=== PATIENT | female | born 1955 | race Caucasian/White ===

== ENCOUNTER → 2022-10-20 12:43 | Outpatient (CLI) | payer MEDICARE, SELFPAY ==
--- NOTE | ~2022-10-20 | CT_ITS ---
EXAMINATION: CT abdomen pelvis wo con DATE: 10/20/2022 13:01 INDICATION: Periumbilical abdominal tenderness TECHNIQUE: Computed tomography (CT) of the abdomen and pelvis was performed without intravenous contr ast. Automated exposure control and iterative reconstruction technique were employed. Exam dose: 494 .74 mGy-cm total exam DLP. COMPARISON: 07/29/2017 CT abdomen FINDINGS: There is a prominent discoid bands of atelectasis or scarring in the posterior right lung b ase, right lower lobe. Lung bases are clear of consolidation. Heart size is within normal range. No p ericardial or pleural effusion. Small sliding hiatal hernia. Status post cholecystectomy. No bile duct or pancreatic duct dilatation. There is an approximately 7.9 mm hypoattenuating lesion in the superior aspect of the spleen, not lik viktor of clinical significance. No hepatic or pancreatic space-occupying mass lesion. Normal morphology of the adrenal glands. Nearly completely calcified approximately 10 x 14 mm medial right upper pole lesion smaller more calc ified compared to 07/29/2017. No suspicious renal mass lesion is evident on this limited noncontrast examination. Subtle punctate nonobstructing upper pole left renal calculus. The urinary tract calculus or hydroureteronephrosis. The urinary bladder is unremarkable. Uterus is a bsent. There is atherosclerotic calcification of the abdominal aorta but no abdominal aortic aneurysm. No in traperitoneal or retroperitoneal or pelvic mass lesion or adenopathy or ascites. Diverticulosis of the colon no CT evidence of diverticulitis. No bowel obstruction, bowel wall thicke destiny, pneumatosis or intraperitoneal free air. Moderately severe degenerative disc disease at L5-S1. Included skeletal structures are otherwise unre markable. No suspicious osteolytic or osteoblastic lesions. IMPRESSION: Diminished size and nearly completely calcified lesion at the medial upper pole of right kidney, benign Status post cholecystectomy Status post hysterectomy Diverticulosis of the colon Nonspecific 7.9 mm hypoattenuating lesion of the spleen Reviewed, dictated and finalized at Location [facility]. Reviewed, dictated and finalized at location B. CASTING SUPERVISOR IMPRESSION: Diminished size and nearly completely calcified lesion at the medi al upper pole of right kidney, benign Status post cholecystectomy Status post hysterectomy Diverticulosis of the colon Nonspecific 7.9 mm hypoattenuating lesion of the spleen
== END ==
PROVIDERS: PCP Family Medicine; Visit Provider Family Medicine
DX: R10.815 Periumbilic abdominal tenderness (principal); Z90.49 Acquired absence of other specified parts of digestive tract; K57.30 Diverticulosis of large intestine without perforation or abscess without bleeding
CPT/HCPCS: 74176

== ENCOUNTER 2023-01-08 09:50 | Emergency (ER) | payer MEDICARE, SELFPAY ==
[2023-01-08 09:57] VITALS: BP 159/107; PULSE 105; RESP 19; TEMP 36.7; O2SAT 97
--- NOTE | 2023-01-08 10:03 | ED.EPISTAXIS ---
HPI - Epistaxis General Chief complaint: Epistaxis Stated complaint: nosbleed Source: patient Mode of arrival: EMS Limitations: no limitations History of Present Illness HPI Narrative: Patient is a 67 y/o female who presents to the ED via EMS with report of epistaxis from R nare. Patient reports the bleeding began around 8 AM this morning. She has had seasonal allergies and nosebleeds before, but nothing recently. She is not on any blood thinners. She does note she was recently started on Protonix for acid reflux. Patient was unable to control bleeding at home. She felt like the bleeding began overflowing to her L nare and down her throat. Denies difficulty breathing, recent nasal trauma or picking, congestion, rhinorrhea, fevers. Related Data Allergies Allergy/AdvReac Type Severity Reaction Status Date / Time No Known Allergies Allergy Verified 01/08/23 10:02 Review of Systems Review of Systems: CONSTITUTIONAL: Denies fever, chills, or sweats. ENT: See HPI. CARDIOVASCULAR: Denies chest pain. RESPIRATORY: Denies cough or dyspnea. GASTROINTESTINAL: Denies abdominal pain, nausea, vomiting. All systems reviewed & are unremarkable except as noted in HPI and below PMFSH Past Medical History Medical History Seasonal allergies Surgical History Surgical History No pertinent past surgical history Family History Family History Other Family history of malignant neoplasm of breast Family history of malignant neoplasm of uterus Hypertension Social History Social History Smoking status: Smoker, status unknown Alcohol intake: current Exam Narrative: GENERAL: Well appearing, well-nourished, non-toxic, in no acute distress. HEAD: Normocephalic, atraumatic. EYES: PERRLA/EOMI, conjunctiva clear. ENT: No nasal trauma. No obvious areas of bleeding visualized. Kiesselbach plexus appears unremarkable. Some blood pooling in bilateral nostril abel. Some blood draining down posterior pharynx. NECK: Supple. No adenopathy, no masses. RESPIRATORY: Airway patent, respirations nonlabored. Clear to auscultation bilaterally, no rales, rhonchi, wheezing. CARDIOVASCULAR: Regular rate and rhythm without murmurs, rubs, or gallops. Radial pulses 2+ and equal bilaterally. MUSCULOSKELETAL: Moves all extremities. Strength/ROM intact without gross deformities. SKIN: Warm, dry, normal color. No rashes. NEURO: A&O X3. Speech clear. Cranial nerves II-XII grossly intact. Steady gait. No ataxic movements. PSYCHIATRIC: Appropriate mood and affect. Normal interaction. Course Vital Signs Vital signs: Vital Signs Temperature 98.1 F 01/08/23 09:57 Pulse Rate 105 H 01/08/23 09:57 Respiratory Rate 19 01/08/23 09:57 Blood Pressure 159/107 H 01/08/23 09:57 Pulse Oximetry 97 01/08/23 09:57 Oxygen Delivery Room Air 01/08/23 09:57 Temperature 98.1 F 01/08/23 09:57 Pulse Rate 102 H 01/08/23 10:36 Respiratory Rate 18 01/08/23 10:36 Blood Pressure 142/92 H 01/08/23 10:36 Pulse Oximetry 97 01/08/23 10:36 Oxygen Delivery Room Air 01/08/23 09:57 MDM - Epistaxis MDM Narrative Medical decision making narrative: Unable to visualize area of bleeding. Epistaxis resolved with nasal clamping in the ED, likely anterior. Patient was monitored in the ED and had no recurrence of bleeding. She did not feel lightheaded or dizzy. Son at bedside to take her home and stay with her. She is able to ambulate with a steady gait. Will discharge with epistaxis precautions, nasal clamp, and ENT information for follow-up. Bacitracin ointment and Afrin sent to pharmacy. Patient given strict return precautions. She agrees with plan. Discharged in stable condition. Vitals stable at time of di
[2023-01-08 10:36] VITALS: BP 142/92; PULSE 102; RESP 18; O2SAT 97
== END 2023-01-08 12:22 | disposition home or self-care (01) ==
PROVIDERS: Emergency Provider Physician Assistant; PCP Family Medicine
DX: R04.0 Epistaxis (principal)
CPT/HCPCS: 99283

== ENCOUNTER → 2023-01-13 12:18 | Outpatient (CLI) | payer MEDICARE, SELFPAY ==
--- NOTE | ~2023-01-13 | MR_ITS ---
EXAMINATION: MR abdomen wo/w con DATE: 01/13/2023 13:35 INDICATION: Kidney mass. Splenic mass. TECHNIQUE: Magnetic resonance imaging (MRI) of the abdomen was performed without and with 13 mL Multi Yodit intravenous contrast. COMPARISON: CT abdomen and pelvis 10/20/2022, CT abdomen 07/29/17 FINDINGS: There is an 8 mm cyst in the liver. The gallbladder is absent. There is a 5 mm cyst in the spleen. Th e pancreas and adrenal glands are normal. There are cysts in the kidneys measuring up to 10 mm on the left. There is a 13 mm densely calcified mass of right kidney without enhancing component (Bosniak t ype IIF), decreased in size from 07/29/17, likely benign. There are no pathologically enlarged lymph no britni. There is no free intraperitoneal fluid. There are no dilated loops of bowel. IMPRESSION: 1. No evidence of malignancy. Reviewed, dictated and finalized at location A. PHORIC ACID OPERATOR
== END ==
PROVIDERS: PCP Family Medicine; Visit Provider Family Medicine
DX: N28.89 Other specified disorders of kidney and ureter (principal); R16.1 Splenomegaly, not elsewhere classified
CPT/HCPCS: 74183; A9577

== ENCOUNTER 2025-01-28 14:49 | Observation (INO) | payer MEDICARE, SELFPAY ==
[2025-01-28] VITALS (8 sets, daily range): BP systolic 129–174; BP diastolic 69–93; PULSE 70–84; RESP 16–20; TEMP 36.3–36.4; O2SAT 97–98; BMI 27.9; BMI 28.3
--- NOTE | ~2025-01-28 | CT_ITS ---
CTA brain carotid Ordering provider: Bob Marinelli MD History: . left arm weak and slurring speech . Comparison: None. Technique: CT angiogram head and neck was performed following timed intravenous injection of contrast . Thin slice axial images and reformatted coronal images were obtained. Three dimensional reformatted images of the brain were also obtained using a [employer] workstation. Radiation reduction technique ut ilized.The dose-length product was 1063.51 mGy-cm. 100 mL Omnipaque 350 was given IV. FINDINGS: HEAD: --ANTERIOR AND MIDDLE CEREBRAL ARTERIES AND BRANCHES: Normal caliber and contour. --INTERNAL CAROTID ARTERIES: Mild atheromatous disease but no significant stenosis. No occlusion. --BASILAR ARTERY AND BRANCHES: Normal caliber and contour. No atheromatous disease. --POSTERIOR CEREBRAL ARTERIES: Normal caliber and contour --POSTERIOR COMMUNICATING ARTERIES: Not visualized which is probably related to congenital absence or small size. --ANEURYSM: None visualized. --BRAIN: Please refer to report of CT head performed the same day. --BONES AND SUPERFICIAL SOFT TISSUES: Please refer to report of CT head performed the same day. --PARANASAL SINUSES AND MASTOIDS: Please refer to report of CT head done the same day. NECK: --RIGHT CERVICAL CAROTID SYSTEM: Mild atheromatous disease of the carotid bulb and proximal internal carotid artery without significant stenosis. Percent stenosis per NASCET criteria is 0%. No carotid dissection. Otherwise, no significant atheromatous disease or stenosis of the cervical carotid system . --LEFT CERVICAL CAROTID SYSTEM: Mild atheromatous disease of the carotid bulb and proximal internal c arotid artery without significant stenosis. Percent stenosis per NASCET criteria is 0%. No carotid d issection. Otherwise, no significant atheromatous disease or stenosis of the cervical carotid system. --VERTEBRAL ARTERIES: Dominant left vertebral artery. Normal caliber and contour. --VISUALIZED AORTIC ARCH AND BRANCHING VESSELS: Mild atheromatous disease but no significant stenosis . Dependent atelectatic changes. --SOFT TISSUES: Normal. Small submental lymph nodes. Slightly enlarged submandibular lymph nodes. --CERVICAL SPINE: Age appropriate degenerative changes. IMPRESSION: 1. Normal CTA head and neck. Percent stenosis per NASCET criteria is Reviewed, dictated and finalized at location A.
--- NOTE | ~2025-01-28 | CT_ITS ---
CT brain wo con Ordering provider: Bob Marinelli MD History: 69 years Female with . left arm weak and slurring speech . Comparison: None. Technique: CT of the head without contrast. Radiation reduction technique utilized.The dose-length product was 605.33 mGy-cm. FINDINGS: BRAIN PARENCHYMA AND CSF SPACES: Mild leukoaraiosis and diffuse cortical atrophy. Mild atheromatous d isease. No midline shift, mass effect or hemorrhage. The brain parenchyma and CSF spaces are otherwi se normal. Empty sella turcica. VISUALIZED PARANASAL SINUSES: Right maxillary sinus disease. MASTOIDS: Well aerated. BONES: The bones appear intact. SOFT TISSUES: Visualized nasopharynx is normal. Superficial soft tissues are normal. IMPRESSION: No acute intracranial findings. Reviewed, dictated and finalized at location A.
--- NOTE | ~2025-01-28 | MR_ITS ---
EXAMINATION: MR brain/brain stem wo/w con DATE: 01/29/2025 09:18 INDICATION: Left hemiparesis. Slurred speech. TECHNIQUE: Magnetic resonance imaging (MRI) of the brain and brainstem was performed without and with 15 mL ProHance intravenous contrast. COMPARISON: Head CT 01/28/2025 FINDINGS: There are scattered areas of nonspecific increased T2-weighted signal intensity in the cere bral white matter and isaac and left basal ganglia. There is no intracranial hemorrhage, acute infarct ion, or abnormal intracranial mass lesion. The ventricles are normal in size. The orbits are normal. There is mild mucosal thickening in the paranasal sinuses. The mastoid air cells are normal. IMPRESSION: 1. Extensive nonspecific cerebral white matter disease and pontine disease and left basal ganglia dis ease, which likely represents chronic small vessel ischemic disease. Reviewed, dictated and finalized at location B. IMPRESSION: 1. Extensive nonspecific cerebral white matter disease and pontine disease and left basal ganglia disease, which likely represents chronic small vessel ischem ic disease.
--- NOTE | ~2025-01-28 | XR_ITS ---
XR chest 1V portable Ordering provider: Bob Marinelli MD History: 69 years Female with . 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 Comparison: None. FINDINGS: MEDIASTINUM: The cardiac silhouette is not enlarged. LUNGS: No infiltrates, effusions or pneumothorax. Underlying fibrotic changes. OTHER: No free air under the diaphragm. IMPRESSION: No acute cardiopulmonary pathology. Reviewed, dictated and finalized at location A.
--- NOTE | 2025-01-28 14:58 | ECG_ITS ---
Test Date: 2025-01-28 15:51:51 Measurements Intervals [place] Rate: 75 P: 56 MI: 192 QRS: 23 QRSD: 85 T: -2 QT: 366 QTc: 409 Interpretive Statements SINUS RHYTHM SEPTAL MYOCARDIAL INFARCTION , OF INDETERMINATE AGE [40+ ms Q WAVE IN V1/V2] NONSPECIFIC T WAVE ABNORMALITY Compared to ECG 01/28/2025 15:38:44 NO SIGNIFICANT CHANGES Electronically Signed On 01-29-2025 14:31:21 CDT by Robin Ruiz M.D.
--- NOTE | 2025-01-28 15:00 | ED_ITS ---
HPI - Neuro Symptoms/Deficit General Chief Complaint: Suspected CVA Stated Complaint: Left hand numb, visual changes, speech slurry Time Seen by Provider: 01/28/25 14:58 History of Present Illness HPI Narrative: 69-year-old female with a past medical history including migraine headaches, hyperlipidemia, 45 pack year smoking history. Patient presents to the emergency department today with sudden onset left upper extremity deficits and slowing of her speech that happened at about 1:15 p.m. and witnessed by the son who is providing collateral formation. 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 Her son noted that she had garbled speech. Upon arrival to the emergency department most of her symptoms have since resolved and she currently has an NIH stroke scale 0 in the stroke stop triage. Patient endorses a mild headache at this time but no deficits. No fever, chills, chest pain, shortness with, back pain, neck pain, trauma or injury. No history of stroke or TIA in the past. Takes rosuvastatin but no other prescription medications. Related Data Home Medications ?Medication ?Instructions ?Recorded ?Confirmed ?Last Taken ?Type loratadine 10 mg tablet 10 mg PO DAILY 01/12/23 01/13/23 Unknown History Allergies Allergy/AdvReac Type Severity Reaction Status Date / Time No Known Allergies Allergy Verified 01/28/25 14:51 Review of Systems 2 Review of Systems: As reviewed above in HPI [facility] Past Medical History Medical History Seasonal allergies Surgical History Surgical History No pertinent past surgical history Family History Family History Mother Cancer Depression Heart disease Cerebrovascular accident Grandparent Cancer Diabetes mellitus Hypertension Cerebrovascular accident Other Family history of malignant neoplasm of breast Family history of malignant neoplasm of uterus Social History Social History Smoking status: Smoker, status unknown Alcohol intake: current Exam 2 Narrative: GENERAL: [Well-appearing, well-nourished, and in no acute distress.] HEAD: [Normocephalic, atraumatic.] EYES: [PERRLA and EOMI.] ENT: Nares clear, no rhinorrhea or epistaxis. Mucous membranes moist. NECK: Supple. CHEST: [Clear to auscultation. No respiratory distress.] HEART: [Regular rate and rhythm]. No murmur heard. [Normal peripheral pulses.] ABDOMEN: [Soft, nondistended], [nontender], [No rigidity or guarding] EXTREMITIES: Normal range of motion. [No edema.] SKIN: Warm, dry, no rash. NEURO: [No focal deficits]. Alert and oriented [x3.] PSYCH: [Normal mood and affect.] Course Vital Signs Vital signs: Vital Signs Temperature 36.4 C 01/28/25 15:36 Pulse Rate 79 01/28/25 15:36 Respiratory Rate 18 01/28/25 15:36 Blood Pressure 174/88 H 01/28/25 15:36 Pulse Oximetry 97 01/28/25 15:36 Oxygen Delivery Room Air 01/28/25 15:36 Temperature 36.4 C 01/28/25 15:36 Pulse Rate 84 01/28/25 15:48 Respiratory Rate 20 01/28/25 15:48 Blood Pressure 174/88 H 01/28/25 15:36 Pulse Oximetry 98 01/28/25 15:52 Oxygen Delivery Room Air 01/28/25 15:52 MDM - Neuro Symptoms/Deficit MDM Narrative Medical decision making narrative: 69-year-old female presenting for suspected CVA versus TIA versus hemiplegic migraine. Patient presents to the emergency department with a complaint of headache, left upper extremity deficits and speech deficits with slurring of her words. Sudden-onset 1:15 p.m. witnessed by family at bedside. Symptoms have since resolved upon arrival to the ED with a toe NIH stroke scale 0. No history of anything like this happened during the past. She is slightly hypertensive the blood pressure 174/88, no tachycardia, fever, hypoxia or tachypnea. She was sent to CT scan with CT angiography and non con orders at this time. Cardiac workup ordered including troponin, EKG, chest x-ray and basic laboratory studies. Patient was frequent re-evaluated. During my 2nd re-evaluation patient had complete resolution of her headache without any intervention. Maintain with hemodynamic stability without any vital concerns at this time. CT scan and CT angiography scan shows no acute intracranial hemorrhage or acute occlusive event, dissection, aneurysm. Cardiac workup was unremarkable, negative troponin, normal EKG and negative chest x-ray. I spoke to the neurologist of call and relayed the concerns for potential TIA. Recommendations to order MRI with and without contrast and this start the patient on dual antiplatelet therapy in addition to her statin. Patient was given 325 mg aspirin 375 mg of Plavix and scheduled aspirin Plavix tomorrow. Awaiting hospitalist call for admission to a telemetry monitored bed at this time. Patient comfortable with the plan of care for admission and MRI imaging. Spoke to the hospitalist currently being covered by the midlevel provider Roula Larson. Patient was accepted to a telemetry monitored bed at this time. Admit orders placed. Medical Records Attestation: I reviewed the patient's medical records. Lab Data Attestation: I reviewed the patient's lab results. 01/28/25 15:05 01/28/25 15:07 Labs: Lab Results 01/28/25 01/28/25 01/28/25 Range/Units 14:55 15:05 15:07 WBC 9.0 (4.5-10.0) K/mm3 RBC 4.49 (4.2-5.4) M/mm3 Hgb 13.3 (12.0-15.0) g/dL Hct 39.1 (37.0-47.0) % MCV 87.1 (80-100) fl MCH 29.6 (26-34) pg MCHC 34.0 (32-36) g/dl RDW 12.2 (11.5-14.5) % Plt Count 321 (150-375) k/mm3 MPV 9.8 (7.4-10.4) fl Immature Gran % (Auto) 0.2 (0-0.5) % Neut % (Auto) 64.1 (45.5-73.1) % Lymph % (Auto) 28.8 (18.3-44.2) % Collier % (Auto) 4.3 (2.6-8.5) % Eos % (Auto) 2.2 (0-4.4) % Baso % (Auto) 0.4 (0.2-1.2) % Lymph # (Auto) 2.58 (0.9-3.2) K/mm3 Collier # (Auto) 0.4 (0.1-0.6) K/mm3 Eos # (Auto) 0.2 (0-0.3) K/mm3 Baso # (Auto) 0.0 (0.0-0.1) K/mm3 Abs Immat Gran (auto) 0.02 (0.00-0.031) K/mm3 Absolute Neuts (auto) 5.7 (1.3-6.7) K/mm3 Absolute Nucleated RBC 0.000 (0.0-0.012) K/mm3 Nucleated RBC % 0.0 (0.0-0.2) % PT 13.5 (11.1-14.7) Seconds INR 1.0 APTT 24.6 (22.3-36.8) Seconds Sodium 139 (137-145) mmol/L Potassium 3.8 (3.4-5.0) mmol/L Chloride 104 (98-107) mmol/L Carbon Dioxide 23 (22-30) mmol/L Anion Gap 12 (4-12) mmol/L BUN 13 (7-17) mg/dL Creatinine 0.93 1.00 (0.7-1.0) mg/dL Estim Creat Clear Calc Not Reportable Not Reportable Estimated GFR 60 55 L (59 - ) Glucose 118 H (65-110) mg/dL POC Capillary Glucose 113 H (65-105) mg/dl Calcium 9.8 (8.4-10.2) mg/dL Total Bilirubin 0.8 (0.2-1.3) mg/dL AST 25 (14-36) U/L ALT 20 (6-35) U/L Alkaline Phosphatase 87 (38-126) U/L Troponin I < 0.012 (0.000-0.034) ng/mL Total Protein 8.0 (6.3-8.2) g/dL Albumin 4.7 (3.5-5.1) g/dL Imaging Data Attestation: I personally reviewed and interpreted this imaging study as follows: My impression: Impressions Head CT 01/28/25 15:04 IMPRESSION: No acute intracranial findings. Head/Neck CTA 01/28/25 15:14 IMPRESSION: 1. Normal CTA head and neck. Percent stenosis per NASCET criteria is Chest X-Ray 01/28/25 15:41 IMPRESSION: No acute cardiopulmonary pathology. ECG Data EKG #1: Attestation: I personally reviewed and interpreted this ECG as follows: ECG completion date: 01/28/25 ECG completion time: 15:38 Prior ECG tracings: not available for review Interpretation: Normal sinus rhythm, regular rate, regular rhythm and axis. No ST segment elevations, depressions or inversions. No previous EKG for comparison. QTC 424, QRS 89, ID interval 191. Overall final determination normal sinus rhythm. Critical Care Time Critical Care Time Critical Care Time: Yes Total Critical Care Time: 35 Discharge Plan Discharge Clinical Impression: Transient ischemic attack (TIA), Migraine Patient Disposition: Still a Patient Condition: Stable Patient Language: Namibian Prescriptions: No Action loratadine 10 mg tablet 10 mg PO DAILY Follow-up/Referrals: Oscar,Fly Marcano MD [Primary Care Provider] - Time of Disposition: 16:13 Quality Stroke Scale Stroke Scale 1: Stroke scale date:: 01/28/25 Stroke scale time:: 15:00 1a Level of consciousness: alert-0 1b Level of consciousness questions: answers both correctly-0 1c Level of consciousness commands: obeys both correctly-0 2 Best gaze: normal-0 3 Visual: no visual loss-0 4 Facial palsy: normal-0 5a Motor: left arm: no drift-0 5b Motor: right arm: no drift-0 6a Motor: left leg: no drift-0 6b Motor: right leg: no drift-0 7 Limb ataxia: absent-0 8 Sensory: normal-0 9 Best language: no aphasia-0 10 Dysarthria: normal-0 11 Extinction and inattention: no abnormality-0 Level:: 0
[2025-01-28 15:08] LABS: Estimated Glomerular Filt Rate 55
[2025-01-28 15:13] LABS: Basophils Percent Auto 0.4 % (0.2-1.2); Eosinophils Absolute Auto 0.2 K/mm3 (0-0.3); Eosinophils Percent Auto 2.2 % (0-4.4); Hematocrit 39.1 % (37.0-47.0); Hemoglobin 13.3 g/dL (12.0-15.0); Immature Granulocyte Absolute 0.02 K/mm3 (0.00-0.031); Immature Granulocyte Percent A 0.2 % (0-0.5); Lymphocytes Absolute Auto 2.58 K/mm3 (0.9-3.2); Lymphocytes Percent Auto 28.8 % (18.3-44.2); Mean Corpuscular Hemoglobin 29.6 pg (26-34); Mean Corpuscular Volume 87.1 fl (80-100); Mean Platelet Volume 9.8 fl (7.4-10.4); Monocytes Absolute Auto 0.4 K/mm3 (0.1-0.6); Monocytes Percent Auto 4.3 % (2.6-8.5); Neutrophils Absolute Auto 5.7 K/mm3 (1.3-6.7); Neutrophils Percent Auto 64.1 % (45.5-73.1); Platelet Count Result 321 k/mm3 (150-375); Red Blood Count 4.49 M/mm3 (4.2-5.4); Red Cell Distribution Width 12.2 % (11.5-14.5)
[2025-01-28 15:24] LABS: Alanine Aminotransferase 20 U/L (6-35); Albumin Level 4.7 g/dL (3.5-5.1); Alkaline Phosphatase 87 U/L (38-126); Anion Gap 12 mmol/L (4-12); Aspartate Amino Transferase 25 U/L (14-36); Bilirubin,Total 0.8 mg/dL (0.2-1.3); Blood Urea Nitrogen 13 mg/dL (7-17); Calcium 9.8 mg/dL (8.4-10.2); Carbon Dioxide 23 mmol/L (22-30); Chloride 104 mmol/L (98-107); Estimated Glomerular Filt Rate 60; Glucose 118 mg/dL (65-110); Potassium 3.8 mmol/L (3.4-5.0); Sodium 139 mmol/L (137-145)
[2025-01-28 15:34] LABS: Prothrombin Time 13.5 Seconds (11.1-14.7)
[2025-01-28 15:35] LABS: Partial Thromboplastin Time 24.6 Seconds (22.3-36.8); Troponin I < 0.012 ng/mL (0.000-0.034)
--- NOTE | 2025-01-28 15:47 | ECG_ITS ---
Test Date: 2025-01-28 15:38:44 Measurements Intervals [place] Rate: 79 P: 59 IA: 191 QRS: 18 QRSD: 89 T: -4 QT: 370 QTc: 424 Interpretive Statements SINUS RHYTHM WITH SINUS ARRHYTHMIA SEPTAL MYOCARDIAL INFARCTION , OF INDETERMINATE AGE [40+ ms Q WAVE IN V1/V2] BASELINE ARTIFACT LIMITS INTERPRETATION No previous ECG available for comparison Electronically Signed On 01-29-2025 14:30:40 CDT by Robin Ruiz M.D.
[2025-01-28 16:07] LABS: Glucose Point of Care 113 mg/dl (65-105)
[2025-01-28] MEDS: CLOPIDOGREL BISULFATE 75 MG TABLET 375 MG PO (16:22)
[2025-01-28] MEDS: ASPIRIN 325 MG TABLET PO (16:23)
--- OUTSIDE RECORDS SUMMARY | 2025-01-28 17:24 | XMS_ITS | Clinical Summary ---
Author Organization [facility] Address [address], [facility] [address] [place] [address] Phone Care Team Providers Care Boiler Inspector Name Role Phone Fly Moore MD Primary Care Provider Allergies No known active allergies Medications aspirin EC 81 MG Tablet Delayed Response Take 81 mg by mouth daily. Active Loratadine (CLARITIN PO) Take by mouth daily as needed. Active hyoscyamine (LEVSIN SL) 0.125 MG SL Tablet 125 mcg by Sublingual route every 4 hours as needed for Cramping. Active Family History Medical History Relation Name Comments Cerebral Anuerysm Father Cancer Mother cervical, uteri ne, skin Congestive Heart Failure Mother Hypertension Mother Relation Name Status Comments Father Mother Alive Social History Tobacco Use Types Packs/Day Years Used Date Smoking Tobacco: Every Day Cigarettes 0.5 54.2 Started: 11/01/1970 Smokeless Tobacco: Never Alcohol Use Standard Drinks/Week Comments Yes 0 (1 standard drink = 0.6 oz pur e alcohol) rarely-2 drinks per month Comments Unknown Sex and Gender Information Value Date Recorded Sex Assigned at Not on file Legal Sex Female 1:02 PM CDT Gender Identity Not on file Sexual Orientation Not on file Last Filed Vital Signs Vital Sign Reading Time Taken Comments Blood Pressure 118/72 01/10/2018 8:15 AM SPINNING MULE OPERATOR Pulse 74 01/10/2018 8:15 AM SPINNING MULE OPERATOR Temperature 36 C (96.8 F) 01/10/2018 8:15 AM SPINNING MULE OPERATOR Respiratory Rate 20 01/10/2018 8:15 AM SPINNING MULE OPERATOR Oxygen Saturation 96% 01/10/2018 8:15 AM SPINNING MULE OPERATOR Inhaled Oxygen Concentration - - Weight 58.1 kg (128 lb) 01/04/2018 1:00 PM SPINNING MULE OPERATOR Height 162.6 cm (5' 4 ) 01/04/2018 1:00 PM SPINNING MULE OPERATOR Body Mass Index 21.97 01/04/2018 1:00 PM SPINNING MULE OPERATOR Plan of Treatment Health Maintenance Due Date Last Done Comments DEXA Bone Density 1955 Hepatitis C Virus (HCV) Screening 1955 TdaP Immunization 1955 Cologuard 2007 Immunochemical Fecal Occult Blood 2007 Mammogram 2007 Zoster Immunization (1 of 2) 2007 Colonoscopy 01/10/2019 01/10/2018, 12/23, 11/07/2017 Colorectal Cancer Screening 01/10/2019 Pneumococcal Immunization (50+ years) (2 of 2 - PPSV23) 06/24/2023 06/24/2022 Influenza Immunization (#1) 07/22/202409/21, 08/20/2020, 08/20/2019, Additional history exists SARS-COV-2 Immunization ( season) 2024 11/15/2021, 01/23/2021 Respiratory Syncytial Virus (RSV) Immunization (Adult) (1 - 1-dose 75+ series) 2032 01/10/2018, 12/23, 11/07/2017 Pneumococcal Immunization Combined Discontinued 06/24/2022 Hepatitis B Immunization Aged Out No longer eligible based on patient's age to complete this topic Meningococcal Immunization (ACWY) Aged Out No longer eligible based on patient's age to complete this topic Rotavirus Immunization Aged Out No lo nger eligible based on patient's age to complete this topic Insurance MEDICAID [employer] MEDICARE C [employer] Care Teams Boiler Inspector Relationship Specialty Start Date End Date Fly Moore MD [address] [place] [address] PCP - General Family Medicine 11/04/22
--- OUTSIDE RECORDS SUMMARY | 2025-01-28 17:24 | XMS_ITS | Continuity of Care Document ---
Author Organization [facility] Address [address] [place] [address] Phone Care Team Providers Care Digester Cook Name Role Phone Ciaran Guzman MD Unavailable Unavailable Allergies, Adverse Reactions, Alerts Substance Reaction Status Criticality metronidazole Other Active No Information METRONIDAZOLE HCL Other Active No Informa tion Medications Medication Instructions Dosage Effective Dates (start - stop) Status Comments Levsin/SL 0.125 mg sublingual tablet Take 1 tablet by mouth 4 times a day as needed. - Active Prilosec OTC 20 mg tablet,delayed release take 1 by Oral route once prn 1 - Active Advance Directives Directive Yes / No Effective Date File Name No Information Encounters Encounter Description Practice Location Reason(s) For Visit Diagnoses Date Provider Providers Copied on Encounter [facility] [address], [place], [place], [address] , tel: [phone] [place] No Information 7 Megan Wagoner. [address] [address], [place], [place], [address] , [place]. tel: [phone] [facility] [address], [place], [place], [address] , [place] tel: [phone] [place] Abnormal CT scan, kidney 6 Megan Wagoner. [address], [facility] [address], [place], [place], [address] , . tel: [phone] [employer] [address], [place], [place], [address] , tel: [phone] [place] Epigastric abdominal painLower abdominal painTobacco useAbnormal CT scan, kidneyFamily disruption due to divorce or legal separation 6 Woodrowcody Edwards. [address], [address], [place], [place], [address] . tel: [phone] Referring Provider: Ciaran Guzman, [address] [place] [address] [address], [place], [address] . tel:[phone] [facility], [address], [place], [place], [address] , [place] tel: [phone] [facility] Tobacco AbuseExternal hemorrhoidMigraineDi verticulitis of sigmoid colonCyst of right kidneySPECIAL SCREENING FOR MALIGNANT NEOPLASMS, OTHER SITES 4 Pricila Grace. [address], [address], [place], [place], [address] . tel: [phone] Referring Provider: Ciaran Guzman, [address] [place] [address] [address], [place], [address] . tel:[phone] [facility] [address], [place], [place], [address] , [place] tel: [phone] [place] No Information Jan- 3 Pricila Edwards. [facility] [address], [place], [place], [address] . tel: [phone] [employer] [address], [place], [place], [address] , [place] tel: [phone] [facility] Allergic rhinitis, cause unspecifiedOther and unspecified hyperlipidemiaOsteop orosis, unspecifiedDisorder of bone and cartilage, unspecifiedMigraine, unspecified without mention of intractable migraineEnlargement of lymph nodesTobacco useVitamin d deficiencyFamily history of breast cancerOther and unspecified hyperlipidemiaRoutin e gynecological examinationSPECIAL SCREENING FOR MALIGNANT NEOPLASMS, OTHER SITES Jan- 3 Pricila Edwards. [address], [place], [place], [address] . tel: [phone] Referring Provider: Ciaran Guzman [address] [place] [address] [address], [place], [address] . tel:[phone] [facility], [address], [place], [place], [address] , [place] tel: [phone] [facility] POSTMENOPAUSAL BLEEDING 1 Megan Wagoner. [address], [address], [place], [place], [address] , [place]. tel: [phone] [facility], [address], [place], [place], [address] , [place] tel: [phone] [facility] VITAMIN D DEFICIENCY NOS 1 Pricila Domingon. [address] [place] [address], [address], [place], [place], [address] . 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 [address] [place] [address], [address], [place], [address], [place]. tel: [phone] [facility], [address], [place], [address] , [place] tel: [phone] [facility] MENOPAUSAL DISORDER NECSCREEN MAL NEOP-CERVIXFAMILY HX-BREAST MALIGPURE HYPERCHOLESTEROLEM 1 Pricila Grace. [address] [place] [address], [facility] [address], [place], [place], [address] . tel: [phone] [facility], [address], [place], [place], [address] , [place] tel: [phone] [facility] VRNT MGRN W NTRC MGR NEC 0 Pricila Grace. [address] [place] [address], [address], [place], [place], [address] . tel: [phone] [facility], [address], [place], [place], [address] , [place] tel: [phone] [facility] NONRUPT CEREBRAL ANEURYMHYPERLIPIDEMI A NEC/NOSVISUAL DISCOMFORT 0 Megan Jacobsen. [address], [address], [place], [place], [facility], [place]. tel: [phone] [employer] [address], [place], [place], [address] , [place] tel: [phone] [facility] DERMATITIS NOSSCREEN-DIABETES MELLITUSSCREEN MALIG [id number] WILMA HEART DIS 8 Megan Jacobsen. [address], [address], [place], [place], [facility], [place]. tel: [phone] [employer] [address], [place], [place], [address] , [place] tel: [phone] [facility] ACUTE SINUSITIS NOSAC SUPP OTITIS MEDIA NOS 7 Megan Jacobsen. [address] [place] [address], [facility] [address], [place], [facility], [place]. tel: [phone] [employer] [employer] [address], [place], [place], [address] , [place] tel: [phone] [facility] JOINT PAIN-L/LEGENTHESOPAT HY OF HIPCALCIF TENDINITIS SHLDERABN PAP CERVIX HPV NEC 7 Megan Jacobsen. [address] [place] [address], [address], [place], [facility], [place]. tel: [phone] [facility], [address], [place], [place], [address] , [place] tel: [phone] [facility] FAMILY HX-STROKE 7 Mscody Domingon. [address] [place] [address], [facility] [address], [place], [place], [address] . tel: [phone] [employer] [address], [place], [place], [address] , [place] tel: [phone] [place] CARBUNCLE NOS 7 Woodrowcody Grace. [address] [place] [address], [facility] [address], [place], [place], [address] . tel: [phone] [facility], [address], [place], [place], [address] , [place] tel: [phone] [facility] FAM HX-DIABETES MELLITUS 7 Woodrowcody Edwards. [address], [address], [place], [place], [address] . tel: [phone] [facility], [address], [place], [place], [address] , [place] tel: [phone] [facility] ROUTINE MEDICAL EXAMOSTEOPOROSIS NOS 5 Megan Delmar. [address], [address], [place], [address], [place]. tel: [phone] [facility], [address], [place], [place], [address] , [place] tel: [phone] [place] SPRAIN LUMBAR REGION 4 Woodrowcody Edwards. [address] [place] [address], [address], [place], [place], [address] . tel: [phone] [facility], [address], [place], [place], [address] , [place] tel: [phone] [place] ABN GLANDULAR PAP SMEAR 4 Meganyonathan Jacobsen. [address], [address], [place], [address], [place]. tel: [phone] [facility], [address], [place], [place], [address] , [place] tel: [phone] [facility] SYMPT FEM CLIMACT STATEGYNECOLOGIC EXAMINATION 0 4 Pricila Edwards. [facility] [address], [place], [place], [address] . tel: [phone] [facility], [address], [place], [address] , [place] tel: [phone] [place] ACUTE CONJUNCTIVITIS NOS 2 4 Pricila Edwards. [address], [place], [place], [address] . tel: [phone] [facility], [address], [place], [place], [address] , [place] tel: [phone] [facility] HEADACHE Feb- 4 Pricila Edwards. [address], [facility] [address], [place], [place], [address] . tel: [phone] [facility], [address], [place], [place], [address] , tel: [phone] [facility] ALLERGIC RHINITIS NOS Feb- 8200 4 Pricila Edwards. [address] [place] [address], [address] [address], [place], [place], [address] . tel: [phone] [facility], [address], [place], [place], [address] , tel: [phone] [facility] LUMBAGO Sep-0 2200 3 Pricila Edwards. [address] [place] [address], [address] [address], [place], [place], [address] . tel: [phone] [facility], [address], [place], [place], [address] , tel: [phone] [facility] VAGINITIS NOSCANDIDAL VULVOVAGINITISSEBACE OUS CYSTFM HX-ENDO/METAB DIS NECAC SEROUS OTITIS MEDIA 9200 3 Pricila Edwards. [address] [place] [address], [address] [address], [place], [place], [address] . tel: [phone] [facility], [address], [place], [place], [address] , tel: [phone] [facility] FAMILY HX-GI MALIGNANCY 2 Pricila Edwards. [address] [place] [address], [place], [place], [address] . tel: [phone] Family History Family Member Type Diagnosis Age At Onset Problem (finding) Family history of cance r of colon Mom, MGM Problem (finding) malignant neoplasm of m doug breast Dad, p uncle, cousin Problem (finding) Cererbral aneur ysm Mother Problem (finding) diabetes melli tus in first degree relative Mother Problem (finding) coronary arterioscleros is MGM Problem (finding) stroke Immunizations Vaccine Date Status Comments 72657 - Tetanus_Diptheria_Pertussis_Tdap administered Source: Source Unspecified Payers Payer name Insurance type Covered constitution party ID Authoriza tion(s) [facility] CI [id number] Social History Type Description Quantity Date Captured Comments Alcohol Use Details Unknown Caffeine Use Details Unknown Tobacco Use Status No Information Smoking Status No Information Sex Female Chief Complaint And Reason For Visit No Information Reason For Referral Reason For Referral No Information History Of Present Illness Encounter Date Complaint History Of Prese nt Illness No Information Functional Status Date Functional Assessmen t No Information Instructions Date Instruction Additional Infor mation No Information Assessments Type Assessment Date No Information Patient Care Teams Name Effective Dates (start - stop) Status Members No Information
--- OUTSIDE RECORDS SUMMARY | 2025-01-28 17:24 | XMS_ITS | Clinical Summary ---
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 Name Role Phone Fly Moore MD Primary Care Provider [phone] Allergies Active Allergy Reactions Criticality Noted Date Comments Pantoprazole Other (See comments) Low 12/28/2023 Nose bleeds Medications loratadine 10 mg capsule Take by mouth daily as needed Active cholecalciferol (VITAMIN D-3) 5,000 unit tablet Active rosuvastatin (CRESTOR) 10 mg tablet TAKE 1 TABLET BY MOUTH EVERY DAY 30 tablet 2 5 Active olopatadine (PATANOL) 0.1 % ophthalmic solutionIndicat ions:Allergic Conjunctivitis, Ocular Symptom Associated with Allergic Rhinitis Administer 1 drop into both eyes 2 (two) times a day as needed for allergies 15 mL 2 5 12/28/19 26 Active celecoxib (CeleBREX) 50 mg capsuleIndicati ons:Trigger middle finger of right hand,Trigger ring finger of right hand Take 1 capsule (50 mg total) by mouth 2 (two) times a day 60 capsule 5 01/06/20 25 Active Problems Problem Noted Date Diagnosed Date Trigger ring finger of right hand 12/07/2024 Right hand pain 12/07/2024 Trigger middle finger of right hand 12/07/2024 Trigger finger, right middle finger 06/27/2024 Primary hypertension 06/27/2023 Assessment & Plan (12/28/2023 10:08 AM IRON MINER): Blood Pressure Follow-up: Lifestyle modifications education provided on sodium reduction, increase physical activity, reduce alcohol consumption, and weight reduction. Awaiting labs Mixed hyperlipidemia 06/27/2023 Assessment & Plan (12/28/2023 10:08 AM IRON MINER): Awaiting lipid panel Vitamin D insufficiency 06/27/2023 Family history of colon cancer in mother 022 Overview (11/01/2022): Added automatically from request for surgery [id number] Personal history of colonic polyps 11/01/2022 Overview (11/01/2022): Added automatically from request for surgery [id number] Encounter for Medicare annual wellness exam 03/2022 Assessment & Plan (12/28/2024 8:39 AM IRON MINER): A(n) yearly Medicare Annual Wellness Visit has been performed today. Mary Rojas is not up to date on screening tests. She is in need of DEXA and Hepatitis B. She is up to date on needed preventative vaccinations. We discussed healthy lifestyle habits, educational material has been given. Medications reviewed, changes documented as per the medical record and discussed with patient along with risks vs benefits. Return in 6 months Assessment & Plan (06/27/2023 9:50 AM CDT): A(n) yearly Medicare Annual Wellness Visit has been performed today. Mary Rojas is not up to date on screening tests. She is in need of Lung cancer screening and Cholesterol screening- Lung cancer screen ordered. She is not up to date on needed preventative vaccinations; She is in need of Pneumonia (Prevnar-13 or Pneumovax- 23) and Covid-19 (booster). We discussed healthy lifestyle habits, educational material has been given. Medications reviewed, changes documented as per the medical record and discussed with patient along with risks vs benefits. Return in 6 months Assessment & Plan (06/25/2022 5:27 PM CDT): A(n) initial Medicare Annual Wellness Visit has been performed today. Mary Rojas is not up to date on screening tests. She is in need of DEXA, Breast cancer screening, Lung cancer screening and Colon cancer screening. She is not up to date on needed preventative vaccinations; She is in need of Covid-19 (booster). Encounters Date Type Department Care Team Description 12/31/2024 Patient Message [facility] Primary Care at [address] [phone] Fly Moore MD Dermatology referral 12/28/2024 8:00 AM IRON MINER Office Visit [facility] Primary Care at [address] [phone] Fly Moore MD Encounter for Medicare annual wellness exam (Primary Dx); Vitamin D insufficiency; Primary hypertension; Mixed hyperlipidemia; Screening for osteoporosis; Seasonal allergies; Asymptomatic menopausal state; Screening exam for skin cancer 12/26/2024 3:17 PM IRON MINER - 12/26/2024 11:59 PM IRON MINER Hospital Encounter [address] [address] Personal history of tobacco use Discharge Disposition: Discharge to home or self care 12/26/2024 8:15 AM IRON MINER Office Visit [facility] Hand Surgery [address] [facility] [address] [place] [phone] Delmy Harrison, PAT Trigger middle finger of right hand (Primary Dx); Trigger finger, right middle finger 12/24/2024 9:30 AM IRON MINER Lab [facility] Outpatient Lab at [address] [phone] Mixed hyperlipidemia (Primary Dx) 12/24/2024 9:27 AM IRON MINER - 12/24/2024 11:59 PM IRON MINER Hospital Encounter [address] [address] Primary hypertension; Mixed hyperlipidemia Discharge Disposition: Discharge to home or self care 12/21/[address] [address] Ines Nunn RN 12/13/2024 9:30 AM IRON MINER - 12/13/2024 10:00 AM IRON MINER Surgery [facility] OR [address] [place] [phone] Casa New MD RIGHT LONG AND RING A1 WALT RELEASE 12/13/2024 7:08 AM IRON MINER - 12/13/2024 9:50 AM IRON MINER Hospital Encounter [facility] Main OR [address] [place] [address] Casa New MD Trigger middle finger of right hand [M65.331] (Primary Dx); Trigger ring finger of right hand [M65.341] Discharge Disposition: Discharge to home or self care 12/07/2024 7:45 AM IRON MINER Office Visit [facility] Hand Surgery [address] [facility] [address] [place] [phone] Casa New MD Right hand pain (Primary Dx); Trigger finger, right middle finger; Trigger middle finger of right hand; Trigger ring finger of right hand 12/07/2024 7:38 AM IRON MINER - 12/07/2024 11:59 PM IRON MINER Hospital Encounter [facility] MOB 1 DIAG IMG [address] [place] [address] Right hand pain Discharge Disposition: Discharge to home or self care from Last 3 Months Immunizations Immunization Administration Dates Next Due Influenza, Quadrivalent, Diana l Culture-based MDCK, Preservative Free, Antibiotic Free, Intramuscular 08/20/2020 Influenza, Quadrivalent, Hig h Dose, Preservative Free, Intrr 10/05/2022 Influenza, Quadrivalent, Spl it, Preservative Free, Intramuscular 08/20/2019,08/09/2018,09/19/2017 Influenza, Trivalent, High D ose, Split, Preservative Free, Intramuscular 08/23/2024 Influenza, Unspecified 12/28/2023(Deferr ed: Patient Refused),11/21/2022(Deferred: Patient Refused),10/05/2022(Deferred: Other) Pneumococcal Conjugate PCV 13 06/24/2022 Pneumococcal Conjugate Pcv20 06/27/2023 Surgical History Surgery Date Site/Laterality Comments CHOLECYSTECTOMY Cholecystectomy TOTAL ABDOMINAL HYSTERECTOMY Hysterectomy, total RHINOPLASTY Rhinoplasty TONSILLECTOMY Tonsillectomy BUNIONECTOMY Medical History Medical History Date Comments Irritable bowel syndrome Allergic Osteopenia Diverticulitis Hyperlipemia Family History Medical History Relation Name Comments Cerebral aneurysm Father Breast cancer Maternal Grandmother Arthritis Mother Breast cancer Mother Cancer, breast ; Dementia Mother Uterine cancer Mother Cancer, uteri ne; Relation Name Status Comments Brother Alive Father Maternal Grandmother Mother Alive Sister 1 Alive Sister 2 Alive Social History Tobacco Use Types Packs/Day Years Used Date Smoking Tobacco: Former Cigarettes 1 49 1 970 - 2019 Smokeless Tobacco: Never Tobacco Cessation:Counseling Given: Not Answered Comments:Smoking History Packs/day: 1 Packs Alcohol Use Standard Drinks/Week Comments Yes 0 (1 standard drink = 0.6 oz pur e alcohol) AUDIT-C Answer Date Recorded Q1: How often do you have a drink containing alc ohol? Monthly or less 12/13/2024 Q2: How many drinks containi ng alcohol do you have on a typical day when you are drinking? 1 or 2 12/13/2024 Q3: How often do you have si x or more drinks on one occasion? Never 12/13/2024 PHQ-2 Answer Date Recorded PHQ-2 Total Score (If total score is 3 or more points, staff should administer the PHQ-9) 0 12/28/2024 Personal Safety Answer Date Recorded Have you ever been in or are you currently in a harmful physical or emotional relationship or is someone making you feel afraid or unsafe? 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 Not on file Not on file Not on file Obstetrics History Para Term AB IAB SAB Ectopic Multiple Livin g Live Births 4 4 4 Date Outcome GA Total Labor Labor/2nd/3rd Weight Sex Type Anes PTL Denice A1 A5 Name Clin Term Term Term Term Last Filed Vital Signs Vital Sign Reading Time Taken Comments Blood Pressure 136/84 12/28/2024 8:16 AM IRON MINER Pulse 60 12/28/2024 8:16 AM IRON MINER Temperature 36.1 C (96.9 F) 12/28/2024 8:16 AM IRON MINER Respiratory Rate 16 12/28/2024 8:16 AM IRON MINER Oxygen Saturation 98% 12/28/2024 8:16 AM IRON MINER Inhaled Oxygen Concentration - - Weight 73.5 kg (162 lb) 12/28/2024 8:16 AM IRON MINER Height 162.6 cm (5' 4 ) 12/28/2024 8:16 AM IRON MINER Body Mass Index 27.81 12/28/2024 8:16 AM IRON MINER Plan of Treatment Health Maintenance Due Date Last Done Comments Hepatitis B Screening 1975 Covid-19 Vaccine ( season) 2024 11/15/2021, 01/23/2021 Osteoporosis Screening-Bone Density Scan 08/03/2024 08/03/2022 Breast Cancer Screening-Mammogram 08/09/2025 08/09/2024, 08/03/2022, 05/03/2016, Additional history exists DTaP/Tdap/Td Vaccine (1 - Tdap) 11/20/2025 Postponed from 1968 (Insurance / Financial) Lung Cancer Screening 12/27/2025 12/26/2024, 023 Depression Screening 12/28/2025 12/28/2024, 06/27/2024, 12/28/2023, Additional history exists Fall Risk Assessment 12/28/2025 12/28/2024, 06/27/2023, 12/27/2022, Additional history exists Well Visit 65+ 12/28/2025 12/28/2024, 08/0 05/2023, 06/24/2022 Zoster Vaccine (1 of 2) 12/28/2025 Post poned from 2007 (Insurance / Financial) Colon Cancer Screening-Colonoscopy 01/10/2028 01/10/2018 Hepatitis C Screening Completed 06/24/2022 Pneumococcal vaccine 65+ Completed 06/27/2023, 08/0 02/2022 Influenza Vaccine Completed 08/23/2024, , 08/20/2020, Additional history exists Procedures Procedure Name Priority Date/Time Associated Diagnosis Comments CT LUNG CANCER SCREENING Schedule Routine, Read Routine (OP Routine) 12/26/2024 3:38 PM IRON MINER Personal history of tobacco use EGFR Routine 12/24/2024 9:27 AM IRON MINER Primary hypertension Mixed hyperlipidemia DIFFERENTIAL AUTO Routine 12/24/2024 9:2 7 AM IRON MINER Primary hypertension Mixed hyperlipidemia THYROID FUNCTION CASCADE Routine 12/24/2024 9:27 AM IRON MINER Primary hypertension LIPID PANEL Routine 12/24/2024 9:27 AM IRON MINER Mixed hyperlipidemia COMPREHENSIVE METABOLIC PANEL Routine 12/24/2024 9:27 AM IRON MINER Primary hypertension Mixed hyperlipidemia CBC WITH AUTO DIFFERENTIAL Routine 12/24/2024 9:27 AM IRON MINER Primary hypertension Mixed hyperlipidemia RELEASE TRIGGER FINGER 12/13/2024 8:29 AM IRON MINER Trigger middle finger of right hand Trigger ring finger of right hand Case Notes RT LONG AND RING A1 WALT RELEASE *LOCAL* XR HAND RIGHT 3 OR MORE VIEWS Schedule Routine, Read Routine (OP Routine) 12/07/2024 7:42 AM IRON MINER Right hand pain SCREENING MAMMOGRAM BILATERAL W SAMANTHA Schedule Routine, Read Routine (OP Routine) 08/09/2024 3:36 PM CDT Screening mammogram for breast cancer DEXA AXIAL SKELETON BONE DENSITY 1 OR MORE SITES Schedule Routine, Read Routine (OP Routine) 08/03/2022 1:11 PM CDT Screening for osteoporosis HEPATITIS C ANTIBODY Routine 06/24/2022 9:19 AM CDT Need for hepatitis C screening test COLONOSCOPY Routine 01/10/2018 from Last 3 Months or Most Recently Relevant to Health Maintenance Results * CT Lung Cancer Screening (12/26/2024 3:38 PM IRON MINER) Anatomical Region Laterality Modality Chest N/A Computed Tomogra phy 12/27/2024 8:58 AM IRON MINER Narrative 12/27/2024 9:23 AM IRON MINER EXAM DESCRIPTION: CT LUNG CANCER SCREENING REASON FOR STUDY: Screening CT of the chest in a former smoker with a 49 pack year smoking history. Additional history: None. TECHNIQUE: Low dose CT scan of the chest was performed without intravenous contrast using helical scanning technique. The exam extends from the lung apices through the lung bases. Automatic exposure control was used as a dose optimization technique. NOTE: This study was performed for the specific purposes of lung cancer screening and is not an alternative to diagnostic chest CT. RADIATION DOSE: CT dose index volume (CTDIvol) = 1.57 mGy COMPARISON: CT lung cancer screening 07/19/2023 FINDINGS: SMOKING RELATED LUNG DISEASE: Mild centrilobular pulmonary emphysema. Stable scarring at the lung bases. LUNG NODULES: Few scattered small nodules appear stable, for example 3 mm right apical nodule (axial image 52) and 3 mm left upper lobe nodule (axial image 121). No new pulmonary nodules. CORONARY ARTERY CALCIFICATION: Present. OTHER: Normal heart size. No mediastinal or hilar lymph node enlargement by size criteria. No acute findings in the visualized upper abdomen given low-dose technique. No acute skeletal abnormality. IMPRESSION: Stable small pulmonary nodules. Mild pulmonary emphysema. Lung-RADS category 2: Benign appearance or behavior. Recommendation: Low dose Screening CT of chest in 12 months. THIS IS AN ELECTRONICALLY VERIFIED FINAL REPORT 12/27/2024 9:23 AM - Electronically signed by Lalito Gomez M.D. JR: Report ID: [id number] Reading Location: [place] [address] Procedure Note Lalito Gomez MD - 12/27/2024 EXAM DESCRIPTION: CT LUNG CANCER SCREENING REASON FOR STUDY: Screening CT of the chest in a former smoker with a49 pack year smoking history. Additional history: None. TECHNIQUE: Low dose CT scan of the chest was performed without intravenous contrast using helical scanning technique. The exam extends from the lung apices through the lung bases. Automatic exposure control was used as adose optimization technique. NOTE: This study was performed for the specific purposes of lung cancer screening and is not an alternative to diagnostic chest CT. RADIATION DOSE: CT dose index volume (CTDIvol) = 1.57 mGy COMPARISON: CT lung cancer screening 07/19/2023 FINDINGS: SMOKING RELATED LUNG DISEASE: Mild centrilobular pulmonary emphysema. Stable scarring at the lung bases. LUNG NODULES: Few scattered small nodules appear stable, for example 3mm right apical nodule (axial image 52) and 3 mm left upper lobe nodule(axial image 121). No new pulmonary nodules. CORONARY ARTERY CALCIFICATION: Present. OTHER: Normal heart size. No mediastinal or hilar lymph nodeenlargement by size criteria. No acute findings in the visualized upper abdomen given low-dose technique. No acute skeletal abnormality. IMPRESSION: Stable small pulmonary nodules. Mild pulmonary emphysema. Lung-RADS category 2: Benign appearance or behavior. Recommendation: Low dose Screening CT of chest in 12 months. THIS IS AN ELECTRONICALLY VERIFIED FINAL REPORT 12/27/2024 9:23 AM - Electronically signed by Lalito Gomez M.D. JR: Report ID: [id number] Reading Location: [place] [address] Fly Moore MD IMG CT PROCEDURES Final Res ult * eGFR (12/24/2024 9:27 AM IRON MINER) eGFR 76 >=60 mL/min/1. 73 m2 Comment: Interpretive Data Reference Interval Normal >/= 90 mL/min/1.73m2 Mildly decreased* 60 - 89 mL/min/1.73m2 Mildly to moderately decreased 45 - 59 mL/min/1.73m2 Moderately to severely decreased 30 - 44 mL/min/1.73m2 Severely decreased 15 - 29 mL/min/1.73m2 Kidney Failure < 15 mL/min/1.73m2 *Relative to young adult level Estimated glomerular filtration rate is determined by the 2020 CKD-EPI equation recommended by the National Kidney Foundation (A Unifying Approach to GFR Estimation: Recommendations of the NKF-ASK Task Force on Reassessing the Inclusion of Race in Diagnosing Kidney Disease, JASN 2020). The CKD-EPI equation should not be used for patients with unstable renal function and has not been validated in children and those over 70. Current interpretive data was last reviewed 2021. Blood 12/24/2024 9:27 AM IRON MINER 12/25/2024 12:03 AM IRON MINER Fly Moore MD LAB BLOOD ORDERABLES Final Result [facility] [address] [address] Department [place] [address] * Differential, auto (12/24/2024 9:27 AM IRON MINER) Neutrophil abs 3.4 1.5 - 6.5 K/cumm Imm gran abs 0.0 0.0 - 0.1 K/cumm [facility] Lymphocyte abs 2.4 0.8 - 3.3 K/cumm [facility] Monocyte abs 0.4 0.2 - 0.8 K/cumm [facility] Eosinophil abs 0.1 0.0 - 0.5 K/cumm [facility] Basophil abs 0.0 0.0 - 0.1 K/cumm [facility] Neutrophil pct 52.8 % [facility] Comment: Interpretive Data Percent cell count reference ranges are not reported, since discordance with absolute values may lead to misinterpretation of CBC data. Current Interpretive Data was last revised on 2018. Imm gran pct 0.3 % [facility] Comment: Interpretive Data Percent cell count reference ranges are not reported, since discordance with absolute values may lead to misinterpretation of CBC data. Current Interpretive Data was last revised on 2018. Lymphocyte pct 38.0 % [facility] Comment: Interpretive Data Percent cell count reference ranges are not reported, since discordance with absolute values may lead to misinterpretation of CBC data. Current Interpretive Data was last revised on 2018. Monocyte pct 6.1 % [facility] Comment: Interpretive Data Percent cell count reference ranges are not reported, since discordance with absolute values may lead to misinterpretation of CBC data. Current Interpretive Data was last revised on 2018. Eosinophil pct 2.2 % [facility] Comment: Interpretive Data Percent cell count reference ranges are not reported, since discordance with absolute values may lead to misinterpretation of CBC data. Current Interpretive Data was last revised on 2018. Basophil pct 0.6 % [facility] Comment: Interpretive Data Percent cell count reference ranges are not reported, since discordance with absolute values may lead to misinterpretation of CBC data. Current Interpretive Data was last revised on 2018. Blood 12/24/2024 9:27 AM IRON MINER 12/24/2024 10:56 PM IRON MINER Fly Moore MD LAB BLOOD ORDERABLES Final Result Performing Organization Address [facility] Co de Phone Number ELIS PANCHAL [id number] [address] [facility] [place] [address] * Thyroid Function [place] (12/24/2024 9:27 AM IRON MINER) Pathologist [facility] TSH 2.12 0.30 - 4.20 mcIUnit/mL Blood 12/24/2024 9:27 AM IRON MINER 12/24/2024 10:56 PM IRON MINER Fly Moore MD LAB BLOOD ORDERABLES Final Result Performing Organization Address [facility] de Phone Number ELIS PANCHAL [id number] [address] [facility] [place] [address] * (ABNORMAL) CBC with auto differential (12/24/2024 9:27 AM IRON MINER) WBC 6.4 3.8 - 9.9 K/cumm Hgb 13.2 11.9 - 15.5 g/dL [facility] Hct 42.5 35.6 - 45.5 % [facility] Plt 336 150 - 400 K/cumm [facility] MPV 10.5 9.1 - 12.3 fL [facility] RBC 4.58 3.90 - 5.20 M/cumm [facility] MCV 92.8 81.3 - 96.4 fL [facility] MCH 28.8 27.1 - 33.3 pg [facility] MCHC 31.1(L) 32.3 - 35.7 g/dL [facility] RDW CV 12.9 11.1 - 14.9 % [facility] RDW SD 43.8 35.7 - 48.1 fL [facility] NRBC abs 0.00 0.00 - 0.01 K/cumm [facility] Blood 12/24/2024 9:27 AM IRON MINER 12/24/2024 10:56 PM IRON MINER us Fly Moore MD LAB BLOOD ORDERABLES Final Result ELIS PANCHAL [id number] [address] Department [place] [address] * Lipid panel (12/24/2024 9:27 AM IRON MINER) Cholesterol 171 30 - 199 mg/dL Comment: Interpretive Data Ages < or = 19 years Acceptable: <170 mg/dL Borderline high: 170-199 mg/dL High: >or= 200 mg/dL Ages > or = 20 years Desirable: <200 mg/dL Borderline high: 200-239 mg/dL High: >or= 240 mg/dL Literature References: 1. Expert Panel on Integrated Guidelines for Cardiovascular Health and Risk Reduction in Children and Adolescents. Pediatrics 2011;128:S213 2. NCEP Expert Panel. Circulation 2004;110:227 Current Interpretive Data was last revised on 2018. Triglycerides 94 <=149 mg/dL ELIS PANCHAL Comment: Interpretive Data Ages < or = 9 years Acceptable: <75 mg/dL Borderline high: 75-99 mg/dL High: >or= 100 mg/dL Ages 10 to 20 years Acceptable: <90 mg/dL Borderline high: 90-129 mg/dL High: >or= 130 mg/dL Ages > or = 20 years Desirable: <150 mg/dL Borderline high: 150-199 mg/dL High: 200-499 mg/dL Very high: >or= 499 mg/dL Literature References: 1. Expert Panel on Integrated Guidelines for Cardiovascular Health and Risk Reduction in Children and Adolescents. Pediatrics 2011;128:S213 2. NCEP Expert Panel. Circulation 2004;110:227 Current Interpretive Data was last revised on 2018. HDL 71 >=40 mg/dL ELIS PANCHAL Comment: Interpretive Data Ages < or = 19 years Acceptable: >45 mg/dL Borderline low: 40-45 mg/dL Low: <40 mg/dL Ages > or = 20 years Desirable: >or= 60 mg/dL Low: <40 mg/dL Literature References: 1. Expert Panel on Integrated Guidelines for Cardiovascular Health and Risk Reduction in Children and Adolescents. Pediatrics 2011;128:S213 2. NCEP Expert Panel. Circulation 2004;110:227 Current Interpretive Data was last revised on 2018. LDL, calculated 83 <=129 mg/dL ELIS PANCHAL Comment: Interpretive Data Ages < or = 19 years Acceptable: <110 mg/dL Borderline high: 110-129 mg/dL High: >or= 130 mg/dL Ages > or = 20 years Optimal: <100 mg/dL Near optimal: 100-129 mg/dL Borderline high: 130-159 mg/dL High: >160 mg/dL Calculated using the Ricardo LDL-C estimating equation. This equation was implemented on 2024. Prior to this date LDL-C was estimated using the Friedewald equation. Literature References: 1. Expert Panel on Integrated Guidelines for Cardiovascular Health and Risk Reduction in Children and Adolescents. Pediatrics 2011;128:S213 2. NCEP Expert Panel. Circulation 2004;110:227 3. Ricardo Esparza et al. RUFUS Cardiol. 2019March 21;5(5):540-548. doi: 10.1001/jamacardio.2020.0013 Current Interpretive Data was last revised on 2024. Non-HDL Cholesterol 100 mg/dL ELIS PANCHAL Comment: Interpretive Data Ages < or = 19 years Acceptable: <120 mg/dL Borderline high: 120-144 mg/dL High: >145 mg/dL Ages > or = 20 years When triglycerides are >200 mg/dL, Non-HDL cholesterol is a secondary target of therapy with treatment goals that are 30 mg/dL greater than the LDL cholesterol target. Literature References: 1. Expert Panel on Integrated Guidelines for Cardiovascular Health and Risk Reduction in Children and Adolescents. Pediatrics 2011;128:S213 2. NCEP Expert Panel. Circulation 2004;110:227 Current Interpretive Data was last revised on 2018. Chol/HDL ratio 2 ELIS PANCHAL Blood 12/24/2024 9:27 AM IRON MINER 12/24/2024 10:56 PM IRON MINER us Fly Moore MD LAB BLOOD ORDERABLES Final Result ELIS PANCHAL [id number] [address] Department [place] [address] * Comprehensive metabolic panel (12/24/2024 9:27 AM IRON MINER) Sodium 142 135 - 145 mmol/L Potassium, pl 4.4 3.3 - 4.9 mmol/L [facility] Chloride 104 97 - 110 mmol/L [facility] CO2 24 22 - 32 mmol/L [facility] Anion gap 14 2 - 15 mmol/L [facility] BUN 9 6 - 25 mg/dL [facility] Creatinine 0.84 0.60 - 1.10 mg/dL [facility] Glucose 107 70 - 199 mg/dL [facility] Comment: Interpretive Data Fasting glucose >/= 126 mg/dl is diagnostic for diabetes. Fasting is defined as no caloric intake for at least 8 hours. Fasting glucose between 100 mg/dl to 125 mg/dl is diagnostic of prediabetes. In a patient with classic symptoms of hyperglycemia or hyperglycemic crisis, a random glucose >/= 200 mg/dl is diagnostic for diabetes. In the absence of unequivocal hyperglycemia, results should be confirmed by repeat testing. The classification and Diagnosis of Diabetes Diabetes Care 2021; 46: S19-S40. Current interpretive data was last revised 2022. Calcium 9.9 8.5 - 10.3 mg/dL [facility] Bilirubin, total 0.4 0.1 - 1.2 mg/dL [facility] Protein, pl 7.4 6.5 - 8.5 g/dL [facility] Albumin 4.6 3.5 - 5.0 g/dL [facility] Alk phos 90 40 - 130 Units/L [facility] ALT 19 7 - 45 Units/L [facility] AST 30 10 - 45 Units/L [facility] Blood 12/24/2024 9:27 AM IRON MINER 12/24/2024 10:56 PM IRON MINER us Fly Moore MD LAB BLOOD ORDERABLES Final Result [facility]AL [address] Department [place] [address] * XR Hand Right 3 or More Views (12/07/2024 7:42 AM IRON MINER) Anatomical Region Laterality Modality Upper Extremities, Hand Right Computed Radiography 12/07/2024 8:03 AM IRON MINER Narrative 12/07/2024 8:04 AM IRON MINER EXAM DESCRIPTION: XR HAND RIGHT 3 OR MORE VIEWS REASON FOR STUDY: Right hand pain TECHNIQUE: AP lateral and oblique radiographic view(s) of the right hand . 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 A 1 year screening mammogram is recommended. BI-RADS: 2 - Benign. The patient has been or will be contacted. The patient will be entered into a reminder system with a target due date of 1 year for her next mammogram. Electronically signed by: Gayla Booth M.D. Narrative 08/09/2024 4:21 PM CDT EXAMINATION: SCREENING MAMMOGRAM BILATERAL W SAMANTHA ORDERING HEALTHCARE PROVIDER: FLY MOORE HISTORY: Routine screening mammography. COMPARISON: 08/03/2022, 05/06/2016, 03/07/2014 Line TECHNIQUE: CC and MLO views of the bilateral breasts were obtained with digital technique using breast tomosynthesis with C view. Computer aided detection was utilized. FINDINGS: DENSITY: There are scattered fibroglandular elements in the bilateral breasts. BREASTS: There are benign calcifications bilaterally. There are no suspicious masses, suspicious calcifications, or other suspicious findings in either breast. There has been no suspicious interval change. us Fly Moore MD IMG MAMMO PROCEDURES Final Result * Dexa Axial Skeleton Bone Density 1 or 2 Site (08/03/2022 1:11 PM CDT) Anatomical Region Laterality Modality Body N/A Other 08/03/2022 8:21 PM CDT Narrative 08/03/2022 8:22 PM CDT EXAM DESCRIPTION: DEXA AXIAL SKELETON BONE DENSITY 1 OR MORE SITES REASON FOR STUDY: 67 y/o year old F with given history of screening. Postmenopausal Car Pilot/Model: [employer] SL (S/N [id number]) CLINICAL INFORMATION: Current height: 64.3 inches Maximum height: 66 inches Weight: 145 pounds Risk factors: Postmenopausal COMPARISON: None available. FINDINGS: AP LUMBAR SPINE L1-L4: Total BMD is 0.850 g/cm2 T-score is -1.8 LEFT HIP: Total BMD is 0.794 g/cm2 T-score is -1.2 Femoral neck BMD is 0.601 g/cm2 T-score is -2.2 FRAX: 10 year risk for a major osteoporotic fracture is 11 %, 10 year risk for a hip fracture is 1.9 % IMPRESSION: Based on the left femoral neck bone mineral density (T-score -2.2 ) the patient has low bone mass . REFERENCE: Bone mineral density: Normal (T-score above or = -1.0) Low bone mass (T-score between -1.0 and -2.5) replaces the previously used term osteopenia Osteoporosis (T-score = or below -2.5) Medical evaluation for secondary causes of low bone mineral density may be appropriate. FRAX is a World Health Organization validated fracture risk assessment tool that calculates a person's 10 year probability of a major osteoporosis related fracture and hip fracture. According to the National Osteoporosis Foundation guidelines, postmenopausal women and men age 50 or older with low bone mass and a 10 year probability of a major osteoporosis related fracture = or greater than 20% or a 10 year probability of a hip fracture = or greater than 3% should be considered for treatment. For further information, including treatment recommendations, please refer to the 2013 ISCD Official Positions (http://www.iscd.org) and the NOF's Clinician's Guide to Prevention and Treatment of Osteoporosis (http://www.nof.org/professionals/clinical-guidelines) THIS IS AN ELECTRONICALLY VERIFIED FINAL REPORT 08/03/2022 8:22 PM - Electronically signed by Damion Marrero M.D. MF: ODETTE Report ID: [id number] Reading Location: [place] [address] Procedure Note Damion Marrero MD - 08/03/2022 EXAM DESCRIPTION: DEXA AXIAL SKELETON BONE DENSITY 1 OR MORE SITES REASON FOR STUDY: 67 y/o year old F with given history ofscreening. Postmenopausal Car Pilot/Model: [employer] SL (S/N [id number]) CLINICAL INFORMATION: Current height: 64.3 inches Maximum height: 66 inches Weight: 145 pounds Risk factors: Postmenopausal COMPARISON: None available. FINDINGS: AP LUMBAR SPINE L1-L4: Total BMD is 0.850 g/cm2 T-score is -1.8 LEFT HIP: Total BMD is 0.794 g/cm2 T-score is -1.2 Femoral neck BMD is 0.601 g/cm2 T-score is -2.2 FRAX: 10 year risk for a major osteoporotic fracture is 11 %, 10 year risk for ahip fracture is 1.9 % IMPRESSION: Based on the left femoral neck bone mineral density (T-score -2.2 )the patient has low bone mass . REFERENCE: Bone mineral density: Normal (T-score above or = -1.0) Low bone mass (T-score between -1.0 and -2.5) replaces thepreviously used term osteopenia Osteoporosis (T-score = or below -2.5) Medical evaluation for secondary causes of low bone mineral density may be appropriate. FRAX is a World Health Organization validated fracture risk assessmenttool that calculates a person's 10 year probability of a major osteoporosisrelated fracture and hip fracture. According to the National OsteoporosisFoundation guidelines, postmenopausal women and men age 50 or older with low bonemass and a 10 year probability of a major osteoporosis related fracture = or greater than 20% or a 10 year probability of a hip fracture = or greaterthan 3% should be considered for treatment. For further information, including treatment recommendations, please referto the 2013 ISCD Official Positions (http://www.iscd.org) and the NOF's Clinician's Guide to Prevention and Treatment of Osteoporosis (http://www.nof.org/professionals/clinical-guidelines) THIS IS AN ELECTRONICALLY VERIFIED FINAL REPORT 08/03/2022 8:22 PM - Electronically signed by Damion Marrero M.D. MF: ODETTE Report ID: [id number] Reading Location: [place] [address] Fly Moore MD IM DXA PROCEDURES Final Re sult * Hepatitis C antibody (06/24/2022 9:19 AM CDT) Pathologist [facility] Hep C Ab Nonreactive Nonreactive [facility] Comment: Interpretive Data Nonreactive: Antibodies to HCV not detected. Does NOT exclude the possibility of recent exposure to HCV. Equivocal: Equivocal for HCV antibodies. Supplemental molecular testing will be automatically performed to determine infection status in accordance with current CDC screening recommendations. Reactive: Positive for HCV antibodies. This may represent current or past HCV infection. Supplemental molecular testing will be automatically performed to determine current infection status in accordance with current CDC screening recommendations. Interpretive data was last revised on 2020. Blood 06/24/2022 9:19 AM CDT 06/24/2022 4:53 PM CDT Fly Moore MD LAB MICROBIOLOGY - GENERAL ORDERABLES Final Result Performing Organization Address City/State/[place] [address] [address] Department [place] [address] * Colonoscopy (01/10/2018) Anatomical Region Laterality Modality Other Historical Provider ENDOSCOPY PROCEDURES Angie l Result from Last 3 Months or Most Recently Relevant to Health Maintenance Insurance [facility] MEDICARE [facility] MEDIC[facility] Care Teams Electrical Control Assembler Relationship Specialty Start Date End Date Fly Moore MD [address] [place] [address] PCP - General Family Medicine 06/22/22
--- OUTSIDE RECORDS SUMMARY | 2025-01-28 17:24 | XMS_ITS | Referral Summary ---
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 Name Role Phone Fly Moore MD Primary Care Provider [phone] Encounters Date Type Department Care Team Description 12/31/2024 Patient Message [facility] Primary Care at [address] [phone] Fly Moore MD Dermatology referral 12/28/2024 8:00 AM SUPERVISOR [employer] Office Visit [facility] Primary Care at [address] [phone] Fly Moore MD Encounter for Medicare annual wellness exam (Primary Dx); Vitamin D insufficiency; Primary hypertension; Mixed hyperlipidemia; Screening for osteoporosis; Seasonal allergies; Asymptomatic menopausal state; Screening exam for skin cancer 12/26/2024 3:17 PM SUPERVISOR [employer] - 12/26/2024 11:59 PM SUPERVISOR [employer]CR[employer] Hospital Encounter [facility] [address] [place] [address] Personal history of tobacco use Discharge Disposition: Discharge to home or self care 12/26/2024 8:15 AM SUPERVISOR [employer] Office Visit [facility] Medical [facility] Hand Surgery [address] [facility] [address] [place] [phone] Delmy Harrison, MARRIAGE AND FAMILY SOCIAL WORKER Trigger middle finger of right hand (Primary Dx); Trigger finger, right middle finger 12/24/2024 9:27 AM SUPERVIS[employer] - 12/24/2024 11:59 PM SUPERVISOR [employer] Hospital Encounter [address] [address] Primary hypertension; Mixed hyperlipidemia Discharge Disposition: Discharge to home or self care 12/24/2024 9:30 AM SUPERVISOR CONCR[employer]ANT Lab [facility] Outpatient Lab at [address] [phone] Mixed hyperlipidemia (Primary Dx) 12/21/2024 Telephone [facility] [address] [place] [address] Ines Nunn RN 12/13/2024 9:30 AM SUPERVISOR [employer] - 12/13/2024 10:00 AM SUPERVISOR [employer]CR[employer]ANT Surgery [facility] OR [address] [place] [address] Casa New MD RIGHT LONG AND RING A1 WALT RELEASE 12/13/2024 7:08 AM SUPERVISOR [employer] - 12/13/2024 9:50 AM SUPERVISOR [employer]CR[employer]ANT Hospital Encounter [facility] OR [address] [place] [address] Casa New MD Trigger middle finger of right hand [M65.331] (Primary Dx); Trigger ring finger of right hand [M65.341] Discharge Disposition: Discharge to home or self care 12/07/2024 7:38 AM SUPERVISOR [employer]CR[employer] - 12/07/2024 11:59 PM SUPERVISOR [employer]CR[employer] Hospital Encounter [facility] 1 DIAG IMG [address] [place] [phone] Right hand pain Discharge Disposition: Discharge to home or self care 12/07/2024 7:45 AM SUPERVISOR [employer] Office Visit [facility] Medical [facility] Hand Surgery [address] [place] [phone] Casa New MD Right hand pain (Primary Dx); Trigger finger, right middle finger; Trigger middle finger of right hand; Trigger ring finger of right hand from Last 3 Months Allergies Active Allergy Reactions Criticality Noted Date [...] 06/27/2023 Assessment & Plan (12/28/2023 10:08 AM SUPERVISOR [employer]CR[employer]): Blood Pressure Follow-up: Lifestyle modifications education provided on sodium reduction, increase physical activity, reduce alcohol consumption, and weight reduction. Awaiting labs Mixed hyperlipidemia 06/27/2023 Assessment & Plan (12/28/2023 10:08 AM SUPERVISOR [employer]CR[employer]ANT): Awaiting lipid panel Vitamin D insufficiency 06/27/2023 Family history of colon cancer in mother 022 Overview (11/01/2022): Added automatically from request for surgery [id number] Personal history of colonic polyps 11/01/2022 Overview (11/01/2022): Added automatically from request for surgery [id number] Encounter for Medicare annual wellness exam 03/2022 Assessment & Plan (12/28/2024 8:39 AM SUPERVISOR [employer]CR[employer]): A(n) yearly Medicare Annual Wellness Visit has [...] She is in need of Covid-19 (booster). Immunizations Immunization Administration Dates Next Due Influenza, Quadrivalent, Diana l Culture-based MDCK, Preservative Free, Antibiotic Free, Intramuscular 08/20/2020 Influenza, Quadrivalent, Hig h Dose, Preservative Free, Intrr 10/05/2022 Influenza, Quadrivalent, Spl it, Preservative Free, Intramuscular 08/20/2019,08/09/2018,09/19/2017 Influenza, Trivalent, High D ose, Split, Preservative Free, Intramuscular 08/23/2024 Influenza, Unspecified 12/28/2023(Deferr ed: Patient Refused),11/21/2022(Deferred: Patient Refused),10/05/2022(Deferred: Other) Pneumococcal Conjugate PCV 13 06/24/2022 Pneumococcal Conjugate Pcv20 06/27/2023 Social History Tobacco Use Types Packs/Day Years [...] on file Legal Sex Female 3:26 AM SUPERVISOR [employer] Gender Identity Female 06/24/2022 8:12 AM CDT Sexual Orientation Straight 08/07/2024 12 :21 PM CDT 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 Not on file Not on file Last Filed Vital Signs Vital Sign Reading Time Taken Comments Blood Pressure 136/84 12/28/2024 8:16 AM SUPERVIS[employer] Pulse 60 12/28/2024 8:16 AM [employer] Temperature 36.1 C (96.9 F) 12/28/2024 8:16 AM SUPER[employer]OR [employer] Respiratory Rate 16 12/28/2024 8:16 AM [employer]PERVISOR [employer] Oxygen Saturation 98% 12/28/2024 8:16 AM SUPER[employer]OR [employer] Inhaled Oxygen Concentration - - Weight 73.5 kg (162 lb) 12/28/2024 8:16 AM SUPER[employer] Height 162.6 cm (5' 4 ) 12/28/2024 8:16 AM [employer] Body Mass Index 27.81 12/28/2024 8:16 AM SUPERVISOR [employer] Plan of Treatment Not on file Procedures Procedure Name Priority Date/Time Associated Diagnosis Comments CT LUNG CANCER SCREENING Schedule Routine, Read Routine (OP Routine) 12/26/2024 3:38 PM [employer] Personal history of tobacco use EGFR Routine 12/24/2024 9:27 AM SUPERVISOR [employer] Primary hypertension Mixed hyperlipidemia DIFFERENTIAL AUTO Routine 12/24/2024 9:2 7 AM [employer]PER[employer] Primary hypertension Mixed hyperlipidemia THYROID FUNCTION CASCADE Routine 12/24/2024 9:27 AM SUPER[employer]OR [employer] Primary hypertension LIPID PANEL Routine 12/24/2024 9:27 AM SUPERVISOR [employer] Mixed hyperlipidemia COMPREHENSIVE METABOLIC PANEL Routine 12/24/2024 9:27 AM SUPER[employer]OR [employer] Primary hypertension Mixed hyperlipidemia CBC WITH AUTO DIFFERENTIAL Routine 12/24/2024 9:27 AM SUPERVISOR [employer] Primary hypertension Mixed hyperlipidemia RELEASE TRIGGER FINGER 12/13/2024 8:29 AM SUPERVISOR [employer] Trigger middle finger of right hand Trigger ring finger of right hand Case Notes RT LONG AND RING A1 WALT RELEASE *LOCAL* XR HAND RIGHT 3 OR MORE VIEWS Schedule Routine, Read Routine (OP Routine) 12/07/2024 7:42 AM SUPERVISOR [employer] Right hand pain SCREENING MAMMOGRAM BILATERAL W [...] CT Lung Cancer Screening (12/26/2024 3:38 PM SUPERVISOR [employer]) Anatomical Region Laterality Modality Chest N/A Computed Tomogra phy 12/27/2024 8:58 AM SUPERVISOR [employer] Narrative 12/27/2024 9:23 AM SUPERVISOR [employer] EXAM DESCRIPTION: CT LUNG CANCER SCREENING REASON [...] by Lalito Gomez M.D. JR: Report ID: [id number] Reading Location: [id number] Procedure Note Lalito Gomez MD - 12/27/2024 [...] by Lalito Gomez M.D. JR: Report ID: [id number] Reading Location: [place] [address] Fly Moore MD IMG CT PROCEDURES Final Res ult * eGFR (12/24/2024 9:27 AM SUPERVISOR [employer]) eGFR 76 >=60 mL/min/1. 73 m2 Comment: [...] last reviewed 2021. Blood 12/24/2024 9:27 AM SUPERVISOR [employer] 12/25/2024 12:03 AM SUPERVISOR [employer] Fly Moore MD LAB BLOOD ORDERABLES Final Result [facility] [address] [address] Department [place] [address] * Differential, auto (12/24/2024 9:27 AM SUPERVISOR [employer]) Neutrophil abs 3.4 1.5 - 6.5 K/cumm Imm gran abs 0.0 0.0 - 0.1 K/cumm [facility] Lymphocyte abs 2.4 0.8 - 3.3 K/cumm [facility] Monocyte abs 0.4 0.2 - 0.8 K/cumm [facility] Eosinophil abs 0.1 0.0 - 0.5 K/cumm [facility] Basophil abs 0.0 0.0 - 0.1 K/cumm [facility] Neutrophil pct 52.8 % [facility] Comment: Interpretive Data Percent cell count reference ranges are not reported, since discordance with absolute values may lead to misinterpretation of CBC data. Current Interpretive Data was last revised on 2018. Imm gran pct 0.3 % [facility] Comment: Interpretive Data Percent cell count reference ranges are not reported, since discordance with absolute values may lead to misinterpretation of CBC data. Current Interpretive Data was last revised on 2018. Lymphocyte pct 38.0 % [facility] Comment: Interpretive Data Percent cell count reference ranges are not reported, since discordance with absolute values may lead to misinterpretation of CBC data. Current Interpretive Data was last revised on 2018. Monocyte pct 6.1 % [facility] Comment: Interpretive Data Percent cell count reference ranges are not reported, since discordance with absolute values may lead to misinterpretation of CBC data. Current Interpretive Data was last revised on 2018. Eosinophil pct 2.2 % [facility] Comment: Interpretive Data Percent cell count reference ranges are not reported, since discordance with absolute values may lead to misinterpretation of CBC data. Current Interpretive Data was last revised on 2018. Basophil pct 0.6 % [facility] Comment: Interpretive Data Percent cell count reference ranges are not reported, since discordance with absolute values may lead to misinterpretation of CBC data. Current Interpretive Data was last revised on 2018. Blood 12/24/2024 9:27 AM SUPERVISOR [employer] 12/24/2024 10:56 PM SUPER[employer]OR [employer] Fly Moore MD LAB BLOOD ORDERABLES Final Result Performing Organization Address [facility] Co de Phone Number [facility] [address] [address] [facility] [place] [address] * Thyroid Function [place] (12/24/2024 9:27 AM SUPERVISOR [employer]) Pathologist [facility] TSH 2.12 0.30 - 4.20 mcIUnit/mL Blood 12/24/2024 9:27 AM SUPERVISOR [employer] 12/24/2024 10:56 PM SUPERVISOR [employer] Fly Moore MD LAB BLOOD ORDERABLES Final Result Performing Organization Address [facility] de Phone Number [facility] [address] [place] [address] * (ABNORMAL) CBC with auto differential (12/24/2024 9:27 AM SUPERVISOR [employer]CR[employer]) Pathologist [facility] WBC 6.4 3.8 - 9.9 K/cumm Hgb 13.2 11.9 - 15.5 g/dL [facility] Hct 42.5 35.6 - 45.5 % [facility] Plt 336 150 - 400 K/cumm [facility] MPV 10.5 9.1 - 12.3 fL [facility] RBC 4.58 3.90 - 5.20 M/cumm [facility] MCV 92.8 81.3 - 96.4 fL [facility] MCH 28.8 27.1 - 33.3 pg [facility] MCHC 31.1(L) 32.3 - 35.7 g/dL [facility] RDW CV 12.9 11.1 - 14.9 % [facility] RDW SD 43.8 35.7 - 48.1 fL [facility] NRBC abs 0.00 0.00 - 0.01 K/cumm [facility] Blood 12/24/2024 9:27 AM SUPERVISOR [employer] 12/24/2024 10:56 PM SUPERVISOR [employer]CR[employer] us Fly Moore MD LAB BLOOD ORDERABLES Final Result [facility] [address] [facility] Department [place] [address] * Lipid panel (12/24/2024 9:27 AM SUPERVISOR [employer]) Cholesterol 171 30 - 199 mg/dL Comment: [...] 2 [facility]IS PANCHAL Blood 12/24/2024 9:27 AM SUPERVISOR [employer] 12/24/2024 10:56 PM SUPER[employer] us Fly Moore MD LAB BLOOD ORDERABLES Final Result [facility] [address] [address] Department [place] [address] * Comprehensive metabolic panel (12/24/2024 9:27 AM SUPERVISOR [employer]) Sodium 142 135 - 145 mmol/L Potassium, [...] Units/L [facility] Blood 12/24/2024 9:27 AM SUPERVISOR [employer] 12/24/2024 10:56 PM SUPERVISOR [employer] us Fly Moore MD LAB BLOOD ORDERABLES Final Result [facility] [address] [address] Department [place] [address] * XR Hand Right 3 or More Views (12/07/2024 7:42 AM SUPERVISOR [employer]) Anatomical Region Laterality Modality Upper Extremities, Hand Right Computed Radiography 12/07/2024 8:03 AM SUPERVISOR [employer] Narrative 12/07/2024 8:04 AM SUPERVISOR [employer] EXAM DESCRIPTION: XR HAND RIGHT 3 OR [...] by Casa New TL: TL Report ID: [id number] Reading Location: [place] [address] Procedure Note Casa New MD - 12/07/2024 [...] by Casa New TL: TL Report ID: [id number] Reading Location: [place] [address] Casa New MD IMG XR PROCEDURES Final [...] F with given history of screening. Postmenopausal Hat Forming Machine Feeder/Model: [employer] SL (S/N [id number]) CLINICAL INFORMATION: Current height: 64.3 inches Maximum [...] Damion Marrero M.D. MF: ODETTE Report ID: [id number] Reading Location: [place] [address] Procedure Note Damion Marrero MD - 08/03/2022 EXAM DESCRIPTION: DEXA AXIAL SKELETON BONE DENSITY 1 OR MORE SITES REASON FOR STUDY: 67 y/o year old F with given history ofscreening. Postmenopausal Hat Forming Machine Feeder/Model: [employer] (S/N [id number]) CLINICAL INFORMATION: Current height: 64.3 inches Maximum [...] Damion Marrero M.D. MF: ODETTE Report ID: [id number] Reading Location: [place] [address] Fly Moore MD IM DXA PROCEDURES Final Re sult * Hepatitis C antibody (06/24/2022 9:19 AM CDT) Pathologist [facility] Hep C Ab Nonreactive Nonreactive [facility] PANCHAL Comment: Interpretive Data Nonreactive: Antibodies to HCV [...] Final Result Performing Organization Address City/[place] [address] [address] Department [place] [address] * Colonoscopy (01/10/2018) Anatomical Region Laterality Modality Other Historical Provider ENDOSCOPY PROCEDURES Angie l Result from Last 3 Months or Most Recently Relevant to Health Maintenance Insurance [facility] MEDICARE [facility] Care Teams Diesel Truck Mechanic Relationship Specialty Start Date End Date Fly Moore MD [address] [place] [address] PCP - General Family Medicine 06/22/22
--- NOTE | 2025-01-28 17:29 | ADMGEN ---
This patient, Mary Rojas, was admitted to Medical Room 342-01. Patient/family oriented to hospital policies and general routines including ID bracelet, bed and alarms, visiting hours, pain management, procedures, bathroom and other care routines, personal items, smoking policy, room service/diet, and visiting hours. Information on how to activate the Rapid Response Team has been discussed. Patient/Family are encouraged to report perceived risks to care and to ask questions if they do not understand what they are told or what they should do.
--- OUTSIDE RECORDS SUMMARY | 2025-01-28 18:31 | XMS_ITS | Referral Summary ---
Author Organization [address] Address [address] [place] [phone] Care Team Providers Care Bilingual Secretary Name Role Phone Fly Moore MD Primary Care Provider [phone] Encounters Date Type Department Care Team Description 12/31/2024 Patient Message [facility] Primary Care at [address] [address] Fly Moore MD Dermatology referral 12/28/2024 8:00 AM SIEBEL SOLUTION ARCHITECT Office Visit [facility] Primary Care at [address] [address] Fly Moore MD Encounter for Medicare annual wellness exam (Primary Dx); Vitamin D insufficiency; Primary hypertension; Mixed hyperlipidemia; Screening for osteoporosis; Seasonal allergies; Asymptomatic menopausal state; Screening exam for skin cancer 12/26/2024 3:17 PM SIEBEL SOLUTION ARCHITECT - 12/26/2024 11:59 PM SIEBEL SOLUTION ARCHITECT Hospital Encounter [facility] [address] [place] [address] Personal history of tobacco use Discharge Disposition: Discharge to home or self care 12/26/2024 8:15 AM SIEBEL SOLUTION ARCHITECT Office Visit [facility] Medical [facility] Hand Surgery [address] [facility] [address] [place] [phone] 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 Harrison, 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 Trigger middle finger of right hand (Primary Dx); Trigger finger, right middle finger 12/24/2024 9:27 AM SIEBEL SOLUTION ARCHITECT - 12/24/2024 11:59 PM SIEBEL SOLUTION ARCHITECT Hospital Encounter [address] [address] Primary hypertension; Mixed hyperlipidemia Discharge Disposition: Discharge to home or self care 12/24/2024 9:30 AM SIEBEL SOLUTION ARCHITECT Lab [facility] Medical Group Outpatient Lab at [address] [address] Mixed hyperlipidemia (Primary Dx) 12/21/2024 Telephone [facility] 1 [place] [address] Ines Nunn RN 12/13/2024 9:30 AM SIEBEL SOLUTION ARCHITECT - 12/13/2024 10:00 AM SIEBEL SOLUTION ARCHITECT Surgery [facility] OR [address] [place] [phone] Casa New MD RIGHT LONG AND RING A1 WALT RELEASE 12/13/2024 7:08 AM SIEBEL SOLUTION ARCHITECT - 12/13/2024 9:50 AM SIEBEL SOLUTION ARCHITECT Hospital Encounter [facility] OR [address] [place] [address] Casa New MD Trigger middle finger of right hand [M65.331] (Primary Dx); Trigger ring finger of right hand [M65.341] Discharge Disposition: Discharge to home or self care 12/07/2024 7:38 AM SIEBEL SOLUTION ARCHITECT - 12/07/2024 11:59 PM SIEBEL SOLUTION ARCHITECT Hospital Encounter [facility] 1 DIAG IMG [address] [place] [address] Right hand pain Discharge Disposition: Discharge to home or self care 12/07/2024 7:45 AM SIEBEL SOLUTION ARCHITECT Office Visit [facility] Medical Group Hand Surgery [address] [place] [phone] Casa New MD Right hand pain (Primary [...] 06/27/2023 Assessment & Plan (12/28/2023 10:08 AM SIEBEL SOLUTION ARCHITECT): Blood Pressure Follow-up: Lifestyle modifications education provided on sodium reduction, increase physical activity, reduce alcohol consumption, and weight reduction. Awaiting labs Mixed hyperlipidemia 06/27/2023 Assessment & Plan (12/28/2023 10:08 AM SIEBEL SOLUTION ARCHITECT): Awaiting lipid panel Vitamin D insufficiency 06/27/2023 Family history of colon cancer in mother 022 Overview (11/01/2022): Added automatically from request for surgery [id number] Personal history of colonic polyps 11/01/2022 Overview (11/01/2022): Added automatically from request for surgery [id number] Encounter for Medicare annual wellness exam 03/2022 Assessment & Plan (12/28/2024 8:39 AM SIEBEL SOLUTION ARCHITECT): A(n) yearly Medicare Annual Wellness Visit has [...] on file Legal Sex Female 3:26 AM SIEBEL SOLUTION ARCHITECT Gender Identity Female 06/24/2022 8:12 AM CDT Sexual Orientation Straight 08/07/2024 12 :21 PM CDT 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 file Not on file Not on file Last Filed Vital Signs Vital Sign Reading Time Taken Comments Blood Pressure 136/84 12/28/2024 8:16 AM SIEBEL SOLUTION ARCHITECT Pulse 60 12/28/2024 8:16 AM SIEBEL SOLUTION ARCHITECT Temperature 36.1 C (96.9 F) 12/28/2024 8:16 AM SIEBEL SOLUTION ARCHITECT Respiratory Rate 16 12/28/2024 8:16 AM SIEBEL SOLUTION ARCHITECT Oxygen Saturation 98% 12/28/2024 8:16 AM SIEBEL SOLUTION ARCHITECT Inhaled Oxygen Concentration - - Weight 73.5 kg (162 lb) 12/28/2024 8:16 AM SIEBEL SOLUTION ARCHITECT Height 162.6 cm (5' 4 ) 12/28/2024 8:16 AM SIEBEL SOLUTION ARCHITECT Body Mass Index 27.81 12/28/2024 8:16 AM SIEBEL SOLUTION ARCHITECT Plan of Treatment Not on file Procedures Procedure Name Priority Date/Time Associated Diagnosis Comments CT LUNG CANCER SCREENING Schedule Routine, Read Routine (OP Routine) 12/26/2024 3:38 PM SIEBEL SOLUTION ARCHITECT Personal history of tobacco use EGFR Routine 12/24/2024 9:27 AM SIEBEL SOLUTION ARCHITECT Primary hypertension Mixed hyperlipidemia DIFFERENTIAL AUTO Routine 12/24/2024 9:2 7 AM SIEBEL SOLUTION ARCHITECT Primary hypertension Mixed hyperlipidemia THYROID FUNCTION CASCADE Routine 12/24/2024 9:27 AM SIEBEL SOLUTION ARCHITECT Primary hypertension LIPID PANEL Routine 12/24/2024 9:27 AM SIEBEL SOLUTION ARCHITECT Mixed hyperlipidemia COMPREHENSIVE METABOLIC PANEL Routine 12/24/2024 9:27 AM SIEBEL SOLUTION ARCHITECT Primary hypertension Mixed hyperlipidemia CBC WITH AUTO DIFFERENTIAL Routine 12/24/2024 9:27 AM SIEBEL SOLUTION ARCHITECT Primary hypertension Mixed hyperlipidemia RELEASE TRIGGER FINGER 12/13/2024 8:29 AM SIEBEL SOLUTION ARCHITECT Trigger middle finger of right hand Trigger ring finger of right hand Case Notes RT LONG AND RING A1 WALT RELEASE *LOCAL* XR HAND RIGHT 3 OR MORE VIEWS Schedule Routine, Read Routine (OP Routine) 12/07/2024 7:42 AM SIEBEL SOLUTION ARCHITECT Right hand pain SCREENING MAMMOGRAM BILATERAL W [...] CT Lung Cancer Screening (12/26/2024 3:38 PM SIEBEL SOLUTION ARCHITECT) Anatomical Region Laterality Modality Chest N/A Computed Tomogra phy 12/27/2024 8:58 AM SIEBEL SOLUTION ARCHITECT Narrative 12/27/2024 9:23 AM SIEBEL SOLUTION ARCHITECT EXAM DESCRIPTION: CT LUNG CANCER SCREENING REASON [...] by Lalito Gomez M.D. JR: Report ID: [id number] Reading Location: [id number] Procedure Note Lalito Gomez MD - 12/27/2024 [...] by Lalito Gomez M.D. JR: Report ID: [id number] Reading Location: [place] [address] Fly Moore MD IMG CT PROCEDURES Final Res ult * eGFR (12/24/2024 9:27 AM SIEBEL SOLUTION ARCHITECT) eGFR 76 >=60 mL/min/1. 73 m2 Comment: [...] last reviewed 2021. Blood 12/24/2024 9:27 AM SIEBEL SOLUTION ARCHITECT 12/25/2024 12:03 AM SIEBEL SOLUTION ARCHITECT Fly Moore MD LAB BLOOD ORDERABLES Final Result [facility] [address] Department [place] [address] * Differential, auto (12/24/2024 9:27 AM SIEBEL SOLUTION ARCHITECT) Neutrophil abs 3.4 1.5 - 6.5 K/cumm Imm gran abs 0.0 0.0 - 0.1 K/cumm [facility] Lymphocyte abs 2.4 0.8 - 3.3 K/cumm [facility] Monocyte abs 0.4 0.2 - 0.8 K/cumm [facility] Eosinophil abs 0.1 0.0 - 0.5 K/cumm [facility] Basophil abs 0.0 0.0 - 0.1 K/cumm [facility] Neutrophil pct 52.8 % [facility] Comment: Interpretive Data Percent cell count reference ranges are not reported, since discordance with absolute values may lead to misinterpretation of CBC data. Current Interpretive Data was last revised on 2018. Imm gran pct 0.3 % [facility] Comment: Interpretive Data Percent cell count reference ranges are not reported, since discordance with absolute values may lead to misinterpretation of CBC data. Current Interpretive Data was last revised on 2018. Lymphocyte pct 38.0 % [facility] Comment: Interpretive Data Percent cell count reference ranges are not reported, since discordance with absolute values may lead to misinterpretation of CBC data. Current Interpretive Data was last revised on 2018. Monocyte pct 6.1 % [facility] Comment: Interpretive Data Percent cell count reference ranges are not reported, since discordance with absolute values may lead to misinterpretation of CBC data. Current Interpretive Data was last revised on 2018. Eosinophil pct 2.2 % [facility] Comment: Interpretive Data Percent cell count reference ranges are not reported, since discordance with absolute values may lead to misinterpretation of CBC data. Current Interpretive Data was last revised on 2018. Basophil pct 0.6 % [facility] Comment: Interpretive Data Percent cell count reference ranges are not reported, since discordance with absolute values may lead to misinterpretation of CBC data. Current Interpretive Data was last revised on 2018. Blood 12/24/2024 9:27 AM SIEBEL SOLUTION ARCHITECT 12/24/2024 10:56 PM SIEBEL SOLUTION ARCHITECT Fly Moore MD LAB BLOOD ORDERABLES Final Result Performing Organization Address [facility] Co de Phone Number ELIS PANCHAL [address] [facility] [place] [address] * Thyroid Function Isabela (12/24/2024 9:27 AM SIEBEL SOLUTION ARCHITECT) Pathologist [facility] TSH 2.12 0.30 - 4.20 mcIUnit/mL Blood 12/24/2024 9:27 AM SIEBEL SOLUTION ARCHITECT 12/24/2024 10:56 PM SIEBEL SOLUTION ARCHITECT Fly Moore MD LAB BLOOD ORDERABLES Final Result Performing Organization Address [facility] de Phone Number EL[place] PANCHAL [address] [place] [address] * (ABNORMAL) CBC with auto differential (12/24/2024 9:27 AM SIEBEL SOLUTION ARCHITECT) Pathologist [facility] WBC 6.4 3.8 - 9.9 K/cumm Hgb 13.2 11.9 - 15.5 g/dL [facility] Hct 42.5 35.6 - 45.5 % [facility] Plt 336 150 - 400 K/cumm [facility] MPV 10.5 9.1 - 12.3 fL [facility]NER RBC 4.58 3.90 - 5.20 M/cumm [facility] MCV 92.8 81.3 - 96.4 fL [facility] MCH 28.8 27.1 - 33.3 pg [facility] MCHC 31.1(L) 32.3 - 35.7 g/dL [facility] RDW CV 12.9 11.1 - 14.9 % [facility] RDW SD 43.8 35.7 - 48.1 fL [facility] NRBC abs 0.00 0.00 - 0.01 K/cumm [facility] Blood 12/24/2024 9:27 AM SIEBEL SOLUTION ARCHITECT 12/24/2024 10:56 PM SIEBEL SOLUTION ARCHITECT us Fly Moore MD LAB BLOOD ORDERABLES Final Result EL[place] PAN[place]AL [address] [facility] Department [place] [address] * Lipid panel (12/24/2024 9:27 AM SIEBEL SOLUTION ARCHITECT) Cholesterol 171 30 - 199 mg/dL Comment: [...] 2 ELIS PANCHAL Blood 12/24/2024 9:27 AM SIEBEL SOLUTION ARCHITECT 12/24/2024 10:56 PM SIEBEL SOLUTION ARCHITECT us Fly Moore MD LAB BLOOD ORDERABLES Final Result [facility] [address] [address] Department [place] [address] * Comprehensive metabolic panel (12/24/2024 9:27 AM SIEBEL SOLUTION ARCHITECT) Sodium 142 135 - 145 mmol/L Potassium, [...] Units/L [facility] Blood 12/24/2024 9:27 AM SIEBEL SOLUTION ARCHITECT 12/24/2024 10:56 PM SIEBEL SOLUTION ARCHITECT us Fly Moore MD LAB BLOOD ORDERABLES Final Result [facility] [address] Department [place] [address] * XR Hand Right 3 or More Views (12/07/2024 7:42 AM SIEBEL SOLUTION ARCHITECT) Anatomical Region Laterality Modality Upper Extremities, Hand Right Computed Radiography 12/07/2024 8:03 AM SIEBEL SOLUTION ARCHITECT Narrative 12/07/2024 8:04 AM SIEBEL SOLUTION ARCHITECT EXAM DESCRIPTION: XR HAND RIGHT 3 OR [...] by Casa New TL: TL Report ID: [id number] Reading Location: [place] [address] Procedure Note Casa New MD - 12/07/2024 [...] by Casa New TL: TL Report ID: [id number] Reading Location: [place] [address] Casa New MD IMG XR PROCEDURES Final [...] F with given history of screening. Postmenopausal Electric Organ Checker/Model: Pocket Gems Discovery SL (S/N [id number]) CLINICAL INFORMATION: Current height: 64.3 inches Maximum [...] Damion Marrero M.D. MF: ODETTE Report ID: [id number] Reading Location: [place] [address] Procedure Note Damion Marrero MD - 08/03/2022 EXAM DESCRIPTION: DEXA AXIAL SKELETON BONE DENSITY 1 OR MORE SITES REASON FOR STUDY: 67 y/o year old F with given history ofscreening. Postmenopausal Electric Organ Checker/Model: Accela (S/N [id number]) CLINICAL INFORMATION: Current height: 64.3 inches Maximum [...] Damion Marrero M.D. MF: ODETTE Report ID: [id number] Reading Location: [place] [address] Fly Moore MD IM DXA PROCEDURES Final Re sult * Hepatitis C antibody (06/24/2022 9:19 AM CDT) Pathologist [facility] Hep C Ab Nonreactive Nonreactive ELIS PANCHAL [...] Final Result Performing Organization Address City/[place] [address] [address] Department [place] [address] * Colonoscopy (01/10/2018) Anatomical Region Laterality Modality Other Historical Provider ENDOSCOPY PROCEDURES Angie l Result from Last 3 Months or Most Recently Relevant to Health Maintenance Insurance [facility] MEDICARE [facility] MEDICARE [facility] Care Teams Bilingual Secretary Relationship Specialty Start Date End Date Fly Moore MD [address] [place] [address] PCP - General Family Medicine 06/22/22
--- OUTSIDE RECORDS SUMMARY | 2025-01-28 18:31 | XMS_ITS | Continuity of Care Document ---
Author Organization [facility] Address [address] [place] [address] Phone Care Team Providers Care Duty Manager Name Role Phone Ciaran Guzman MD Unavailable [...] Diagnoses Date Provider Providers Copied on Encounter zanda, [address], [place], [place], [address] , tel: [phone] [place] No Information 7 Megan Wagoner. [address] [address], [place], [place], [address] , [place]. tel: [phone] zanda, [address], [place], [place], [address] , [place] tel: [phone] [facility] Abnormal CT scan, kidney 6 Megan Wagoner. [address], [facility] [address], [place], [place], [address] , . tel: [phone] zanda, [address], [place], [place], [address] , tel: [phone] [place] Epigastric abdominal painLower abdominal painTobacco useAbnormal CT scan, kidneyFamily disruption due to divorce or legal separation 6 Woodrowcody Edwards. [address], [address], [place], [place], [address] . tel: [phone] Referring Provider: Ciaran Guzman, [address] [place] [address] [address], [place], [address] . tel:[phone] [facility], [address], [place], [place], [address] , [place] tel: [phone] [facility] Tobacco AbuseExternal hemorrhoidMigraineDi verticulitis of sigmoid colonCyst of right kidneySPECIAL SCREENING FOR MALIGNANT NEOPLASMS, OTHER SITES 4 Pricila Grace. [address], [address], [place], [place], [address] . tel: [phone] Referring Provider: Ciaran Guzman, [address] [place] [address] [address], [place], [address] . tel:[phone] [facility], [address], [place], [place], [address] , [place] tel: [phone] [place] No Information Jan- 3 Pricila Edwards. [facility] [address], [address], [place], [place], [address] . tel: [phone] zanda, [address], [place], [place], [address] , [place] tel: [phone] [place] Allergic rhinitis, cause unspecifiedOther and unspecified hyperlipidemiaOsteop orosis, unspecifiedDisorder of bone and cartilage, unspecifiedMigraine, unspecified without mention of intractable migraineEnlargement of lymph nodesTobacco useVitamin d deficiencyFamily history of breast cancerOther and unspecified hyperlipidemiaRoutin e gynecological examinationSPECIAL SCREENING FOR MALIGNANT NEOPLASMS, OTHER SITES Jan- 3 Pricila Edwards. [address], [address], [place], [place], [address] . tel: [phone] Referring Provider: Ciaran Guzman [address] [place] [address] [address], [place], [address] . tel:[phone] [facility], [address], [place], [place], [address] , [place] tel: [phone] [facility] POSTMENOPAUSAL BLEEDING 1 Megan Wagoner. [address], [address], [place], [place], [address] , [place]. tel: [phone] [facility], [address], [place], [place], [address] , [place] tel: [phone] [facility] VITAMIN D DEFICIENCY NOS 1 Pricila Domingon. [address] [place] [address], [address], [place], [place], [address] . tel: [phone] [facility], [address], [place], [place], [address] , [place] tel: [phone] [facility] BONE & CARTILAGE DIS NOSVACCINATION FOR DTP-DTAPROUTINE ADVERTISING REPRESENTATIVE EXAMINATIONSCREEN-EN DOC/NUT/MET NECTOBACCO USE DISORDERELEV BL PRES W/O HYPERTN [address] Megan Jacobsen. [address] [place] [address], [address], [place], [address], [place]. tel: [phone] [facility], [address], [place], [place], [address] , [place] tel: [phone] [facility] MENOPAUSAL DISORDER NECSCREEN MAL NEOP-CERVIXFAMILY HX-BREAST MALIGPURE HYPERCHOLESTEROLEM 1 Pricila Grace. [address] [place] [address], [facility] [address], [place], [place], [address] . tel: [phone] [facility], [address], [place], [place], [address] , [place] tel: [phone] [facility] VRNT MGRN W NTRC MGR NEC 0 Pricila Grace. [address] [place] [address], [address], [place], [place], [address] . tel: [phone] [facility], [address], [place], [place], [address] , [place] tel: [phone] [facility] NONRUPT CEREBRAL ANEURYMHYPERLIPIDEMI A NEC/NOSVISUAL DISCOMFORT 0 Megan Jacobsen. [address], [address], [place], [place], [facility], [place]. tel: [phone] zanda, [address], [place], [place], [address] , [place] tel: [phone] [facility] DERMATITIS NOSSCREEN-DIABETES MELLITUSSCREEN MALIG HGIO-LIGHTECLV-BYUVO WILMA HEART DIS 8 Megan Jacobsen. [address], [address], [place], [place], [facility], [place]. tel: [phone] zanda, [address], [place], [place], [address] , [place] tel: [phone] [facility] ACUTE SINUSITIS NOSAC SUPP OTITIS MEDIA NOS 7 Megan Jacobsen. [address] [place] [address], [facility] [address], [place], [place], [facility], [place]. tel: [phone] zanda, [address], [place], [place], [address] , [place] tel: [phone] [facility] JOINT PAIN-L/LEGENTHESOPAT HY OF HIPCALCIF TENDINITIS SHLDERABN PAP CERVIX HPV NEC 7 Megan Jacobsen. [address] [place] [address], [address], [place], [place], [facility], [place]. tel: [phone] [facility], [address], [place], [place], [address] , [place] tel: [phone] [facility] FAMILY HX-STROKE 7 Ctcody Domingon. [address] [place] [address], [facility] [address], [place], [place], [address] . tel: [phone] zanda, [address], [place], [place], [address] , [place] tel: [phone] [facility] CARBUNCLE NOS 7 Woodrowcody Grace. [address] [place] [address], [facility] [address], [place], [place], [address] . tel: [phone] [facility], [address], [place], [place], [address] , [place] tel: [phone] [facility] FAM HX-DIABETES MELLITUS 7 Woodrowcody Edwards. [address], [address], [place], [place], [address] . tel: [phone] [facility], [address], [place], [place], [address] , [place] tel: [phone] [facility] ROUTINE MEDICAL EXAMOSTEOPOROSIS NOS 5 Megan Delmar. [address], [address], [place], [address], [place]. tel: [phone] [facility], [address], [place], [place], [address] , [place] tel: [phone] [facility] SPRAIN LUMBAR REGION 4 Woodrowcody Edwards. [address] [place] [address], [address], [place], [place], [address] . tel: [phone] [facility], [address], [place], [place], [address] , [place] tel: [phone] [facility] ABN GLANDULAR PAP SMEAR 4 Meganyonathan Jacobsen. [address], [address], [place], [address], [place]. tel: [phone] [facility], [address], [place], [place], [address] , [place] tel: [phone] [facility] SYMPT FEM CLIMACT STATEGYNECOLOGIC EXAMINATION 0 4 Pricila Edwards. [facility] [address], [address], [place], [place], [address] . tel: [phone] [facility], [address], [place], [place], [address] , [place] tel: [phone] [facility] ACUTE CONJUNCTIVITIS NOS 2 4 Pricila Edwards. [address], [place], [place], [address] . tel: [phone] [facility], [address], [place], [place], [address] , [place] tel: [phone] [facility] HEADACHE Feb- 4 Pricila Edwards. [address], [facility] [address], [place], [place], [address] . tel: [phone] [facility], [address], [place], [place], [address] , tel: [phone] [facility] ALLERGIC RHINITIS NOS Feb- 8200 [address] Pricila Edwards. [address] [place] [address], [address] [address], [place], [place], [address] . tel: [phone] [facility], [address], [place], [place], [address] , tel: [phone] [facility] LUMBAGO Sep-0 2200 3 Pricila Edwards. [address] [place] [address], [address] [address], [place], [place], [address] . tel: [phone] [facility], [address], [place], [place], [address] , tel: [phone] [facility] VAGINITIS NOSCANDIDAL VULVOVAGINITISSEBACE OUS CYSTFM HX-ENDO/METAB DIS NECAC SEROUS OTITIS MEDIA 9200 3 Pricila Edwards[address] [place] [address], [address] [address], [place], [place], [address] . tel: [phone] [facility], [address], [place], [place], [address] , tel: [phone] [facility] FAMILY HX-GI MALIGNANCY 2 Pricila Edwards. [address] [place] [address], [place], [place], [address] . tel: [phone] Family History Family Member Type Diagnosis Age At Onset Problem (finding) Family history of cance r of colon Mom, MGM Problem (finding) malignant neoplasm of m doug breast Dad, p uncle, cousin Problem (finding) Cererbral aneur ysm Mother Problem (finding) diabetes melli tus in first degree relative Mother Problem (finding) coronary arterioscleros is MGM Problem (finding) stroke Immunizations Vaccine Date Status Comments 29208 - Tetanus_Diptheria_Pertussis_Tdap administered Source: Source Unspecified Payers Payer name Insurance type Covered green party ID Authoriza tion(s) [facility] CI [id number] Social History Type Description Quantity Date Captured [...]
--- OUTSIDE RECORDS SUMMARY | 2025-01-28 18:31 | XMS_ITS | Clinical Summary ---
Author Organization [facility] Address [address], [facility] [address] [place] [address] Phone Care Team Providers Care Magazine Editor Name Role Phone Fly Moore MD Primary [...] Comments Blood Pressure 118/72 01/10/2018 8:15 AM MANAGER LAN Pulse 74 01/10/2018 8:15 AM MANAGER LAN Temperature 36 C (96.8 F) 01/10/2018 8:15 AM MANAGER LAN Respiratory Rate 20 01/10/2018 8:15 AM MANAGER LAN Oxygen Saturation 96% 01/10/2018 8:15 AM MANAGER LAN Inhaled Oxygen Concentration - - Weight 58.1 kg (128 lb) 01/04/2018 1:00 PM MANAGER LAN Height 162.6 cm (5' 4 ) 01/04/2018 1:00 PM MANAGER LAN Body Mass Index 21.97 01/04/2018 1:00 PM MANAGER LAN Plan of Treatment Health Maintenance Due Date [...] HEALTH PLAN MEDICARE C [employer] Care Teams Magazine Editor Relationship Specialty Start Date End Date Fly Moore MD [address] [place] [address] PCP - General Family Medicine 11/04/22
--- OUTSIDE RECORDS SUMMARY | 2025-01-28 18:31 | XMS_ITS | Clinical Summary ---
Author Organization [address] Address [address] [place] [phone] Care Team Providers Care Instrument Technician Apprentice Name Role Phone Fly Moore MD Primary Care Provider [phone] Allergies Active Allergy Reactions Criticality Noted Date [...] 06/27/2023 Assessment & Plan (12/28/2023 10:08 AM PARTS CLERK): Blood Pressure Follow-up: Lifestyle modifications education provided on sodium reduction, increase physical activity, reduce alcohol consumption, and weight reduction. Awaiting labs Mixed hyperlipidemia 06/27/2023 Assessment & Plan (12/28/2023 10:08 AM PARTS CLERK): Awaiting lipid panel Vitamin D insufficiency 06/27/2023 Family history of colon cancer in mother 022 Overview (11/01/2022): Added automatically from request for surgery [id number] Personal history of colonic polyps 11/01/2022 Overview (11/01/2022): Added automatically from request for surgery [id number] Encounter for Medicare annual wellness exam 03/2022 Assessment & Plan (12/28/2024 8:39 AM PARTS CLERK): A(n) yearly Medicare Annual Wellness Visit has [...] Department Care Team Description 12/31/2024 Patient Message [facility] Primary Care at [address] [phone] Fly Moore MD Dermatology referral 12/28/2024 8:00 AM PARTS CLERK Office Visit [facility] Primary Care at [address] [phone] Fly Moore MD Encounter for Medicare annual wellness exam (Primary Dx); Vitamin D insufficiency; Primary hypertension; Mixed hyperlipidemia; Screening for osteoporosis; Seasonal allergies; Asymptomatic menopausal state; Screening exam for skin cancer 12/26/2024 3:17 PM PARTS CLERK - 12/26/2024 11:59 PM PARTS CLERK Hospital Encounter [address] [address] Personal history of tobacco use Discharge Disposition: Discharge to home or self care 12/26/2024 8:15 AM PARTS CLERK Office Visit [facility] Hand Surgery [address] [facility] [address] [place] [phone] Delmy Harrison, PAT Trigger middle finger of right hand (Primary Dx); Trigger finger, right middle finger 12/24/2024 9:30 AM PARTS CLERK Lab [facility] Outpatient Lab at [address] [phone] Mixed hyperlipidemia (Primary Dx) 12/24/2024 9:27 AM PARTS CLERK - 12/24/2024 11:59 PM PARTS CLERK Hospital Encounter [address] [address] Primary hypertension; Mixed hyperlipidemia Discharge Disposition: Discharge to home or self care 12/21/[address] [address] Ines Nunn RN 12/13/2024 9:30 AM PARTS CLERK - 12/13/2024 10:00 AM PARTS CLERK Surgery [facility] OR [address] [place] [address] Casa New MD RIGHT LONG AND RING A1 WALT RELEASE 12/13/2024 7:08 AM PARTS CLERK - 12/13/2024 9:50 AM PARTS CLERK Hospital Encounter [facility] Main OR [address] [place] [address] Casa New MD Trigger middle finger of right hand [M65.331] (Primary Dx); Trigger ring finger of right hand [M65.341] Discharge Disposition: Discharge to home or self care 12/07/2024 7:45 AM PARTS CLERK Office Visit [facility] Hand Surgery [address] [facility] [address] [place] [phone] Casa New MD Right hand pain (Primary Dx); Trigger finger, right middle finger; Trigger middle finger of right hand; Trigger ring finger of right hand 12/07/2024 7:38 AM PARTS CLERK - 12/07/2024 11:59 PM PARTS CLERK Hospital Encounter 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 Not on file Not on file Obstetrics History Para Term AB IAB SAB Ectopic Multiple Livin g Live Births 4 4 4 Date Outcome GA Total Labor Labor/2nd/3rd Weight Sex Type Anes PTL Denice A1 A5 Name Clin Term Term Term Term Last Filed Vital Signs Vital Sign Reading Time Taken Comments Blood Pressure 136/84 12/28/2024 8:16 AM PARTS CLERK Pulse 60 12/28/2024 8:16 AM PARTS CLERK Temperature 36.1 C (96.9 F) 12/28/2024 8:16 AM PARTS CLERK Respiratory Rate 16 12/28/2024 8:16 AM PARTS CLERK Oxygen Saturation 98% 12/28/2024 8:16 AM PARTS CLERK Inhaled Oxygen Concentration - - Weight 73.5 kg (162 lb) 12/28/2024 8:16 AM PARTS CLERK Height 162.6 cm (5' 4 ) 12/28/2024 8:16 AM PARTS CLERK Body Mass Index 27.81 12/28/2024 8:16 AM PARTS CLERK Plan of Treatment Health Maintenance Due Date [...] Read Routine (OP Routine) 12/26/2024 3:38 PM PARTS CLERK Personal history of tobacco use EGFR Routine 12/24/2024 9:27 AM PARTS CLERK Primary hypertension Mixed hyperlipidemia DIFFERENTIAL AUTO Routine 12/24/2024 9:2 7 AM PARTS CLERK Primary hypertension Mixed hyperlipidemia THYROID FUNCTION CASCADE Routine 12/24/2024 9:27 AM PARTS CLERK Primary hypertension LIPID PANEL Routine 12/24/2024 9:27 AM PARTS CLERK Mixed hyperlipidemia COMPREHENSIVE METABOLIC PANEL Routine 12/24/2024 9:27 AM PARTS CLERK Primary hypertension Mixed hyperlipidemia CBC WITH AUTO DIFFERENTIAL Routine 12/24/2024 9:27 AM PARTS CLERK Primary hypertension Mixed hyperlipidemia RELEASE TRIGGER FINGER 12/13/2024 8:29 AM PARTS CLERK Trigger middle finger of right hand Trigger ring finger of right hand Case Notes RT LONG AND RING A1 WALT RELEASE *LOCAL* XR HAND RIGHT 3 OR MORE VIEWS Schedule Routine, Read Routine (OP Routine) 12/07/2024 7:42 AM PARTS CLERK Right hand pain SCREENING MAMMOGRAM BILATERAL W [...] CT Lung Cancer Screening (12/26/2024 3:38 PM PARTS CLERK) Anatomical Region Laterality Modality Chest N/A Computed Tomogra phy 12/27/2024 8:58 AM PARTS CLERK Narrative 12/27/2024 9:23 AM PARTS CLERK EXAM DESCRIPTION: CT LUNG CANCER SCREENING REASON [...] by Lalito Gomez M.D. JR: Report ID: [id number] Reading Location: [place] [address] Procedure Note Lalito Gomez MD - 12/27/2024 [...] by Lalito Gomez M.D. JR: Report ID: [id number] Reading Location: [place] [address] Fly Moore MD IMG CT PROCEDURES Final Res ult * eGFR (12/24/2024 9:27 AM PARTS CLERK) eGFR 76 >=60 mL/min/1. 73 m2 Comment: [...] last reviewed 2021. Blood 12/24/2024 9:27 AM PARTS CLERK 12/25/2024 12:03 AM PARTS CLERK Fly Moore MD LAB BLOOD ORDERABLES Final Result [facility] [address] [address] Department [place] [address] * Differential, auto (12/24/2024 9:27 AM PARTS CLERK) Neutrophil abs 3.4 1.5 - 6.5 K/cumm Imm gran abs 0.0 0.0 - 0.1 K/cumm [facility] Lymphocyte abs 2.4 0.8 - 3.3 K/cumm [facility] Monocyte abs 0.4 0.2 - 0.8 [facility] Eosinophil abs 0.1 0.0 - 0.5 K/cumm [facility] Basophil abs 0.0 0.0 - 0.1 K/cumm [facility] Neutrophil pct 52.8 % [facility] Comment: Interpretive [...] revised on 2018. Blood 12/24/2024 9:27 AM PARTS CLERK 12/24/2024 10:56 PM PARTS CLERK Fly Moore MD LAB BLOOD ORDERABLES Final Result Performing Organization Address [facility] Co de Phone Number [place]IS PANCHAL [address] [address] [facility] [employer] [place] [address] * Thyroid Function [place] (12/24/2024 9:27 AM PARTS CLERK) Pathologist [facility] TSH 2.12 0.30 - 4.20 mcIUnit/mL Blood 12/24/2024 9:27 AM PARTS CLERK 12/24/2024 10:56 PM PARTS CLERK Fly Moore MD LAB BLOOD ORDERABLES Final Result Performing Organization Address [facility] de Phone Number [place] PANCHAL [address] [address] [facility] [employer] [place] [address] * (ABNORMAL) CBC with auto differential (12/24/2024 9:27 AM PARTS CLERK) WBC 6.4 3.8 - 9.9 K/cumm Hgb [...] K/cumm [facility] Blood 12/24/2024 9:27 AM PARTS CLERK 12/24/2024 10:56 PM PARTS CLERK us Fly Moore MD LAB BLOOD ORDERABLES Final Result [facility] PANCHAL [address] [address] Department [place] [address] * Lipid panel (12/24/2024 9:27 AM PARTS CLERK) Cholesterol 171 30 - 199 mg/dL Comment: [...] 2 [facility]IS PANCHAL Blood 12/24/2024 9:27 AM PARTS CLERK 12/24/2024 10:56 PM PARTS CLERK us Fly Moore MD LAB BLOOD ORDERABLES Final Result [facility] [address] [address] Department [place] [address] * Comprehensive metabolic panel (12/24/2024 9:27 AM PARTS CLERK) Sodium 142 135 - 145 mmol/L Potassium, [...] Units/L [facility] Blood 12/24/2024 9:27 AM PARTS CLERK 12/24/2024 10:56 PM PARTS CLERK us Fly Moore MD LAB BLOOD ORDERABLES Final Result [place] PANCHAL [address] [address] Department [place] [address] * XR Hand Right 3 or More Views (12/07/2024 7:42 AM PARTS CLERK) Anatomical Region Laterality Modality Upper Extremities, Hand Right Computed Radiography 12/07/2024 8:03 AM PARTS CLERK Narrative 12/07/2024 8:04 AM PARTS CLERK EXAM DESCRIPTION: XR HAND RIGHT 3 OR [...] by Casa New TL: TL Report ID: [id number] Reading Location: [place] [address] Procedure Note Casa New MD - 12/07/2024 [...] by Casa New TL: TL Report ID: [id number] Reading Location: [place] [address] Casa New MD IMG XR PROCEDURES Final [...] F with given history of screening. Postmenopausal Contact Lens Flashing Puncher/Model: [employer] SL (S/N [id number]) CLINICAL INFORMATION: Current height: 64.3 inches Maximum [...] Damion Marrero M.D. MF: ODETTE Report ID: [id number] Reading Location: [place] [address] Procedure Note Damion Marrero MD - 08/03/2022 EXAM DESCRIPTION: DEXA AXIAL SKELETON BONE DENSITY 1 OR MORE SITES REASON FOR STUDY: 67 y/o year old F with given history ofscreening. Postmenopausal Contact Lens Flashing Puncher/Model: [employer] SL ([id number]/N [id number]) CLINICAL INFORMATION: Current height: 64.3 inches Maximum [...] Damion Marrero M.D. MF: ODETTE Report ID: [id number] Reading Location: [place] [address] Fly Moore MD IM DXA PROCEDURES Final Re sult * Hepatitis C antibody (06/24/2022 9:19 AM CDT) Pathologist [facility] Hep C Ab Nonreactive Nonreactive ELIS Comment: [...] Final Result Performing Organization Address City/[place] [address] [address] Department [place] [address] * Colonoscopy (01/10/2018) Anatomical Region Laterality Modality Other Historical Provider ENDOSCOPY PROCEDURES Angie l Result from Last 3 Months or Most Recently Relevant to Health Maintenance Insurance [employer] Care Teams Instrument Technician Apprentice Relationship Specialty Start Date End Date Fly Moore MD [address] [place] [address] PCP - General Family Medicine 06/22/22
--- OUTSIDE RECORDS SUMMARY | 2025-01-28 19:15 | XMS_ITS | Clinical Summary ---
Author Organization [facility] Address [address], [facility] [address] [place] [address] Phone Care Team Providers Care Fish Header Name Role Phone Fly Moore MD Primary [...] Comments Blood Pressure 118/72 01/10/2018 8:15 AM FILM MASKER Pulse 74 01/10/2018 8:15 AM FILM MASKER Temperature 36 C (96.8 F) 01/10/2018 8:15 AM FILM MASKER Respiratory Rate 20 01/10/2018 8:15 AM FILM MASKER Oxygen Saturation 96% 01/10/2018 8:15 AM FILM MASKER Inhaled Oxygen Concentration - - Weight 58.1 kg (128 lb) 01/04/2018 1:00 PM FILM MASKER Height 162.6 cm (5' 4 ) 01/04/2018 1:00 PM FILM MASKER Body Mass Index 21.97 01/04/2018 1:00 PM FILM MASKER Plan of Treatment Health Maintenance Due Date [...] HEALTH PLAN MEDICARE C [employer] Care Teams Fish Header Relationship Specialty Start Date End Date Fly Moore MD [address] [place] [address] PCP - General Family Medicine 11/04/22
--- OUTSIDE RECORDS SUMMARY | 2025-01-28 19:15 | XMS_ITS | Referral Summary ---
Author Organization [address] Address [address] [place] [phone] Care Team Providers Care Machine Slat Basket Maker Name Role Phone Fly Moore MD Primary Care Provider [phone] Encounters Date Type Department Care Team Description 12/31/2024 Patient Message [facility] Primary Care at [address] [phone] Fly Moore MD Dermatology referral 12/28/2024 8:00 AM LIFT SUPERVISOR Office Visit [facility] Primary Care at [address] [phone] Fly Moore MD Encounter for Medicare annual wellness exam (Primary Dx); Vitamin D insufficiency; Primary hypertension; Mixed hyperlipidemia; Screening for osteoporosis; Seasonal allergies; Asymptomatic menopausal state; Screening exam for skin cancer 12/26/2024 3:17 PM LIFT SUPERVISOR - 12/26/2024 11:59 PM LIFT SUPERVISOR Hospital Encounter [facility] 1 [place] [address] Personal history of tobacco use Discharge Disposition: Discharge to home or self care 12/26/2024 8:15 AM LIFT SUPERVISOR Office Visit [facility] Hand Surgery [address] [facility] [address] [place] [phone] Delmy Harrison, APPRAISER ART Trigger middle finger of right hand (Primary Dx); Trigger finger, right middle finger 12/24/2024 9:27 AM LIFT SUPERVISOR - 12/24/2024 11:59 PM LIFT SUPERVISOR Hospital Encounter [address] [address] Primary hypertension; Mixed hyperlipidemia Discharge Disposition: Discharge to home or self care 12/24/2024 9:30 AM LIFT SUPERVISOR Lab [facility] Medical Group Outpatient Lab at [address] [phone] Mixed hyperlipidemia (Primary Dx) 12/21/2024 Telephone [facility] 1 [place] [address] Ines Nunn RN 12/13/2024 9:30 AM LIFT SUPERVISOR - 12/13/2024 10:00 AM LIFT SUPERVISOR Surgery [facility] OR [address] [place] [address] Casa New MD RIGHT LONG AND RING A1 WALT RELEASE 12/13/2024 7:08 AM LIFT SUPERVISOR - 12/13/2024 9:50 AM LIFT SUPERVISOR Hospital Encounter [facility] OR [address] [place] [phone] Casa New MD Trigger middle finger of right hand [M65.331] (Primary Dx); Trigger ring finger of right hand [M65.341] Discharge Disposition: Discharge to home or self care 12/07/2024 7:38 AM LIFT SUPERVISOR - 12/07/2024 11:59 PM LIFT SUPERVISOR Hospital Encounter [facility] 1 DIAG IMG [address] [place] [phone] Right hand pain Discharge Disposition: Discharge to home or self care 12/07/2024 7:45 AM LIFT SUPERVISOR Office Visit [facility] Medical Group Hand Surgery [address] [place] [phone] Casa New MD Right hand pain (Primary [...] 06/27/2023 Assessment & Plan (12/28/2023 10:08 AM LIFT SUPERVISOR): Blood Pressure Follow-up: Lifestyle modifications education provided on sodium reduction, increase physical activity, reduce alcohol consumption, and weight reduction. Awaiting labs Mixed hyperlipidemia 06/27/2023 Assessment & Plan (12/28/2023 10:08 AM LIFT SUPERVISOR): Awaiting lipid panel Vitamin D insufficiency 06/27/2023 Family history of colon cancer in mother 022 Overview (11/01/2022): Added automatically from request for surgery [id number] Personal history of colonic polyps 11/01/2022 Overview (11/01/2022): Added automatically from request for surgery [id number] Encounter for Medicare annual wellness exam 03/2022 Assessment & Plan (12/28/2024 8:39 AM LIFT SUPERVISOR): A(n) yearly Medicare Annual Wellness Visit has [...] on file Legal Sex Female 3:26 AM LIFT SUPERVISOR Gender Identity Female 06/24/2022 8:12 AM CDT Sexual Orientation Straight 08/07/2024 12 :21 PM CDT 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 Not on file Last Filed Vital Signs Vital Sign Reading Time Taken Comments Blood Pressure 136/84 12/28/2024 8:16 AM LIFT SUPERVISOR Pulse 60 12/28/2024 8:16 AM LIFT SUPERVISOR Temperature 36.1 C (96.9 F) 12/28/2024 8:16 AM LIFT SUPERVISOR Respiratory Rate 16 12/28/2024 8:16 AM LIFT SUPERVISOR Oxygen Saturation 98% 12/28/2024 8:16 AM LIFT SUPERVISOR Inhaled Oxygen Concentration - - Weight 73.5 kg (162 lb) 12/28/2024 8:16 AM LIFT SUPERVISOR Height 162.6 cm (5' 4 ) 12/28/2024 8:16 AM LIFT SUPERVISOR Body Mass Index 27.81 12/28/2024 8:16 AM LIFT SUPERVISOR Plan of Treatment Not on file Procedures Procedure Name Priority Date/Time Associated Diagnosis Comments CT LUNG CANCER SCREENING Schedule Routine, Read Routine (OP Routine) 12/26/2024 3:38 PM LIFT SUPERVISOR Personal history of tobacco use EGFR Routine 12/24/2024 9:27 AM LIFT SUPERVISOR Primary hypertension Mixed hyperlipidemia DIFFERENTIAL AUTO Routine 12/24/2024 9:2 7 AM LIFT SUPERVISOR Primary hypertension Mixed hyperlipidemia THYROID FUNCTION CASCADE Routine 12/24/2024 9:27 AM LIFT SUPERVISOR Primary hypertension LIPID PANEL Routine 12/24/2024 9:27 AM LIFT SUPERVISOR Mixed hyperlipidemia COMPREHENSIVE METABOLIC PANEL Routine 12/24/2024 9:27 AM LIFT SUPERVISOR Primary hypertension Mixed hyperlipidemia CBC WITH AUTO DIFFERENTIAL Routine 12/24/2024 9:27 AM LIFT SUPERVISOR Primary hypertension Mixed hyperlipidemia RELEASE TRIGGER FINGER 12/13/2024 8:29 AM LIFT SUPERVISOR Trigger middle finger of right hand Trigger ring finger of right hand Case Notes RT LONG AND RING A1 WALT RELEASE *LOCAL* XR HAND RIGHT 3 OR MORE VIEWS Schedule Routine, Read Routine (OP Routine) 12/07/2024 7:42 AM LIFT SUPERVISOR Right hand pain SCREENING MAMMOGRAM BILATERAL W [...] CT Lung Cancer Screening (12/26/2024 3:38 PM LIFT SUPERVISOR) Anatomical Region Laterality Modality Chest N/A Computed Tomogra phy 12/27/2024 8:58 AM LIFT SUPERVISOR Narrative 12/27/2024 9:23 AM LIFT SUPERVISOR EXAM DESCRIPTION: CT LUNG CANCER SCREENING REASON [...] by Lalito Gomez M.D. JR: Report ID: [id number] Reading Location: [id number] Procedure Note Lalito Gomez MD - 12/27/2024 [...] by Lalito Gomez M.D. JR: Report ID: [id number] Reading Location: [place] [address] Fly Moore MD IMG [address] PROCEDURES Final Res ult * eGFR (12/24/2024 9:27 AM LIFT SUPERVISOR) eGFR 76 >=60 mL/min/1. 73 m2 Comment: [...] last reviewed 2021. Blood 12/24/2024 9:27 AM LIFT SUPERVISOR 12/25/2024 12:03 AM LIFT SUPERVISOR Fly Moore MD LAB BLOOD ORDERABLES Final Result [facility] [address] Department [place] [address] * Differential, auto (12/24/2024 9:27 AM LIFT SUPERVISOR) Neutrophil abs 3.4 1.5 - 6.5 K/cumm Imm gran abs 0.0 0.0 - 0.1 K/cumm [facility] Lymphocyte abs 2.4 0.8 - 3.3 K/cumm [facility] Monocyte abs 0.4 0.2 - 0.8 K/cumm [facility] Eosinophil abs 0.1 0.0 - 0.5 K/cumm [facility] Basophil abs 0.0 0.0 - 0.1 K/cumm [facility] Neutrophil pct 52.8 % [facility] Comment: Interpretive Data Percent cell count reference ranges are not reported, since discordance with absolute values may lead to misinterpretation of CBC data. Current Interpretive Data was last revised on 2018. Imm gran pct 0.3 % [facility] Comment: Interpretive Data Percent cell count reference ranges are not reported, since discordance with absolute values may lead to misinterpretation of CBC data. Current Interpretive Data was last revised on 2018. Lymphocyte pct 38.0 % [facility] Comment: Interpretive Data Percent cell count reference ranges are not reported, since discordance with absolute values may lead to misinterpretation of CBC data. Current Interpretive Data was last revised on 2018. Monocyte pct 6.1 % [facility] Comment: Interpretive Data Percent cell count reference ranges are not reported, since discordance with absolute values may lead to misinterpretation of CBC data. Current Interpretive Data was last revised on 2018. Eosinophil pct 2.2 % [facility] Comment: Interpretive Data Percent cell count reference ranges are not reported, since discordance with absolute values may lead to misinterpretation of CBC data. Current Interpretive Data was last revised on 2018. Basophil pct 0.6 % [facility] Comment: Interpretive Data Percent cell count reference ranges are not reported, since discordance with absolute values may lead to misinterpretation of CBC data. Current Interpretive Data was last revised on 2018. Blood 12/24/2024 9:27 AM LIFT SUPERVISOR 12/24/2024 10:56 PM LIFT SUPERVISOR Fly Moore MD LAB BLOOD ORDERABLES Final Result Performing Organization Address [facility] Co de Phone Number ELIS PANCHAL [address] [facility] [place] [address] * Thyroid Function [place] (12/24/2024 9:27 AM LIFT SUPERVISOR) Pathologist [facility] TSH 2.12 0.30 - 4.20 mcIUnit/mL Blood 12/24/2024 9:27 AM LIFT SUPERVISOR 12/24/2024 10:56 PM LIFT SUPERVISOR Fly Moore MD LAB BLOOD ORDERABLES Final Result Performing Organization Address [facility] de Phone Number ELIS PANCHAL [address] [place] [address] * (ABNORMAL) CBC with auto differential (12/24/2024 9:27 AM LIFT SUPERVISOR) Pathologist [facility] WBC 6.4 3.8 - 9.9 K/cumm Hgb 13.2 11.9 - 15.5 g/dL [facility] Hct 42.5 35.6 - 45.5 % [facility] Plt 336 150 - 400 K/cumm [facility] MPV 10.5 9.1 - 12.3 fL [facility] RBC 4.58 3.90 - 5.20 M/cumm [facility] MCV 92.8 81.3 - 96.4 fL [facility] MCH 28.8 27.1 - 33.3 pg [facility] MCHC 31.1(L) 32.3 - 35.7 g/dL [facility] RDW CV 12.9 11.1 - 14.9 % [facility] RDW SD 43.8 35.7 - 48.1 fL [facility] NRBC abs 0.00 0.00 - 0.01 K/cumm [facility] Blood 12/24/2024 9:27 AM LIFT SUPERVISOR 12/24/2024 10:56 PM LIFT SUPERVISOR us Fly Moore MD LAB BLOOD ORDERABLES Final Result ELIS PANCHAL [address] [facility] Department [place] [address] * Lipid panel (12/24/2024 9:27 AM LIFT SUPERVISOR) Cholesterol 171 30 - 199 mg/dL Comment: [...] 2 ELIS PANCHAL Blood 12/24/2024 9:27 AM LIFT SUPERVISOR 12/24/2024 10:56 PM LIFT SUPERVISOR us Fly Moore MD LAB BLOOD ORDERABLES Final Result ELIS [address] Department [place] [address] * Comprehensive metabolic panel (12/24/2024 9:27 AM LIFT SUPERVISOR) Sodium 142 135 - 145 mmol/L Potassium, [...] Units/L [facility] Blood 12/24/2024 9:27 AM LIFT SUPERVISOR 12/24/2024 10:56 PM LIFT SUPERVISOR us Fly Moore MD LAB BLOOD ORDERABLES Final Result ELIS PANCHAL [address] Department [place] [address] * XR Hand Right 3 or More Views (12/07/2024 7:42 AM LIFT SUPERVISOR) Anatomical Region Laterality Modality Upper Extremities, Hand Right Computed Radiography 12/07/2024 8:03 AM LIFT SUPERVISOR Narrative 12/07/2024 8:04 AM LIFT SUPERVISOR EXAM DESCRIPTION: XR HAND RIGHT 3 OR [...] by Casa New TL: TL Report ID: [id number] Reading Location: [place] [address] Procedure Note Casa New MD - 12/07/2024 [...] by Casa New TL: TL Report ID: [id number] Reading Location: [place] [address] Casa New MD IMG XR PROCEDURES Final [...] F with given history of screening. Postmenopausal Licensed Social Worker/Model: goBalto Discovery SL (S/N [id number]) CLINICAL INFORMATION: Current height: 64.3 inches Maximum [...] Damion Marrero M.D. MF: ODETTE Report ID: [id number] Reading Location: [place] [address] Procedure Note Damion Marrero MD - 08/03/2022 EXAM DESCRIPTION: DEXA AXIAL SKELETON BONE DENSITY 1 OR MORE SITES REASON FOR STUDY: 67 y/o year old F with given history ofscreening. Postmenopausal Licensed Social Worker/Model: The 5th Quarter (S/N [id number]) CLINICAL INFORMATION: Current height: 64.3 inches Maximum [...] Damion Marrero M.D. MF: ODETTE Report ID: [id number] Reading Location: [place] [address] Fly Moore MD IM DXA PROCEDURES Final Re sult * Hepatitis C antibody (06/24/2022 9:19 AM CDT) Pathologist [facility] Hep C Ab Nonreactive Nonreactive ELIS PANCHAL [...] Final Result Performing Organization Address City/[place] [address] [address] Department [place] [address] * Colonoscopy (01/10/2018) Anatomical Region Laterality Modality Other Historical Provider ENDOSCOPY PROCEDURES Angie l Result from Last 3 Months or Most Recently Relevant to Health Maintenance Insurance [facility] MEDICARE [facility]IC[facility] Care Teams Machine Slat Basket Maker Relationship Specialty Start Date End Date Fly Moore MD [address] [place] [address] PCP - General Family Medicine 06/22/22
--- OUTSIDE RECORDS SUMMARY | 2025-01-28 19:15 | XMS_ITS | Continuity of Care Document ---
Author Organization [facility] Address [address] [place] [address] Phone Care Team Providers [facility] Medical Biller Name Role Phone Ciaran Guzman MD Unavailable [...] Diagnoses Date Provider Providers Copied on Encounter [facility], [address], [place], [place], [address] , tel: [phone] Ragan No Information 7 Megan Wagoner. [address] [address], [place], [place], [address] , [place]. tel: [phone] [facility], [address], [place], [place], [address] , [place] tel: [phone] Ragan Abnormal CT scan, kidney 6 Megan Wagoner. [address], [facility] [address], [place], [place], [address] , . tel: [phone] [facility], [address], [place], [place], [address] , tel: [phone] Ragan Epigastric abdominal painLower abdominal painTobacco useAbnormal CT scan, kidneyFamily disruption due to divorce or legal separation 6 Woodrowcody Edwards. [address], [address], [place], [place], [address] . tel: [phone] Referring Provider: Ciaran Guzman, [address] [place] [address] [address], [place], [address] . tel:[phone] [facility], [address], [place], [place], [address] , [place] tel: [phone] Ragan Tobacco AbuseExternal hemorrhoidMigraineDi verticulitis of sigmoid colonCyst of right kidneySPECIAL SCREENING FOR MALIGNANT NEOPLASMS, OTHER SITES 4 Pricila Grace. [address], [address], [place], [place], [address] . tel: [phone] Referring Provider: Ciaran Guzman, [address] [place] [address] [address], [place], [address] . tel:[phone] [facility], [address], [place], [place], [address] , [place] tel: [phone] Ragan No Information Jan- 3 Pricila Edwards. [facility] [address], [address], [place], [place], [address] . tel: [phone] [facility], [address], [place], [place], [address] , [place] tel: [phone] Ragan Allergic rhinitis, cause unspecifiedOther and unspecified hyperlipidemiaOsteop orosis, unspecifiedDisorder of bone and cartilage, unspecifiedMigraine, unspecified without mention of intractable migraineEnlargement of lymph nodesTobacco useVitamin d deficiencyFamily history of breast cancerOther and unspecified hyperlipidemiaRoutin e gynecological examinationSPECIAL SCREENING FOR MALIGNANT NEOPLASMS, OTHER SITES Jan- 3 Pricila Edwards. [address], [address], [place], [place], [address] . tel: [phone] Referring Provider: Ciaran Guzman [address] [place] [address] [address], [place], [address] . tel:[phone] [facility], [address], [place], [place], [address] , [place] tel: [phone] Ragan POSTMENOPAUSAL BLEEDING 1 Megan Wagoner. [address], [address], [place], [place], [address] , [place]. tel: [phone] [facility], [address], [place], [place], [address] , [place] tel: [phone] Ragan VITAMIN D DEFICIENCY NOS 1 Pricila Domingon. [address] [place] [address], [address], [place], [place], [address] . 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 [address] [place] [address], [address], [place], [address], [place]. tel: [phone] [facility], [address], [place], [place], [address] , [place] tel: [phone] Ragan MENOPAUSAL DISORDER NECSCREEN MAL NEOP-CERVIXFAMILY HX-BREAST MALIGPURE HYPERCHOLESTEROLEM 1 Pricila Grace. [address] [place] [address], [facility] [address], [place], [place], [address] . tel: [phone] [facility], [address], [place], [place], [address] , [place] tel: [phone] Ragan VRNT MGRN W NTRC MGR NEC 0 Pricila Grace. [address] [place] [address], [address], [place], [place], [address] . tel: [phone] [facility], [address], [place], [place], [address] , [place] tel: [phone] Ragan NONRUPT CEREBRAL ANEURYMHYPERLIPIDEMI A NEC/NOSVISUAL DISCOMFORT 0 Megan Jacobsen. [address], [address], [place], [place], [facility], [place]. tel: [phone] [facility], [address], [place], [place], [address] , [place] tel: [phone] Ragan DERMATITIS NOSSCREEN-DIABETES MELLITUSSCREEN MALIG CFTZ-TYWWAYWTO-OWRIA WILMA HEART DIS 8 Megan Jacobsen. [address], [address], [place], [facility], [place]. tel: [phone] [facility], [address], [place], [place], [address] , [place] tel: [phone] Ragan ACUTE SINUSITIS NOSAC SUPP OTITIS MEDIA NOS 7 Megan Jacobsen. [address] [place] [address], [facility] [address], [place], [facility], [place]. tel: [phone] [facility], [address], [place], [address] , [place] tel: [phone] Ragan JOINT PAIN-L/LEGENTHESOPAT HY OF HIPCALCIF TENDINITIS SHLDERABN PAP CERVIX HPV NEC 7 Megan Jacobsen. [address] [place] [address], [address], [place], [facility], [place]. tel: [phone] [facility], [address], [place], [place], [address] , [place] tel: [phone] Ragan FAMILY HX-STROKE 7 Mocody Domingon. [address] [place] [address], [facility] [address], [place], [place], [address] . tel: [phone] [facility], [address], [place], [place], [address] , [place] tel: [phone] Ragan CARBUNCLE NOS 7 Woodrowcody Grace. [address] [place] [address], [facility] [address], [place], [place], [address] . tel: [phone] [facility], [address], [place], [place], [address] , [place] tel: [phone] Ragan FAM HX-DIABETES MELLITUS 7 Woodrowcody Edwards. [address], [address], [place], [place], [address] . tel: [phone] [facility], [address], [place], [place], [address] , [place] tel: [phone] Ragan ROUTINE MEDICAL EXAMOSTEOPOROSIS NOS 5 Megan Delmar. [address], [address], [place], [address], [place]. tel: [phone] [facility], [address], [place], [place], [address] , [place] tel: [phone] Ragan SPRAIN LUMBAR REGION 4 Woodrowcody Edwards. [address] [place] [address], [address], [place], [place], [address] . tel: [phone] [facility], [address], [place], [place], [address] , [place] tel: [phone] Ragan ABN GLANDULAR PAP SMEAR 4 Meganyonathan Jacobsen. [address], [address], [place], [address], [place]. tel: [phone] [facility], [address], [place], [place], [address] , [place] tel: [phone] Ragan SYMPT FEM CLIMACT STATEGYNECOLOGIC EXAMINATION 0 4 Pricila Edwards. [facility] [address], [address], [place], [place], [address] . tel: [phone] [facility], [address], [place], [place], [address] , [place] tel: [phone] Ragan ACUTE CONJUNCTIVITIS NOS 2 4 Pricila Edwards. [address], [address], [place], [place], [address] . tel: [phone] [facility], [address], [place], [place], [address] , [place] tel: [phone] [facility] HEADACHE Feb- 4 Pricila Edwards. [address], [facility] [address], [place], [place], [address] . tel: [phone] [facility], [address], [place], [place], [address] , tel: [phone] Ragan ALLERGIC RHINITIS NOS Feb- 8200 4 Pricila Edwards. [address] [place] [address], [address] [address], [place], [place], [address] . tel: [phone] [facility], [address], [place], [place], [address] , tel: [phone] Ragan LUMBAGO Sep-0 2200 3 Pricila Edwards[address] [place] [address], [address] [address], [place], [place], [address] . tel: [phone] [facility], [address], [place], [place], [address] , tel: [phone] Ragan VAGINITIS NOSCANDIDAL VULVOVAGINITISSEBACE OUS CYSTFM HX-ENDO/METAB DIS NECAC SEROUS OTITIS MEDIA 9200 3 Pricila Edwards. [address] [place] [address], [address] [address], [place], [place], [address] . tel: [phone] [facility], [address], [place], [place], [address] , tel: [phone] [facility] FAMILY HX-GI MALIGNANCY 2 Pricila Edwards. [address] [place] [address], [place], [place], [address] . tel: [phone] Family History Family Member Type Diagnosis Age At Onset Problem (finding) Family history of cance r of colon Mom, MGM Problem (finding) malignant neoplasm of m doug breast Dad, p uncle, cousin Problem (finding) Cererbral aneur ysm Mother Problem (finding) diabetes melli tus in first degree relative Mother Problem (finding) coronary arterioscleros is MGM Problem (finding) stroke Immunizations Vaccine Date Status Comments 05663 - Tetanus_Diptheria_Pertussis_Tdap administered Source: Source Unspecified Payers Payer name Insurance type Covered alliance party ID Authoriza tion(s) FAM [facility] CI [id number] Social History Type Description Quantity Date Captured [...]
--- OUTSIDE RECORDS SUMMARY | 2025-01-28 19:15 | XMS_ITS | Clinical Summary ---
Author Organization [address] Address [address] [place] [phone] Care Team Providers Care Spot Man Name Role Phone Fly Moore MD Primary Care Provider [phone] Allergies Active Allergy Reactions Criticality Noted Date [...] 06/27/2023 Assessment & Plan (12/28/2023 10:08 AM MEDICAL INFORMATION SPECIALIST): Blood Pressure Follow-up: Lifestyle modifications education provided on sodium reduction, increase physical activity, reduce alcohol consumption, and weight reduction. Awaiting labs Mixed hyperlipidemia 06/27/2023 Assessment & Plan (12/28/2023 10:08 AM MEDICAL INFORMATION SPECIALIST): Awaiting lipid panel Vitamin D insufficiency 06/27/2023 Family history of colon cancer in mother 022 Overview (11/01/2022): Added automatically from request for surgery [id number] Personal history of colonic polyps 11/01/2022 Overview (11/01/2022): Added automatically from request for surgery [id number] Encounter for Medicare annual wellness exam 03/2022 Assessment & Plan (12/28/2024 8:39 AM MEDICAL INFORMATION SPECIALIST): A(n) yearly Medicare Annual Wellness Visit has [...] Department Care Team Description 12/31/2024 Patient Message [facility] Primary Care at [address] [phone] Fly Moore MD Dermatology referral 12/28/2024 8:00 AM MEDICAL INFORMATION SPECIALIST Office Visit [facility] Primary Care at [address] [phone] Fly Moore MD Encounter for Medicare annual wellness exam (Primary Dx); Vitamin D insufficiency; Primary hypertension; Mixed hyperlipidemia; Screening for osteoporosis; Seasonal allergies; Asymptomatic menopausal state; Screening exam for skin cancer 12/26/2024 3:17 PM MEDICAL INFORMATION SPECIALIST - 12/26/2024 11:59 PM MEDICAL INFORMATION SPECIALIST Hospital Encounter [address] [address] Personal history of tobacco use Discharge Disposition: Discharge to home or self care 12/26/2024 8:15 AM MEDICAL INFORMATION SPECIALIST Office Visit [facility] Hand Surgery [address] [facility] [address] [place] [phone] Delmy Harrison, PAT Trigger middle finger of right hand (Primary Dx); Trigger finger, right middle finger 12/24/2024 9:30 AM MEDICAL INFORMATION SPECIALIST Lab [facility] Outpatient Lab at [address] [phone] Mixed hyperlipidemia (Primary Dx) 12/24/2024 9:27 AM MEDICAL INFORMATION SPECIALIST - 12/24/2024 11:59 PM MEDICAL INFORMATION SPECIALIST Hospital Encounter [address] [address] Primary hypertension; Mixed hyperlipidemia Discharge Disposition: Discharge to home or self care 12/21/[address] [address] Ines Nnun RN 12/13/2024 9:30 AM MEDICAL INFORMATION SPECIALIST - 12/13/2024 10:00 AM MEDICAL INFORMATION SPECIALIST Surgery [facility] OR [address] [place] [address] Casa New MD RIGHT LONG AND RING A1 WALT RELEASE 12/13/2024 7:08 AM MEDICAL INFORMATION SPECIALIST - 12/13/2024 9:50 AM MEDICAL INFORMATION SPECIALIST Hospital Encounter [facility] Main OR [address] [place] [address] Casa New MD Trigger middle finger of right hand [M65.331] (Primary Dx); Trigger ring finger of right hand [M65.341] Discharge Disposition: Discharge to home or self care 12/07/2024 7:45 AM MEDICAL INFORMATION SPECIALIST Office Visit [facility] Hand Surgery [address] [facility] [address] [place] [phone] Casa New MD Right hand pain (Primary Dx); Trigger finger, right middle finger; Trigger middle finger of right hand; Trigger ring finger of right hand 12/07/2024 7:38 AM MEDICAL INFORMATION SPECIALIST - 12/07/2024 11:59 PM MEDICAL INFORMATION SPECIALIST Hospital Encounter [facility] MOB 1 DIAG IMG [address] [place] [address] Right hand pain Discharge Disposition: Discharge to [...] on file Legal Sex Female 3:26 AM MEDICAL INFORMATION SPECIALIST Gender Identity Female 06/24/2022 8:12 AM CDT Sexual Orientation Straight 08/07/2024 12 :21 PM CDT 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 Not on file Not on file Not on file Obstetrics History Para Term AB IAB SAB Ectopic Multiple Livin g Live Births 4 4 4 Date Outcome GA Total Labor Labor/2nd/3rd Weight Sex Type Anes PTL Denice A1 A5 Name Clin Term Term Term Term Last Filed Vital Signs Vital Sign Reading Time Taken Comments Blood Pressure 136/84 12/28/2024 8:16 AM MEDICAL INFORMATION SPECIALIST Pulse 60 12/28/2024 8:16 AM MEDICAL INFORMATION SPECIALIST Temperature 36.1 C (96.9 F) 12/28/2024 8:16 AM MEDICAL INFORMATION SPECIALIST Respiratory Rate 16 12/28/2024 8:16 AM MEDICAL INFORMATION SPECIALIST Oxygen Saturation 98% 12/28/2024 8:16 AM MEDICAL INFORMATION SPECIALIST Inhaled Oxygen Concentration - - Weight 73.5 kg (162 lb) 12/28/2024 8:16 AM MEDICAL INFORMATION SPECIALIST Height 162.6 cm (5' 4 ) 12/28/2024 8:16 AM MEDICAL INFORMATION SPECIALIST Body Mass Index 27.81 12/28/2024 8:16 AM MEDICAL INFORMATION SPECIALIST Plan of Treatment Health Maintenance Due Date [...] Read Routine (OP Routine) 12/26/2024 3:38 PM MEDICAL INFORMATION SPECIALIST Personal history of tobacco use EGFR Routine 12/24/2024 9:27 AM MEDICAL INFORMATION SPECIALIST Primary hypertension Mixed hyperlipidemia DIFFERENTIAL AUTO Routine 12/24/2024 9:2 7 AM MEDICAL INFORMATION SPECIALIST Primary hypertension Mixed hyperlipidemia THYROID FUNCTION CASCADE Routine 12/24/2024 9:27 AM MEDICAL INFORMATION SPECIALIST Primary hypertension LIPID PANEL Routine 12/24/2024 9:27 AM MEDICAL INFORMATION SPECIALIST Mixed hyperlipidemia COMPREHENSIVE METABOLIC PANEL Routine 12/24/2024 9:27 AM MEDICAL INFORMATION SPECIALIST Primary hypertension Mixed hyperlipidemia CBC WITH AUTO DIFFERENTIAL Routine 12/24/2024 9:27 AM MEDICAL INFORMATION SPECIALIST Primary hypertension Mixed hyperlipidemia RELEASE TRIGGER FINGER 12/13/2024 8:29 AM MEDICAL INFORMATION SPECIALIST Trigger middle finger of right hand Trigger ring finger of right hand Case Notes RT LONG AND RING A1 WALT RELEASE *LOCAL* XR HAND RIGHT 3 OR MORE VIEWS Schedule Routine, Read Routine (OP Routine) 12/07/2024 7:42 AM MEDICAL INFORMATION SPECIALIST Right hand pain SCREENING MAMMOGRAM BILATERAL W [...] CT Lung Cancer Screening (12/26/2024 3:38 PM MEDICAL INFORMATION SPECIALIST) Anatomical Region Laterality Modality Chest N/A Computed Tomogra phy 12/27/2024 8:58 AM MEDICAL INFORMATION SPECIALIST Narrative 12/27/2024 9:23 AM MEDICAL INFORMATION SPECIALIST EXAM DESCRIPTION: CT LUNG CANCER SCREENING REASON [...] by Lalito Gomez M.D. JR: Report ID: [id number] Reading Location: [place] [address] Procedure Note Laliot Gomez MD - 12/27/2024 EXAM DESCRIPTION: CT [...] by Lalito Gomez M.D. JR: Report ID: [id number] Reading Location: [place] [address] Fly Moore MD IMG CT PROCEDURES Final Res ult * eGFR (12/24/2024 9:27 AM MEDICAL INFORMATION SPECIALIST) eGFR 76 >=60 mL/min/1. 73 m2 Comment: [...] last reviewed 2021. Blood 12/24/2024 9:27 AM MEDICAL INFORMATION SPECIALIST 12/25/2024 12:03 AM MEDICAL INFORMATION SPECIALIST Fly Moore MD LAB BLOOD ORDERABLES Final Result [facility] [address] [address] Department [place] [address] * Differential, auto (12/24/2024 9:27 AM MEDICAL INFORMATION SPECIALIST) Neutrophil abs 3.4 1.5 - 6.5 K/cumm Imm gran abs 0.0 0.0 - 0.1 K/cumm [facility] Lymphocyte abs 2.4 0.8 - 3.3 K/cumm [facility] Monocyte abs 0.4 0.2 - 0.8 K/cumm [facility] Eosinophil abs 0.1 0.0 - 0.5 K/cumm [facility] Basophil abs 0.0 0.0 - 0.1 K/cumm [facility] Neutrophil pct 52.8 % C[facility] Comment: [...] revised on 2018. Blood 12/24/2024 9:27 AM MEDICAL INFORMATION SPECIALIST 12/24/2024 10:56 PM MEDICAL INFORMATION SPECIALIST Fly Moore MD LAB BLOOD ORDERABLES Final Result Performing Organization Address [facility] Co de Phone Number ELIS PANCHAL [address] [address] [facility] [place] [address] * Thyroid Function [place] (12/24/2024 9:27 AM MEDICAL INFORMATION SPECIALIST) Pathologist [facility] TSH 2.12 0.30 - 4.20 mcIUnit/mL Blood 12/24/2024 9:27 AM MEDICAL INFORMATION SPECIALIST 12/24/2024 10:56 PM MEDICAL INFORMATION SPECIALIST Fly Moore MD LAB BLOOD ORDERABLES Final Result Performing Organization Address [facility] de Phone Number [place] PANCHAL [address] [address] [facility] [place] [address] * (ABNORMAL) CBC with auto differential (12/24/2024 9:27 AM MEDICAL INFORMATION SPECIALIST) WBC 6.4 3.8 - 9.9 K/cumm Hgb [...] K/cumm [facility] Blood 12/24/2024 9:27 AM MEDICAL INFORMATION SPECIALIST 12/24/2024 10:56 PM MEDICAL INFORMATION SPECIALIST us Fly Moore MD LAB BLOOD ORDERABLES Final Result [place]AL [address] [address] Department [place] [address] * Lipid panel (12/24/2024 9:27 AM MEDICAL INFORMATION SPECIALIST) Cholesterol 171 30 - 199 mg/dL Comment: [...] 2 ELIS PANCHAL Blood 12/24/2024 9:27 AM MEDICAL INFORMATION SPECIALIST 12/24/2024 10:56 PM MEDICAL INFORMATION SPECIALIST us Fly Moore MD LAB BLOOD ORDERABLES Final Result [place] [address] [address] Department [place] [address] * Comprehensive metabolic panel (12/24/2024 9:27 AM MEDICAL INFORMATION SPECIALIST) Sodium 142 135 - 145 mmol/L Potassium, [...] Units/L [facility] Blood 12/24/2024 9:27 AM MEDICAL INFORMATION SPECIALIST 12/24/2024 10:56 PM MEDICAL INFORMATION SPECIALIST us Fly Moore MD LAB BLOOD ORDERABLES Final Result [place] [address] [address] Department [place] [address] * XR Hand Right 3 or More Views (12/07/2024 7:42 AM MEDICAL INFORMATION SPECIALIST) Anatomical Region Laterality Modality Upper Extremities, Hand Right Computed Radiography 12/07/2024 8:03 AM MEDICAL INFORMATION SPECIALIST Narrative 12/07/2024 8:04 AM MEDICAL INFORMATION SPECIALIST EXAM DESCRIPTION: XR HAND RIGHT 3 OR [...] by Casa New TL: TL Report ID: [id number] Reading Location: [place] [address] Procedure Note Casa New MD - 12/07/2024 [...] 8:04 AM - Electronically signed by Casa Nwe TL: TL Report ID: [id number] Reading Location: [place] [address] Casa New MD IMG XR PROCEDURES Final [...] F with given history of screening. Postmenopausal Relief Manager/Model: DayMen U.S SL (S/N [id number]) CLINICAL INFORMATION: Current height: 64.3 inches Maximum [...] Damion Marrero M.D. MF: ODETTE Report ID: [id number] Reading Location: [place] [address] Procedure Note Damion Marrero MD - 08/03/2022 EXAM DESCRIPTION: DEXA AXIAL SKELETON BONE DENSITY 1 OR MORE SITES REASON FOR STUDY: 67 y/o year old F with given history ofscreening. Postmenopausal Relief Manager/Model: [employer] SL (S/N [id number]) CLINICAL INFORMATION: Current height: 64.3 inches Maximum [...] Damion Marrero M.D. MF: ODETTE Report ID: [id number] Reading Location: [place] [address] Fly Moore MD IM DXA PROCEDURES Final Re sult * Hepatitis C antibody (06/24/2022 9:19 AM CDT) Pathologist [facility] Hep C Ab Nonreactive Nonreactive ELIS Comment: [...] Final Result Performing Organization Address City/[place] [address] [address] Department [place] [address] * Colonoscopy (01/10/2018) Anatomical Region Laterality Modality Other Historical Provider ENDOSCOPY PROCEDURES Angie l Result from Last 3 Months or Most Recently Relevant to Health Maintenance Insurance [facility] MEDIC[facility] Care Teams Spot Man Relationship Specialty Start Date End Date Fly Moore MD [address] [place] [address] PCP - General Family Medicine 06/22/22
[2025-01-29] VITALS (10 sets, daily range): BP systolic 130–150; BP diastolic 74–86; PULSE 64–85; RESP 18; TEMP 36.1–36.7; O2SAT 96–100
--- NOTE | 2025-01-29 08:48 | P.HP_ITS ---
H&P: HPI History of Present Illness Date/Time: 01/29/25 08:48 Chief Complaint: Slurred speech vision change, left hand numbness Narrative: 69 years old lady with history of hyperlipidemia, migraine, tobacco dependence, present ED was chief complaint of sudden onset slurred speech,, numbness weakness of left arm and hand that started about 1:15 p.m. yesterday. Patient was doing yd work yesterday, patient is on noticed patient had slurred speech. And patient noticed weakness of left upper extremity, repeated drop things from her left hand. Patient also had blurred vision. Patient denies headache, lightheadedness. Patient was sent to ED for evaluation, in the ED, symptom have resolved. Patient had headache, denies nausea vomiting, photophobia, patient also denies chest pain, palpitation, abdomen pain fever dysuria. Upon arrival in the ED, patient was afebrile, blood pressure stable, uncontrolled 174/88, pulse ox 97 on room air, CBC and CMP unremarkable. EKG shows sinus rhythm, no specific ST or T-wave changes,, chest issue shows no acute cardiopulmonary issues CT head shows no acute intracranial issues, CT head neck shows no stenosis, brain MRI pending Patient received aspirin 325 mg once, we admit patient for further evaluation and management Review of Systems Review of Systems: ROS negative except above PMFSH Past Medical History Medical History Seasonal allergies Surgical History Surgical History No pertinent past surgical history Family History Family History Mother Cancer Depression Heart disease Cerebrovascular accident Grandparent Cancer Diabetes mellitus Hypertension Cerebrovascular accident Other Family history of malignant neoplasm of breast Family history of malignant neoplasm of uterus Social History Social History Years smoked: 45 Smoking status: Former smoker Tobacco type: cigarettes Alcohol intake: never Substance use: never Do You Feel Safe in your Home?: Yes Lack of Transportation: No Lack of Food: Never True Current Housing: I Have Housing Concerned About Future Housing: No Difficulty Paying Gas/Electric Bills: No Difficulty Paying for Meds: No Currently Unemployed: No Education: Master's Degree or Higher Difficulty w/ Childcare or Family Care: No Spiritual care concerns: No Meds Home Medications and Allergies Home Medications ?Medication ?Instructions ?Recorded ?Confirmed ?Type loratadine 10 mg tablet 10 mg PO DAILY 01/12/23 01/28/25 History rosuvastatin 10 mg tablet 10 mg PO DAILY 01/28/25 01/28/25 History Allergies Allergy/AdvReac Type Severity Reaction Status Date / Time pantoprazole AdvReac Intermediate Nose Bleed Verified 01/28/25 16:20 Vital Signs Vital Signs - 24 hr 01/28/25 15:36 01/28/25 15:45 01/28/25 15:48 Temperature 97.6 F Pulse Rate 79 84 84 Respiratory Rate 18 20 Blood Pressure 174/88 H Pulse Oximetry 97 97 Oxygen Delivery Room Air 01/28/25 15:52 01/28/25 16:36 01/28/25 17:33 Temperature 97.3 F L Pulse Rate 80 70 Respiratory Rate 20 16 Blood Pressure 167/93 H 129/69 Pulse Oximetry 98 97 97 Oxygen Delivery Room Air 01/28/25 20:00 01/28/25 22:34 01/29/25 00:00 Temperature 97.6 F Pulse Rate 70 78 71 Respiratory Rate 16 18 Blood Pressure 154/72 H Pulse Oximetry 97 97 Oxygen Delivery Room Air 01/29/25 04:00 01/29/25 06:00 01/29/25 08:44 Temperature 97.0 F L Pulse Rate 69 74 Respiratory Rate 18 Blood Pressure 130/86 Pulse Oximetry 96 97 Oxygen Delivery Room Air Exam Narrative: GENERAL: Pleasant, in no acute distress. Well-nourished. - EYES: EOMI. Anicteric. - HENT: Moist mucous membranes. - LUNGS: Clear to auscultation bilateral ly, no wheezing, rhonchi, or rales. - CARDIOVASCULAR: Regular rate and rhyth m. No murmur. No JVD. - ABDOMEN: Soft, non-tender and non-dist ended. No palpable masses. - EXTREMITIES: No edema. Peripheral puls es 2+. Non-tender. - NEUROLOGIC: No focal neurological defi cits. CN II-XII grossly intact. - PSYCHIATRIC: Awake, Alert and oriented x 3. Appropriate mood and affect. - SKIN: No rashes or lesions. Warm. - LYMPH: No cervical lymphadenopathy. H&P: Results Labs Labs: Short CBC 01/28/25 Range/Units 15:05 WBC 9.0 (4.5-10.0) K/mm3 Hgb 13.3 (12.0-15.0) g/dL Hct 39.1 (37.0-47.0) % Plt Count 321 (150-375) k/mm3 BMP 01/28/25 01/28/25 15:05 15:07 Sodium 139 Potassium 3.8 Chloride 104 Carbon Dioxide 23 BUN 13 Creatinine 0.93 1.00 Glucose 118 H Calcium 9.8 Cardiac Enzymes 01/28/25 Range/Units 15:05 Troponin I < 0.012 (0.000-0.034) ng/mL Liver Function 01/28/25 Range/Units 15:05 Total Bilirubin 0.8 (0.2-1.3) mg/dL AST 25 (14-36) U/L ALT 20 (6-35) U/L Alkaline Phosphatase 87 (38-126) U/L Albumin 4.7 (3.5-5.1) g/dL Assessment and Plan Assessment and plan (1) Acute CVA (cerebrovascular accident): Code(s): I63.9 - Cerebral infarction, unspecified Status: Acute (2) Uncontrolled hypertension: Code(s): I10 - Essential (primary) hypertension Status: Acute (3) Migraine: Code(s): G43.909 - Migraine, unspecified, not intractable, without status migrainosus Status: Acute (4) Tobacco dependence: Code(s): F17.200 - Nicotine dependence, unspecified, uncomplicated Status: Acute (5) Hyperlipidemia: Code(s): E78.5 - Hyperlipidemia, unspecified Status: Acute Plan Acute CVA Patient had a sudden onset weakness of left arm, slurred speech, symptom resolved in the ED CT head shows no acute intracranial issues, CT head and neck shows no significant stenosis Possible acute CVA brain MRI 1. Extensive nonspecific cerebral white matter disease and pontine disease and left basal ganglia disease, which likely represents chronic small vessel ischemic disease., echocardiogram with bubble study, Continue aspirin 81 mg daily p.o., Plavix 75 mg daily p.o. Continue home medication Crestor 10 mg daily p.o. Follow-up lipid panel Telemetry monitoring Neuro check Four precaution Consult PT OT Consult neurologist for evaluation treatment Uncontrolled hypertension Hold hypertension medication during hypertension permission except systolic pressure above 220 hour diastolic above 120 Tobacco dependence Advised patient stop smoking Provide nicotine patch Quality VTE Prophylaxis VTE prophylaxis: pharmacologic ordered (Heparin) Hospitalist MIPS Advance Care Plan I have confirmed that the patient's Advanced Care Plan is present, code status is documented, or surrogate decision maker is listed in patient medical record.: Yes Medication Reconciliation The patient is not eligible for med reconciliation; the patient is in a emergent medical situation where delaying treatment would jeopardize the patients health.: Yes
--- NOTE | 2025-01-29 09:07 | ECHO_ITS ---
Patient Info Name: Mary Rojas Age: 69 years : 1955 Gender: Female Ht: 64 in Wt: 165 lbs BSA: 1.86 m2 HR: 68 bpm BP: 130 / 86 mmHg Heart Rhythm: Sinus Rhythm Technical Quality: Good Exam Date: 01/29/2025 1:18 PM Exam Location: Echo Lab Patient Status: Outpatient Admit Date: 01/28/2025 Staff Ordering Physician: Martinez Alvarenga MD Bi Data Architect: Tanna Greer RDCS Attending Provider: Vitaly Cordon MD Exam Type: CA echo doppler w bubble study Study Info Indications - Acute CVA Complete two-dimensional, color flow and Doppler transthoracic echocardiogram is performed with agitated saline. Contrast/Agitated Saline Contrast/Ag. Saline: Agitated Saline Amount: 18.00 ml Existing IV Access: Yes IV Access Condition: patent with no signs of infiltration Summary 1. Left ventricular chamber dimension is normal. 2. Left ventricular systolic function is normal, estimated at 65-70%. 3. There is mildly increased left ventricular wall thickness. 4. The left ventricular diastolic function is grade I diastolic dysfunction. 5. Right ventricular systolic function is normal. 6. Intact interatrial septum visualized by color flow and agitated saline imaging. Negative bubble study. 7. There is mild mitral valve regurgitation. 8. There is mild tricuspid valve regurgitation. Left Ventricle Left ventricular chamber dimension is normal. Left ventricular systolic function is normal, estimated at 65-70%. There is mildly increased left ventricular wall thickness. The left ventricular diastolic function is grade I diastolic dysfunction. Right Ventricle Right ventricular chamber dimension is normal. Right ventricular systolic function is normal. Left Atria Left atrial chamber dimension is normal. Right Atria Right atrial chamber dimension is normal. Atrial Septum Intact interatrial septum visualized by color flow and agitated saline imaging. Negative bubble study. Aortic Valve The aortic valve is trileaflet. There is no aortic valve stenosis. Pulmonic Valve The pulmonic valve is not well visualized. Mitral Valve There is mild mitral valve regurgitation. Tricuspid Valve There is mild tricuspid valve regurgitation. Pericardium/Pleural There is no pericardial effusion. Inferior Vena Cava Normal inferior vena cava with >50% collapse upon inspiration consistent with normal right atrial pressure, 3 mmHg. Aorta The aortic root size at the sinus of Valsalva is normal. Left Ventricular Outflow Tract Name Value Normal LVOT 2D LVOT Diameter 1.9 cm LVOT Doppler LVOT Peak Gradient 3 mmHg LVOT Mean Gradient 2 mmHg LVOT VTI 21 cm LVOT VTI/AV VTI Ratio 0.8 LVOT Stroke Volume 58 ml LVOT CO 10.7 l/min LVOT CI 5.8 l/min/m2 Pulmonic Valve Name Value Normal PV Doppler PV Peak Gradient 4 mmHg Mitral Valve Name Value Normal MV Doppler MV Decel [place] 189 cm/s2 MV PHT 89 ms MV Area (PHT) 2.5 cm2 4.0-5.0 MV Diastolic Function MV E Peak Velocity 58 cm/s MV A Peak Velocity 78 cm/s MV E/A 0.7 MV Decel Time 306 ms MV Annular TDI MV E/e' (Septal) 9.2 <=8.0 MV E/e' (Lateral) 9.0 <=8.0 MV E/e' (Average) 9.1 Tricuspid Valve Name Value Normal TV Regurgitation Doppler TR Peak Velocity 238 cm/s TR Peak Gradient 23 mmHg Estimated PAP/RSVP RA Pressure 3 mmHg <=5 PA Systolic Pressure 26 mmHg <36 RV Systolic Pressure 26 mmHg <36 Aorta Name Value Normal Ascending Aorta Ao Root Diameter (MM) 3.3 cm Ao Root Diam Index (MM) 1.8 cm/m2 Aortic Valve Name Value Normal AV Doppler AV Peak Velocity 129 cm/s AV Peak Gradient 7 mmHg AV Mean Gradient 3 mmHg AV VTI 26 cm AV Area (Cont Eq VTI) 2.3 cm2 >=3.0 AV Area (Cont Eq Liang) 2.0 cm2 AV Regurgitation 2D LVOT Area 2.7 cm2 Ventricles Name Value Normal LV Dimensions 2D/MM IVS Diastolic Thickness (2D) 1.2 cm 0.6-1.0 LVID Diastole (2D) 4.2 cm 3.8-5.2 LVIW Diastolic Thickness (2D) 1.1 cm 0.6-0.9 LVID Systole (2D) 2.6 cm 2.2-3.5 LVOT Diameter 1.9 cm LV Mass (2D Cubed) 159.75 g 67.00-162.00 LV Mass Index (2D Cubed) 86 g/m2 43-95 Relative Wall Thickness (2D) 0.51 LV Fractional Shortening/Ejection Fraction 2D/MM LV Fractional Shortening (2D) 38 % 27-45 LV EF (2D [place]) 68 % 54-74 LV Diastolic Volume (4C MOD) 75 ml LV EF (4C MOD) 75 % LV Diastolic Volume (2C MOD) 68 ml LV EF (2C MOD) 62 % LV Diastolic Volume (BP MOD) 72 ml 46-106 LV Diastolic Volume Index (BP MOD) 39 ml/m2 29-61 LV Systolic Volume (BP MOD) 24 ml 14-42 LV Systolic Volume Index (BP MOD) 13 ml/m2 8-24 LV EF (BP MOD) 67 % 54-74 LV Diastolic Length (4C) 7.4 cm LV Systolic Length (4C) 5.4 cm LV Stroke Volume (4C MOD) 56 ml RV Dimensions 2D/MM RVID Diastole (2D) 3.8 cm 2.5-3.5 Atria Name Value Normal LA Dimensions LA Dimension (MM) 3.5 cm 2.7-3.8 LA Volume (4C A-L) 40 ml LA Volume (BP A-L) 42 ml RA Dimensions RA Area (4C) 16.6 cm2 <=18.0 Report Signatures
[2025-01-29 10:05] LABS: Cholesterol 167 mg/dL (0-200); HDL Direct 76 mg/dL; Triglycerides 81 mg/dL (<150)
[2025-01-29 10:15] LABS: LDL Cholesterol Direct 63 mg/dL
[2025-01-29] MEDS: ASPIRIN 81 MG ENTERIC TABLET PO (10:44)
[2025-01-29] MEDS: ROSUVASTATIN 10 MG TABLET PO (10:44)
[2025-01-29] MEDS: CLOPIDOGREL BISULFATE 75 MG TABLET PO (10:44)
--- NOTE | 2025-01-29 12:32 | P.CONNEU_ITS ---
Assessment and Plan Assessment and plan (1) Transient ischemic attack (TIA): Code(s): G45.9 - Transient cerebral ischemic attack, unspecified Status: Acute (2) Migraine: Code(s): G43.909 - Migraine, unspecified, not intractable, without status migrainosus Status: Acute Plan 1. TIA initial workup is negative will obtain the echocardiogram as well. 2. Abnormal MRI consistent with small-vessel disease raising the possibility of early dementia on the basis of the white matter disease findings to be kept in her understanding discussing with the patient with ongoing basis control of the blood pressure, and cholesterol though she is taking rosuvastatin 10mg daily. 2. Routine EEG can be obtained. Consult date: 01/29/25 HPI: Mary Rojas is a 69 year old female Has been admitted to the hospital through the emergency room for the complaints of sudden onset of left upper extremity weakness along with the slowing of the speech which was witnessed by her son. Patient had been doing some yd work throughout the day when she suddenly felt a headache in the back of her right head which was not unusual for her but then she started developing left upper extremity weakness and dropping things out of her left hand her son noted her speech was somewhat garbled by the time she came to the emergency room the symptomatology had resolved with NIH stroke scale of 0 but she did complain of mild headaches. She has been taking loratadine 10mg daily, she is not allergic to any medication, her initial exam in the emergency room was grossly nonfocal with normal vital signs except blood pressure 174/88, routine CBC was normal routine labs were normal initial CT scan of the head was negative for the bleed, initial head and neck CTA was negative with no involvement of the moderate-sized blood vessel or aneurysm, chest x-ray was negative, and EKG was without any atrial fibrillation or ST segment elevation subsequently MRI of the brain has been done which revealed extensive white matter disease involving the cerebral white matter, left basal ganglia on the basis of chronic small vessel ischemic disease. Review of Systems 2 Review of Systems: All systems reviewed & are unremarkable except as noted in HPI and below PMFSH Past Medical History Medical History Seasonal allergies Surgical History Surgical History No pertinent past surgical history Family History Family History Mother Cancer Depression Heart disease Cerebrovascular accident Grandparent Cancer Diabetes mellitus Hypertension Cerebrovascular accident Other Family history of malignant neoplasm of breast Family history of malignant neoplasm of uterus Social History Social History Years smoked: 45 Smoking status: Former smoker Tobacco type: cigarettes Alcohol intake: never Substance use: never Do You Feel Safe in your Home?: Yes Lack of Transportation: No Lack of Food: Never True Current Housing: I Have Housing Concerned About Future Housing: No Difficulty Paying Gas/Electric Bills: No Difficulty Paying for Meds: No Currently Unemployed: No Education: Master's Degree or Higher Difficulty w/ Childcare or Family Care: No Spiritual care concerns: No Meds Home Medications and Allergies Home Medications ?Medication ?Instructions ?Recorded ?Confirmed ?Type loratadine 10 mg tablet 10 mg PO DAILY 01/12/23 01/28/25 History rosuvastatin 10 mg tablet 10 mg PO DAILY 01/28/25 01/28/25 History Allergies Allergy/AdvReac Type Severity Reaction Status Date / Time pantoprazole AdvReac Intermediate Nose Bleed Verified 01/28/25 16:20 Vital Signs Vital Signs - 24 hr 01/28/25 15:36 01/28/25 15:45 01/28/25 15:48 Temperature 36.4 C Pulse Rate 79 84 84 Respiratory Rate 18 20 Blood Pressure 174/88 H Pulse Oximetry 97 97 Oxygen Delivery Room Air 01/28/25 15:52 01/28/25 16:36 01/28/25 17:33 Temperature 36.3 C L Pulse Rate 80 70 Respiratory Rate 20 16 Blood Pressure 167/93 H 129/69 Pulse Oximetry 98 97 97 Oxygen Delivery Room Air 01/28/25 20:00 01/28/25 22:34 01/29/25 00:00 Temperature 36.4 C Pulse Rate 70 78 71 Respiratory Rate 16 18 Blood Pressure 154/72 H Pulse Oximetry 97 97 Oxygen Delivery Room Air 01/29/25 04:00 01/29/25 06:00 01/29/25 08:44 Temperature 36.1 C L Pulse Rate 69 74 Respiratory Rate 18 Blood Pressure 130/86 Pulse Oximetry 96 97 Oxygen Delivery Room Air 01/29/25 08:50 01/29/25 08:50 01/29/25 12:00 Temperature Pulse Rate 64 85 Respiratory Rate Blood Pressure Pulse Oximetry Oxygen Delivery Room Air Exam 2 Narrative: Exam revealed her to be awake alert cooperative in no obvious acute distress at the time of initial interview she was eating her lunch which we told her to finish and will come back and examined, subsequently her speech was not dysphasic not dysarthric not dysphonic, head was normocephalic with no bruit, ear nose throat examination were normal, neck supple with no cervical bruit no thyromegaly no lymphadenopathy, heart regular with no murmur, lungs clear to auscultation, abdomen is soft nontender normal bowel sounds, neurologically she is awake alert oriented x3 his speech not dysphasic not dysarthric not dysphonic, pupils round regular feels the vision full extraocular movements full with no nystagmus facial sensation intact face symmetrical in midline uvula midline motor examination revealed her to have normal strength and tone in upper and lower extremities reflexes symmetrical plantars downgoing. There is no cerebellar deficit. Results Labs 01/28/25 15:05 01/28/25 15:07 Labs: Short CBC 01/28/25 Range/Units 15:05 WBC 9.0 (4.5-10.0) K/mm3 Hgb 13.3 (12.0-15.0) g/dL Hct 39.1 (37.0-47.0) % Plt Count 321 (150-375) k/mm3 BMP 01/28/25 01/28/25 15:05 15:07 Sodium 139 Potassium 3.8 Chloride 104 Carbon Dioxide 23 BUN 13 Creatinine 0.93 1.00 Glucose 118 H Calcium 9.8 Cardiac Enzymes 01/28/25 Range/Units 15:05 Troponin I < 0.012 (0.000-0.034) ng/mL Liver Function 01/28/25 Range/Units 15:05 Total Bilirubin 0.8 (0.2-1.3) mg/dL AST 25 (14-36) U/L ALT 20 (6-35) U/L Alkaline Phosphatase 87 (38-126) U/L Albumin 4.7 (3.5-5.1) g/dL
[2025-01-29] MEDS: ACETAMINOPHEN 325 MG TABLET 650 MG PO (21:44)
[2025-01-30] VITALS: PULSE 64
[2025-01-30 04:00] VITALS: PULSE 71
[2025-01-30 04:47] VITALS: BP 126/87; PULSE 65; RESP 18; TEMP 36.6; O2SAT 95
[2025-01-30 08:00] VITALS: PULSE 102
--- NOTE | 2025-01-30 08:34 | P.PNIM_ITS ---
Progress Note: A&P Assessment and Plan (1) Acute CVA (cerebrovascular accident): Code(s): I63.9 - Cerebral infarction, unspecified Status: Acute (2) Uncontrolled hypertension: Code(s): I10 - Essential (primary) hypertension Status: Acute (3) Migraine: Code(s): G43.909 - Migraine, unspecified, not intractable, without status migrainosus Status: Acute (4) Tobacco dependence: Code(s): F17.200 - Nicotine dependence, unspecified, uncomplicated Status: Acute (5) Hyperlipidemia: Code(s): E78.5 - Hyperlipidemia, unspecified Status: Acute Plan Acute CVA Patient had a sudden onset weakness of left arm, slurred speech, symptom resolved in the ED CT head shows no acute intracranial issues, CT head and neck shows no significant stenosis Possible acute CVA brain MRI 1. Extensive nonspecific cerebral white matter disease and pontine disease and left basal ganglia disease, which likely represents chronic small vessel ischemic disease., echocardiogram with bubble study 1. Left ventricular chamber dimension is normal. 2. Left ventricular systolic function is normal, estimated at 65-70%. 3. There is mildly increased left ventricular wall thickness. 4. The left ventricular diastolic function is grade I diastolic dysfunction. 5. Right ventricular systolic function is normal. 6. Intact interatrial septum visualized by color flow and agitated saline imaging. Negative bubble study. 7. There is mild mitral valve regurgitation. 8. There is mild tricuspid valve regurgitation. Continue aspirin 81 mg daily p.o., Plavix 75 mg daily p.o. Continue home medication Crestor 10 mg daily p.o. Follow-up lipid panel Telemetry monitoring Neuro check Four precaution Consult PT OT Consult neurologist for evaluation treatment, appreciate consultation Continue aspirin, Plavix and statin on discharge Patient will see neurologist at scheduled appointment Uncontrolled hypertension Hold hypertension medication during hypertension permission except systolic pressure above 220 hour diastolic above 120 Blood pressure is controlled well, patient is not on hypertension medication Patient needs to follow up PCP for evaluation and management Tobacco dependence Advised patient stop smoking Provide nicotine patch Subjective Date/time seen: 01/30/25 08:34 Interval history: Patient has no new weakness vision change slurred speech overnight Exam Narrative: GENERAL: Pleasant, in no acute distress. Well-nourished. - EYES: EOMI. Anicteric. - HENT: Moist mucous membranes. - LUNGS: Clear to auscultation bilateral ly, no wheezing, rhonchi, or rales. - CARDIOVASCULAR: Regular rate and rhyth m. No murmur. No JVD. - ABDOMEN: Soft, non-tender and non-dist ended. No palpable masses. - EXTREMITIES: No edema. Peripheral puls es 2+. Non-tender. - NEUROLOGIC: No focal neurological defi cits. CN II-XII grossly intact. - PSYCHIATRIC: Awake, Alert and oriented x 3. Appropriate mood and affect. - SKIN: No rashes or lesions. Warm. - LYMPH: No cervical lymphadenopathy. Objective Data Vital Signs Vital Signs: Vital Signs - 24 hr 01/29/25 08:44 01/29/25 08:50 01/29/25 08:50 Temperature Pulse Rate 64 Respiratory Rate Blood Pressure Pulse Oximetry 97 Oxygen Delivery Room Air Room Air 01/29/25 12:00 01/29/25 14:00 01/29/25 16:00 Temperature 97.0 F L Pulse Rate 85 71 65 Respiratory Rate 18 Blood Pressure 135/78 Pulse Oximetry 96 Oxygen Delivery 01/29/25 19:37 01/29/25 20:00 01/30/25 00:00 Temperature 98.0 F Pulse Rate 68 67 64 Respiratory Rate 18 Blood Pressure 150/74 H Pulse Oximetry 100 Oxygen Delivery 01/30/25 04:00 01/30/25 04:47 Temperature 97.9 F Pulse Rate 71 65 Respiratory Rate 18 Blood Pressure 126/87 Pulse Oximetry 95 Oxygen Delivery Intake/Output Intake/Output: Intake & Output 01/28/25 01/28/25 01/29/25 01/30/25 00:59 23:59 23:59 23:59 Intake Total 400 3694 100 Balance 400 3694 100 Meds/Results Medications: Active Medications Generic Name Dose Route Start Last Admin Trade Name Freq PRN Reason Stop Dose Admin Acetaminophen 650 mg 01/29/25 21:26 01/29/25 21:44 Acetaminophen 325 Mg Tablet PO 650 mg Q4H PRN Administration Mild Pain (1-3) or Fever Aspirin 81 mg 01/29/25 09:00 01/29/25 10:44 Aspirin 81 Mg Enteric Tablet PO 81 mg QAM ARBEN Administration Clopidogrel Bisulfate 75 mg 01/29/25 09:00 01/29/25 10:44 Clopidogrel Bisulfate 75 Mg Tablet PO 75 mg QAM ARBEN Administration Heparin Sodium (Porcine) 5,000 units 01/29/25 14:00 01/30/25 05:29 Heparin Sodium 5,000 Units/Ml Vial SUB-Q Not Given Q8HR [facility] Perflutren Lipid Microsphere 0 ml 01/29/25 09:06 Perflutren Lipid Microspheres 1.5 Ml Vial Diluted To 10 Ml Total Volume IV PUSH 02/01/25 09:07 ONCE PRN adequate visualization Protocol Rosuvastatin Calcium 10 mg 01/29/25 09:00 01/29/25 10:44 Rosuvastatin 10 Mg Tablet PO 10 mg DAILY ARBEN Administration Radiology Results: ITS Impressions Head CT 01/28/25 15:04 IMPRESSION: No acute intracranial findings. Head/Neck CTA 01/28/25 15:14 IMPRESSION: 1. Normal CTA head and neck. Percent stenosis per NASCET criteria is Chest X-Ray 01/28/25 15:41 IMPRESSION: No acute cardiopulmonary pathology. Brain MRI 01/29/25 09:21 IMPRESSION: 1. Extensive nonspecific cerebral white matter disease and pontine disease and left basal ganglia disease, which likely represents chronic small vessel ischemic disease. Labs Labs: Laboratory Results - last 24 hr 01/29/25 09:29 Triglycerides 81 Cholesterol 167 LDL Cholesterol Direct 63 HDL Direct 76
--- NOTE | 2025-01-30 08:37 | PM.DS ---
DS: Admitting Diagnosis Discharge Date 01/30/25 Admitting Diagnosis (1) Acute CVA (cerebrovascular accident): Code(s): I63.9 - Cerebral infarction, unspecified Status: Acute (2) Uncontrolled hypertension: Code(s): I10 - Essential (primary) hypertension Status: Acute (3) Migraine: Code(s): G43.909 - Migraine, unspecified, not intractable, without status migrainosus Status: Acute (4) Tobacco dependence: Code(s): F17.200 - Nicotine dependence, unspecified, uncomplicated Status: Acute (5) Hyperlipidemia: Code(s): E78.5 - Hyperlipidemia, unspecified Status: Acute DS: Discharge Diagnosis Discharge Diagnosis (1) Acute CVA (cerebrovascular accident): Code(s): I63.9 - Cerebral infarction, unspecified Status: Acute (2) Uncontrolled hypertension: Code(s): I10 - Essential (primary) hypertension Status: Acute (3) Migraine: Code(s): G43.909 - Migraine, unspecified, not intractable, without status migrainosus Status: Acute (4) Tobacco dependence: Code(s): F17.200 - Nicotine dependence, unspecified, uncomplicated Status: Acute (5) Hyperlipidemia: Code(s): E78.5 - Hyperlipidemia, unspecified Status: Acute DS: Summary Hospital Course Hospital Course: 69 years old lady with history of hyperlipidemia, migraine, tobacco dependence, present ED was chief complaint of sudden onset slurred speech,, numbness weakness of left arm and hand that started about 1:15 p.m. yesterday. Patient was doing yd work yesterday, patient is on noticed patient had slurred speech. And patient noticed weakness of left upper extremity, repeated drop things from her left hand. Patient also had blurred vision. Patient denies headache, lightheadedness. Patient was sent to ED for evaluation, in the ED, symptom have resolved. Patient had headache, denies nausea vomiting, photophobia, patient also denies chest pain, palpitation, abdomen pain fever dysuria. Upon arrival in the ED, patient was afebrile, blood pressure stable, uncontrolled 174/88, pulse ox 97 on room air, CBC and CMP unremarkable. EKG shows sinus rhythm, no specific ST or T-wave changes,, chest issue shows no acute cardiopulmonary issues CT head shows no acute intracranial issues, CT head neck shows no stenosis, brain MRI pending Patient received aspirin 325 mg once, we admit patient for further evaluation and management The following med issues have been addressed during hospitalization Acute CVA Patient had a sudden onset weakness of left arm, slurred speech, symptom resolved in the ED CT head shows no acute intracranial issues, CT head and neck shows no significant stenosis Possible acute CVA brain MRI 1. Extensive nonspecific cerebral white matter disease and pontine disease and left basal ganglia disease, which likely represents chronic small vessel ischemic disease., echocardiogram with bubble study 1. Left ventricular chamber dimension is normal. 2. Left ventricular systolic function is normal, estimated at 65-70%. 3. There is mildly increased left ventricular wall thickness. 4. The left ventricular diastolic function is grade I diastolic dysfunction. 5. Right ventricular systolic function is normal. 6. Intact interatrial septum visualized by color flow and agitated saline imaging. Negative bubble study. 7. There is mild mitral valve regurgitation. 8. There is mild tricuspid valve regurgitation. Continue aspirin 81 mg daily p.o., Plavix 75 mg daily p.o. Continue home medication Crestor 10 mg daily p.o. Follow-up lipid panel Telemetry monitoring Neuro check Four precaution Consult PT OT Consult neurologist for evaluation treatment, appreciate consultation Continue aspirin, Plavix and statin on discharge Patient will see neurologist at scheduled appointment Uncontrolled hypertension Hold hypertension medication during hypertension permission except systolic pressure above 220 hour diastolic above 120 Blood pressure is controlled well, patient is not on hypertension medication Patient needs to follow up PCP for evaluation and management Tobacco dependence Advised patient stop smoking Provide nicotine patch Time Spent with Patient Time attestation: Total time spent providing and/or coordinating discharge services: Exam Narrative: GENERAL: Pleasant, in no acute distress. Well-nourished. - EYES: EOMI. Anicteric. - HENT: Moist mucous membranes. - LUNGS: Clear to auscultation bilaterally, no wheezing, rhonchi, or rales. - CARDIOVASCULAR: Regular rate and rhythm. No murmur. No JVD. - ABDOMEN: Soft, non-tender and non-distended. No palpable masses. - EXTREMITIES: No edema. Peripheral pulses 2+. Non-tender. - NEUROLOGIC: No focal neurological deficits. CN II-XII grossly intact. - PSYCHIATRIC: Awake, Alert and oriented x 3. Appropriate mood and affect. - SKIN: No rashes or lesions. Warm. - LYMPH: No cervical lymphadenopathy. DS: Data Data Completed and Pending Labs on day of discharge: Labs from last 24 hours 01/29/25 09:29 Triglycerides 81 Cholesterol 167 LDL Cholesterol Direct 63 HDL Direct 76 Discharge Plan Discharge Attending physician on discharge: Martinez Alvarenga Consulting providers: Howard Lockett; Robin Ruiz; Missael Cabrera V.; Levon Maurer Discharging Clinician: Martinez Alvarenga Anticipated Discharge Date/Time: 01/30/25 09:38 Patient Disposition: Home, Self-Care Activity: as tolerated Diet: as tolerated and heart healthy Patient Instructions: Antibiotic Form, Aspirin (By mouth), Clopidogrel (By mouth) Patient Language: Cameroonian Stand Alone Forms: General Discharge Information Follow-up/Referrals: Oscar,Fly Marcano MD [Primary Care Provider] - (Patient needs to see primary care doctor in 1 week) Rebecca Ann MD [Physician] - (Patient needs to call neurologist scheduled follow-up point) Discharge Medications: New clopidogrel 75 mg Tablet 75 mg PO QAM Qty: 30 0RF aspirin 81 mg Tablet,Delayed Release (Dr/Ec) 81 mg PO QAM Qty: 60 0RF Continued loratadine 10 mg tablet 10 mg PO DAILY rosuvastatin 10 mg tablet 10 mg PO DAILY Qty: 30 0RF Date of admission: 01/28/25 16:14 Primary Care Provider: BrandinFly Admitting Provider: Vitaly Cordon Attending physician on admission: Martinez Alvarenga Condition: Stable
[2025-01-30] MEDS: ROSUVASTATIN 10 MG TABLET PO (08:41)
[2025-01-30] MEDS: CLOPIDOGREL BISULFATE 75 MG TABLET PO (08:41)
[2025-01-30] MEDS: ASPIRIN 81 MG ENTERIC TABLET PO (08:41)
== END 2025-01-30 11:21 | disposition home or self-care (01) ==
LOC: ANHED 16:13 → ANH3MED 01-29 16:13
PROVIDERS: Admitting Provider Family Medicine; Emergency Provider Student in an Organized Health Care Education/Training Program; PCP Family Medicine; Visit Provider Hospitalist
DX: I63.9 Cerebral infarction, unspecified (principal); G83.24 Monoplegia of upper limb affecting left nondominant side; R47.81 Slurred speech; R29.700 NIHSS score 0; I10 Essential (primary) hypertension; F17.210 Nicotine dependence, cigarettes, uncomplicated; G43.909 Migraine, unspecified, not intractable, without status migrainosus; E78.5 Hyperlipidemia, unspecified; Z79.899 Other long term (current) drug therapy
CPT/HCPCS: 36415; 70450; 70496; 70498; 70553; 71045; 80053; 80061; 82948; 84484; 85025; 85610; 85730; 93005; 93306; 96375; 99285; A9270; G0378; Q9967

== ENCOUNTER 2025-06-24 16:42 | Emergency (ER) | payer MEDICARE, SELFPAY ==
[2025-06-24] VITALS (13 sets, daily range): BP systolic 119–153; BP diastolic 67–88; PULSE 61–74; RESP 11–22; TEMP 36.6; O2SAT 96–100
--- NOTE | ~2025-06-24 | XR_ITS ---
CHEST RADIOGRAPH, PA AND LATERAL CLINICAL HISTORY: syncope . COMPARISON: 01/28/2025 TECHNIQUE: PA and lateral views of the chest. FINDINGS The cardiomediastinal silhouette is unremarkable. The lungs are clear. IMPRESSION: No focal infiltrate or effusion. Reviewed, dictated and finalized at location A.
--- NOTE | 2025-06-24 16:51 | ECG_ITS ---
Test Date: 2025-06-24 17:26:10 Measurements Intervals Shirley Rate: 62 P: 57 UT: 222 QRS: 30 QRSD: 83 T: 7 QT: 403 QTc: 410 Interpretive Statements SINUS RHYTHM WITH FIRST DEGREE AV BLOCK BORDERLINE ECG Compared to ECG 01/28/2025 15:51:51 First degree AV block now present Electronically Signed On 06-24-2025 19:40:30 CDT by Brandon Angel D.O.
--- OUTSIDE RECORDS SUMMARY | 2025-06-24 17:05 | XMS_ITS | Encounter Summary ---
Author Organization [facility] Healthcare Address [address] [place] [address] Care Team Providers Care Fan Installer Name Role Phone Fly Moore MD Primary Care Provider [phone] Encounter Details Date Type Department Care Team (Late st Contact Info) Description 05/30/2025 Results Follow-Up [facility] Primary Care at [address] [address] Fly Moore MD [address] [place] [address] [address] [place] [address] Dexa Axial Skeleton Bone Density 1 or 2 Site Social History Tobacco Use Types Packs/Day Years Used Date Smoking Tobacco: Former Cigarettes 1 49 1 - 2018 Smokeless Tobacco: Never Comments:Smoking History Pac ks/day: 1 Packs Alcohol Use Standard Drinks/Week Comments [...] on file Legal Sex Female 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
--- OUTSIDE RECORDS SUMMARY | 2025-06-24 17:05 | XMS_ITS | Clinical Summary ---
Author Organization [facility] Address [address], [facility] [address] [place] [address] Phone Care Team Providers Care Child Development Assistant Name Role Phone Fly Moore MD Primary Care Provider [phone] Allergies No known active allergies Medications aspirin [...] Date Smoking Tobacco: Every Day Cigarettes 0.5 54.6 Started: 11/01/1970 Smokeless Tobacco: Never Alcohol Use [...] Comments Blood Pressure 118/72 01/10/2018 8:15 AM HIDES SOAKER Pulse 74 01/10/2018 8:15 AM HIDES SOAKER Temperature 36 C (96.8 F) 01/10/2018 8:15 AM HIDES SOAKER Respiratory Rate 20 01/10/2018 8:15 AM HIDES SOAKER Oxygen Saturation 96% 01/10/2018 8:15 AM HIDES SOAKER Inhaled Oxygen Concentration - - Weight 58.1 kg (128 lb) 01/04/2018 1:00 PM HIDES SOAKER Height 162.6 cm (5' 4) 01/04/2018 1:00 PM HIDES SOAKER Body Mass Index 21.97 01/04/2018 1:00 PM HIDES SOAKER Plan of Treatment Health Maintenance Due Date Last Done Comments Hepatitis C Virus (HCV) Screening 1955 TdaP Immunization 1955 Cologuard 2002 Immunochemical Fecal Occult Blood 2002 Zoster Immunization (1 of 2) 2007 Colonoscopy 01/10/2019 01/10/2018, 12/23, 11/07/2017 Colorectal Cancer Screening 01/10/2019 Pneumococcal Immunization (50+ years) (2 of 2 - PCV20 or PCV21) 06/24/2023 06/24/2022 SARS-COV-2 Immunization (3 - season) 2024 11/15/2021, 01/23/2021 Influenza Immunization (#1) 07/22/202509/21, 08/20/2020, 08/20/2019, Additional history exists Respiratory Syncytial Virus (RSV) Immunization (Adult) (1 - 1-dose 75+ series) 2032 Pneumococcal Immunization Combined Discontinued 06/24/2022 Hepatitis B Immunization Aged Out No longer eligible based on patient's age to complete this topic Human Papillomavirus (HPV) Immunization Aged Out No longer eligible based on patient's age to complete this topic Meningococcal Immunization (ACWY) Aged Out No longer eligible based on patient's age to complete this topic Rotavirus Immunization Aged Out No lo nger eligible based on patient's age to complete this topic Insurance MEDICAID [facility] MEDICARE C AETNA Care Teams Child Development Assistant Relationship Specialty Start Date End Date Fly Moore MD [address] [place] [address] PCP - General Family Medicine 11/04/22
--- OUTSIDE RECORDS SUMMARY | 2025-06-24 17:05 | XMS_ITS | Clinical Summary ---
Author Organization [address] Address [address] [place] [address] Care Team Providers Care Engagement Lead Name Role Phone Fly Moore MD Primary Care Provider [phone] Allergies Active Allergy Reactions Criticality Noted Date Comments Pantoprazole Other (See comments) Low 12/28/2023 Nose bleeds Medications loratadine 10 mg capsule Take by mouth daily as needed Active cholecalciferol (VITAMIN D-3) 5,000 unit tablet Ac tive aspirin 81 mg enteric coated tablet Take 1 tablet (81 mg total) by mouth daily 30 tablet 5 5 04/05/20 26 Active CALCIUM ORAL Take by mouth Active rosuvastatin (CRESTOR) 10 mg tablet TAKE 1 TABLET BY MOUTH EVERY DAY 100 tablet 1 5 Active metoprolol XL (TOPROL-XL) 25 mg extended release tabletIndications :TIA (transient ischemic attack),Primary hypertension Take 0.5 tablets (12.5 mg total) by mouth daily 45 tablet 3 5 05/22/20 26 Active clopidogreL (PLAVIX) 75 mg tablet Take 1 tablet (75 mg total) by mouth daily 30 tablet 5 5 06/14/20 25 Discontinu ed(Therapy completed) Active Problems Problem Noted Date Diagnosed Date TIA (transient ischemic attack) 04/10/2025 Trigger ring finger of right hand 12/07/2024 Right hand pain 12/07/2024 Trigger middle finger of right hand 12/07/2024 Trigger finger, right middle finger 06/27/2024 Primary hypertension 06/27/2023 Assessment & Plan (12/28/2023 10:08 AM WEIGHT LOSS CONSULTANT): Blood Pressure Follow-up: Lifestyle modifications education provided on sodium reduction, increase physical activity, reduce alcohol consumption, and weight reduction. Awaiting labs Mixed hyperlipidemia 06/27/2023 Assessment & Plan (12/28/2023 10:08 AM WEIGHT LOSS CONSULTANT): Awaiting lipid panel Vitamin D insufficiency 06/27/2023 Family history of colon cancer in mother 022 Overview (11/01/2022): Added automatically from request for surgery [id number] Personal history of colonic polyps 11/01/2022 Overview (11/01/2022): Added automatically from request for surgery [id number] Encounter for Medicare annual wellness exam 03/2022 Assessment & Plan (12/28/2024 8:39 AM WEIGHT LOSS CONSULTANT): A(n) yearly Medicare Annual Wellness Visit has [...] Encounters Date Type Department Care Team Description 06/17/2025 Telephone [facility] Primary Care at [address] [address] Nicole Robertson MA 06/14/2025 8:00 AM CDT Office Visit [facility] Neu[facility] [address] [address] LiaBong Si, MD TIA (transient ischemic attack) (Primary Dx); Small vessel disease, cerebrovascular 06/11/2025 Telephone [facility] Primary Care at [address] [address] Fly Moore MD Medical Question/Miscellaneous 05/30/2025 Results Follow-Up [facility] Primary Care at [address] [address] Fly Moore MD Dexa Axial Skeleton Bone Density 1 or 2 Site 05/22/2025 9:55 AM CDT - 05/22/2025 11:59 PM CDT Hospital Encounter [facility] [address] [place] [address] Screening for osteoporosis; Asymptomatic menopausal state Discharge Disposition: Discharge to home or self care 04/10/2025 10:30 AM CDT Office Visit [facility] Primary Care at [address] [address] Fly Moore MD Hospital discharge follow-up (Primary Dx); TIA (transient ischemic attack); Primary hypertension 04/04/2025 Telephone [facility] Primary Care at [address] [address] Fly Moore MD RICKY Questions 04/04/2025 Telephone [facility] Primary Care at [address] [address] Fly Moore MD Med Refill from Last 3 Months Immunizations Immunization Administration [...] Comments Brother Alive Father Maternal Grandmother Mother Sister 1 Alive Sister 2 Alive Social [...] on file Legal Sex Female 3:26 AM WEIGHT LOSS CONSULTANT Gender Identity Female 06/24/2022 8:12 AM CDT Sexual Orientation Straight 08/07/2024 12 :21 PM CDT 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 Not on file Not on file Obstetrics History Para Term AB IAB SAB Ectopic Multiple Livin g Live Births 4 4 4 Date Outcome GA Total Labor Labor//3rd Weight Sex Type Anes PTL Denice A1 A5 Name Clin Term Term Term Term Last Filed Vital Signs Vital Sign Reading Time Taken Comments Blood Pressure 138/84 06/14/2025 7:55 AM CDT Pulse 61 06/14/2025 7:55 AM CDT Temperature 36.3 C (97.4 F) 04/10/2025 10:32 AM CDT Respiratory Rate 18 04/10/2025 10:32 AM CDT Oxygen Saturation 96% 06/14/2025 7:55 AM CDT Inhaled Oxygen Concentration - - Weight 73.5 kg (162 lb) 06/14/2025 7:55 AM CDT Height 162.6 cm (5' 4) 06/14/2025 7:55 AM CDT Body Mass Index 27.81 06/14/2025 7:55 AM CDT Plan of Treatment Health Maintenance Due Date Last Done Comments Hepatitis B Screening 1973 Covid-19 Vaccine ( season) 2024 11/15/2021, 01/23/2021 Influenza Vaccine (#1) 2025 , 10/05/2022, 08/20/2020, Additional history exists Breast Cancer Screening-Mammogram 08/09/2025 08/09/2024, 08/03/2022, 05/03/2016, Additional history exists DTaP/Tdap/Td Vaccine (1 - Tdap) 11/20/2025 Postponed from 1968 (Insurance / Financial) Lung Cancer Screening 12/27/2025 12/26/2024, 023 Depression Screening 12/28/2025 12/28/2024, 06/27/2024, 12/28/2023, Additional history exists Fall Risk Assessment 12/28/2025 12/28/2024, 06/27/2023, 12/27/2022, Additional history exists Well Visit 65+ 12/28/2025 12/28/2024, 05/2023, 06/24/2022 Zoster Vaccine (1 of 2) 12/28/2025 Post poned from 2007 (Insurance / Financial) Osteoporosis Screening-Bone Density Scan 05/22/2027 05/22/2025, 08/03/2022 Colon Cancer Screening-Colonoscopy 01/10/2028 01/10/2018 Hepatitis C Screening Completed 06/24/2022 Pneumococcal vaccine 65+ Completed 06/27/2023, 02/2022 Procedures Procedure Name Priority Date/Time Associated Diagnosis Comments DEXA AXIAL SKELETON BONE DENSITY 1 OR MORE SITES Schedule Routine, Read Routine (OP Routine) 05/22/2025 10:10 AM CDT Screening for osteoporosis Asymptomatic menopausal state CT LUNG CANCER SCREENING Schedule Routine, Read Routine (OP Routine) 12/26/2024 3:38 PM WEIGHT LOSS CONSULTANT Personal history of tobacco use SCREENING MAMMOGRAM BILATERAL W SAMANTHA Schedule Routine, Read Routine (OP Routine) 08/09/2024 3:36 PM CDT Screening mammogram for breast cancer HEPATITIS C ANTIBODY Routine 06/24/2022 9:19 AM CDT Need for hepatitis C screening test COLONOSCOPY Routine 01/10/2018 from Last 3 Months or Most Recently Relevant to Health Maintenance Results * Dexa Axial Skeleton Bone Density 1 or 2 Site (05/22/2025 10:10 AM CDT) Anatomical Region Laterality Modality Body N/A Other 05/22/2025 5:17 PM CDT Narrative 05/22/2025 5:19 PM CDT EXAM DESCRIPTION: DEXA AXIAL SKELETON BONE DENSITY 1 OR MORE SITES REASON FOR STUDY: 70 y/o year old F with given history of: screen osteoporosis Osteoporosis screening Post menopausal Cold Rolling Coordinator/Model: [employer] SL (S/N [id number]) Facility LSC value of 0.022 for the AP spine, 0.027 for the femur, and 0.023 for the forearm. CLINICAL INFORMATION: Current height: 64.3 inches Maximum height: 66 inches Weight: 162 pounds Risk factors: Postmenopausal, secondary osteoporosis, asthma or emphysema COMPARISON: 08/03/2022 FINDINGS: AP LUMBAR SPINE L1-L4: Total BMD is 0.903 g/cm2 T-score is -1.3 This is increased in comparison to prior exam which is statistically significant. LEFT HIP: Total BMD is 0.820 g/cm2 T-score is -1.0 This is increased in comparison to prior exam which is not statistically significant. Femoral neck BMD is 0.652 g/cm2 T-score is -1.8 FRAX: 10 year risk for a major osteoporotic fracture is 10 %, 10 year risk for a hip fracture is 1.5 % Per National Osteoporosis Foundation guidelines, this patient does not meet the criteria for pharmacological treatment of patients with FRAX 10 year major osteoporotic fracture risk scores of = or greater than 20% or a 10 year probability of a hip fracture = or greater than 3%, to reduce fracture risk. Additional factors such as frequent falls are not represented in FRAX and warrant individual clinical judgment. IMPRESSION: 1. Low Bone Mass. REFERENCE: Bone mineral density: T-Score: Normal (T-score above or = -1.0) Low bone mass (T-score between -1.0 and -2.5) replaces the previously used term osteopenia Osteoporosis (T-score = or below -2.5) Z-Score: Within the expected range for age (Z-score above -2.0) Below the expected range for age (Z-score is -2.0 or below) Please see below follow up recommendations. Medical evaluation for secondary causes of low [...] greater than 3% should be considered for pharmacological treatment for the prevention of osteoporosis. For further information, including treatment recommendations, please refer to the 2019 ISCD Official Positions (http://www.iscd.org) and the NOF's Clinician's Guide to Prevention and Treatment of Osteoporosis (http://www.nof.org/professionals/clinical-guidelines) THIS IS AN ELECTRONICALLY VERIFIED FINAL REPORT 05/22/2025 5:19 PM - Electronically signed by Damion Marrero M.D. MF: ODETTE Report ID: [id number] Reading Location: [id number] Procedure Note Damion Marrero MD - 05/22/2025 EXAM DESCRIPTION: DEXA AXIAL SKELETON BONE DENSITY 1 OR MORE SITES REASON FOR STUDY: 70 y/o year old F with given history of: screen osteoporosis Osteoporosis screening Post menopausal Cold Rolling Coordinator/Model: [employer] SL (S/N [id number]) Facility LSC value of 0.022 for the AP spine, 0.027 for the femur, and0.023 for the forearm. CLINICAL INFORMATION: Current height: 64.3 inches Maximum height: 66 inches Weight: 162 pounds Risk factors: Postmenopausal, secondary osteoporosis, asthma or emphysema COMPARISON: 08/03/2022 FINDINGS: AP LUMBAR SPINE L1-L4: Total BMD is 0.903 g/cm2 T-score is -1.3 This is increased in comparison to prior exam which is statistically significant. LEFT HIP: Total BMD is 0.820 g/cm2 T-score is -1.0 This is increased in comparison to prior exam which is not statistically significant. Femoral neck BMD is 0.652 g/cm2 T-score is -1.8 FRAX: 10 year risk for a major osteoporotic fracture is 10 %, 10 year risk for ahip fracture is 1.5 % Per National Osteoporosis Foundation guidelines, this patient does notmeet the criteria for pharmacological treatment of patients with FRAX 10 yearmajor osteoporotic fracture risk scores of = or greater than 20% or a 10 year probability of a hip fracture = or greater than 3%, to reduce fracturerisk. Additional factors such as frequent falls are not represented in FRAX and warrant individual clinical judgment. IMPRESSION: 1. Low Bone Mass. REFERENCE: Bone mineral density: T-Score: Normal (T-score above or = -1.0) Low bone mass (T-score between -1.0 and -2.5) replaces thepreviously used term osteopenia Osteoporosis (T-score = or below -2.5) Z-Score: Within the expected range for age (Z-score above -2.0) Below the expected range for age (Z-score is -2.0 or below) Please see below follow up recommendations. Medical evaluation forsecondary causes of low bone mineral density may [...] or greaterthan 3% should be considered for pharmacological treatment for the preventionof osteoporosis. For further information, including treatment recommendations, please referto the 2019 ISCD Official Positions (http://www.iscd.org) and the NOF's Clinician's Guide to Prevention and Treatment of Osteoporosis (http://www.nof.org/professionals/clinical-guidelines) THIS IS AN ELECTRONICALLY VERIFIED FINAL REPORT 05/22/2025 5:19 PM - Electronically signed by Damion Marrero M.D. MF: ODETTE Report ID: [id number] Reading Location: [id number] us Fly Moore MD IMG DXA PROCEDURES Final Re sult * CT Lung Cancer Screening (12/26/2024 3:38 PM WEIGHT LOSS CONSULTANT) Anatomical Region Laterality Modality Chest N/A Computed Tomogra phy 12/27/2024 8:58 AM WEIGHT LOSS CONSULTANT Narrative 12/27/2024 9:23 AM WEIGHT LOSS CONSULTANT EXAM DESCRIPTION: CT LUNG CANCER SCREENING REASON [...] by Lalito Gomez M.D. JR: Report ID: [id number] Reading Location: [place] [address] Procedure Note Lalito Gomez MD - 12/27/2024 [...] by Lalito Gomez M.D. JR: Report ID: [id number] Reading Location: [place] [address] us Fly Moore MD IMG CT PROCEDURES Final Res ult * SCREENING MAMMOGRAM BILATERAL W SAMANTHA (08/09/2024 [...] There has been no suspicious interval change. Fly Moore MD IMG MAMMO PROCEDURES Final Result * Hepatitis C antibody (06/24/2022 9:19 AM CDT) Hep C Ab Nonreactive Nonreactive ELIS PANCHAL [...] GENERAL ORDERABLES Final Result Performing Organization Address City/State/[facility] [place] Phone Number ELIS PANCHAL [address] Department [place] [address] * Colonoscopy (01/10/2018) Anatomical Region Laterality Modality Other Historical Provider ENDOSCOPY PROCEDURES Angie l Result from Last 3 Months or Most Recently Relevant to Health Maintenance Insurance AETNA MEDICARE GOLD AETNA MEDICARE GOLD Care Teams Engagement Lead Relationship Specialty Start Date End Date Fly Moore MD [address] [place] [address] PCP - General Family Medicine 06/22/22
--- OUTSIDE RECORDS SUMMARY | 2025-06-24 17:05 | XMS_ITS | Referral Summary ---
Author Organization [facility] [address] Address [address] [place] [address] Care Team Providers Care Metallurgical Specialist Name Role Phone Fly Moore MD Primary Care Provider Encounters Date Type Department Care Team Description 06/17/2025 Telephone [facility] Primary Care at [address] [address] Nicole Robertson MA 06/14/2025 8:00 AM CDT Office Visit [facility] Neu[facility] [address] [address] Bong Fitzgerald Si, MD TIA (transient ischemic attack) (Primary Dx); Small vessel disease, cerebrovascular 06/11/2025 Telephone [facility] Primary Care at [address] [phone] Fly Moore MD Medical Question/Miscellaneous 05/30/2025 Results Follow-Up [facility] Primary Care at [address] [phone] Fly Moore MD Dexa Axial Skeleton Bone Density 1 or 2 Site 05/22/2025 9:55 AM CDT - 05/22/2025 11:59 PM CDT Hospital Encounter [facility] [address] [place] [address] Screening for osteoporosis; Asymptomatic menopausal state Discharge Disposition: Discharge to home or self care 04/10/2025 10:30 AM CDT Office Visit [facility] Primary Care at [address] [address] Fly Moore MD Hospital discharge follow-up (Primary Dx); TIA (transient ischemic attack); Primary hypertension 04/04/2025 Telephone [facility] Primary Care at [address] [address] Fly Moore MD RICKY Questions 04/04/2025 Telephone [facility] Primary Care at [address] [address] Fly Moore MD Med Refill from Last 3 Months Allergies Active Allergy [...] 06/27/2023 Assessment & Plan (12/28/2023 10:08 AM SIGNAL OPERATOR LINGUIST): Blood Pressure Follow-up: Lifestyle modifications education provided on sodium reduction, increase physical activity, reduce alcohol consumption, and weight reduction. Awaiting labs Mixed hyperlipidemia 06/27/2023 Assessment & Plan (12/28/2023 10:08 AM SIGNAL OPERATOR LINGUIST): Awaiting lipid panel Vitamin D insufficiency 06/27/2023 Family history of colon cancer in mother 022 Overview (11/01/2022): Added automatically from request for surgery [id number] Personal history of colonic polyps 11/01/2022 Overview (11/01/2022): Added automatically from request for surgery [id number] Encounter for Medicare annual wellness exam 03/2022 Assessment & Plan (12/28/2024 8:39 AM SIGNAL OPERATOR LINGUIST): A(n) yearly Medicare Annual Wellness Visit has [...] on file Legal Sex Female 3:26 AM SIGNAL OPERATOR LINGUIST Gender Identity Female 06/24/2022 8:12 AM CDT Sexual Orientation Straight 08/07/2024 12 :21 PM CDT 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 Not on file [...] 06/14/2025 7:55 AM CDT Plan of Treatment Not on file Procedures Procedure Name Priority Date/Time Associated Diagnosis Comments DEXA AXIAL SKELETON BONE DENSITY 1 OR MORE SITES Schedule Routine, Read Routine (OP Routine) 05/22/2025 10:10 AM CDT Screening for osteoporosis Asymptomatic menopausal state CT LUNG CANCER SCREENING Schedule Routine, Read Routine (OP Routine) 12/26/2024 3:38 PM SIGNAL OPERATOR LINGUIST Personal history of tobacco use SCREENING MAMMOGRAM [...] of: screen osteoporosis Osteoporosis screening Post menopausal Acute Care Clinical Nurse Specialist/Model: [employer] SL (S/N [id number]) Facility LSC value of 0.022 for the [...] Damion Marrero M.D. MF: ODETTE Report ID: [id number] Reading Location: [place] [address] Procedure Note Damion Marrero MD - 05/22/2025 EXAM DESCRIPTION: DEXA AXIAL SKELETON BONE DENSITY 1 OR MORE SITES REASON FOR STUDY: 70 y/o year old F with given history of: screen osteoporosis Osteoporosis screening Post menopausal Acute Care Clinical Nurse Specialist/Model: [employer]X SL (S/N [id number]) Facility LSC value of 0.022 for the [...] Damion Marrero M.D. MF: ODETTE Report ID: [id number] Reading Location: [id number] Fly Moore MD IMG DXA PROCEDURES Final Re sult * CT Lung Cancer Screening (12/26/2024 3:38 PM SIGNAL OPERATOR LINGUIST) Anatomical Region Laterality Modality Chest N/A Computed Tomogra phy 12/27/2024 8:58 AM SIGNAL OPERATOR LINGUIST Narrative 12/27/2024 9:23 AM SIGNAL OPERATOR LINGUIST EXAM DESCRIPTION: CT LUNG CANCER SCREENING REASON [...] by Lalito Gomez M.D. JR: Report ID: [id number] Reading Location: [place] [address] Procedure Note Lalito Gomez MD - 12/27/2024 [...] by Lalito Gomez M.D. JR: Report ID: [id number] Reading Location: [place] [address] us Fly Moore MD IMG CT PROCEDURES [...] LAB MICROBIOLOGY - GENERAL ORDERABLES Final Result ELIS PANCHAL [address] Department of Laboratories [place] [id number] * Colonoscopy (01/10/2018) Anatomical Region Laterality Modality Other Historical Provider ENDOSCOPY PROCEDURES Angie l Result from Last 3 Months or Most Recently Relevant to Health Maintenance Insurance AETNA MEDICARE GOLD AETNA MEDICARE GOLD Care Teams Metallurgical Specialist Relationship Specialty Start Date End Date Fly Moore MD [address] [place] [address] PCP - General Family Medicine 06/22/22
[2025-06-24] MEDS: SODIUM CHLORIDE 0.9% IV 1,000 ML 999 ML IV CONT (17:06)
--- NOTE | 2025-06-24 17:10 | ED.SYNCOPE ---
HPI - Syncope General Chief Complaint: Syncope Stated Complaint: syncope Time Seen by Provider: 06/24/25 16:51 History of Present Illness HPI narrative: Patient is a 70-year-old female who presents ER after syncope. Patient had spent the morning mode in her yd. She then went inside and had arrest and drinks monitor. She then did some weed eating and started to feel warm. She came back inside in her son offered make her lunch. She then went to get the mail and came back inside. She then had some sudden pain right-sided chest near the abdomen, felt nauseous and lightheaded. She then lost consciousness and was incontinent of urine. No chest pain at this time. She had not eaten this morning. She reports she had a recent Holter monitor that she work for 10 days instead of 14 and recently got results. She did not bring them with her but her son may bring them at a later point. Related Data Home Medications ?Medication ?Instructions ?Recorded ?Confirmed ?Last Taken ?Type loratadine 10 mg tablet 10 mg PO DAILY 01/12/23 01/28/25 Unknown History Allergies Allergy/AdvReac Type Severity Reaction Status Date / Time pantoprazole AdvReac Intermediate Nose Bleed Verified 01/28/25 16:20 Review of Systems Review of Systems: All systems reviewed & are unremarkable except as noted in HPI and below Constitutional: Constitutional: Reports no additional constitutional complaints Cardiovascular: Cardiovascular: Reports no additional cardiovascular complaints Respiratory: Respiratory: Reports no additional respiratory complaints Gastrointestinal: Gastrointestinal: Reports no additional gastrointestinal complaints Musculoskeletal: Musculoskeletal: Reports no additional musculoskeletal complaints [facility] Past Medical History Medical History (Updated 06/24/25 @ 19:39 by Calixto Rodriguez MD) Migraine Transient ischemic attack (TIA) Hyperlipidemia Uncontrolled hypertension Seasonal allergies Surgical History Surgical History No pertinent past surgical history Family History Family History Mother Cancer Depression Heart disease Cerebrovascular accident Grandparent Cancer Diabetes mellitus Hypertension Cerebrovascular accident Other Family history of malignant neoplasm of breast Family history of malignant neoplasm of uterus Social History Social History Years smoked: 45 Smoking status: Former smoker Tobacco type: cigarettes Alcohol intake: never Substance use: never Do You Feel Safe in your Home?: Yes Lack of Transportation: No Lack of Food: Never True Current Housing: I Have Housing Concerned About Future Housing: No Difficulty Paying Gas/Electric Bills: No Difficulty Paying for Meds: No Currently Unemployed: No Education: Master's Degree or Higher Difficulty w/ Childcare or Family Care: No Spiritual care concerns: No Exam Narrative: GENERAL: Well-appearing, well-nourished, and in no acute distress. HEAD: Normocephalic, atraumatic. EYES: PERRL and EOMI. ENT: Mucous membranes moist. CHEST: Clear to auscultation. No respiratory distress. HEART: Regular rate and rhythm. Normal peripheral pulses. ABDOMEN: Soft, nontender, nondistended. EXTREMITIES: Normal range of motion. No edema. SKIN: Warm, dry, no rash. NEURO: Alert and oriented x3. PSYCH: Normal mood and affect. Course Course Emergency Course: Evidence of UTI and the urine. CBC normal CMP normal a trip. Troponin negative. Appropriate for discharge home with oral antibiotics. Follow-up with PCP which is scheduled for 07/02. Vital Signs Vital signs: Vital Signs Temperature 97.8 F 06/24/25 16:39 Pulse Rate 63 06/24/25 16:39 Respiratory Rate 12 06/24/25 16:39 Blood Pressure 135/85 06/24/25 16:39 Pulse Oximetry 98 06/24/25 16:39 Oxygen Delivery Room Air 06/24/25 16:39 Temperature 97.8 F 06/24/25 16:39 Pulse Rate 65 06/24/25 18:33 Respiratory Rate 22 H 06/24/25 18:33 Blood Pressure 146/81 H 06/24/25 18:33 Pulse Oximetry 97 06/24/25 18:33 Oxygen Delivery Room Air 06/24/25 16:39 MDM - Syncope Lab Data 06/24/25 17:05 06/24/25 17:05 Labs: Lab Results 06/24/25 06/24/25 Range/Units 17:05 18:15 WBC 6.8 (4.5-10.0) K/mm3 RBC 4.25 (4.2-5.4) M/mm3 Hgb 12.5 (12.0-15.0) g/dL Hct 38.0 (37.0-47.0) % MCV 89.4 (80-100) fl MCH 29.4 (26-34) pg MCHC 32.9 (32-36) g/dl RDW 12.5 (11.5-14.5) % Plt Count 291 (150-375) k/mm3 MPV 10.0 (7.4-10.4) fl Immature Gran % (Auto) 0.7 H (0-0.5) % Neut % (Auto) 50.7 (45.5-73.1) % Lymph % (Auto) 41.3 (18.3-44.2) % [place] % (Auto) 5.1 (2.6-8.5) % Eos % (Auto) 1.8 (0-4.4) % Baso % (Auto) 0.4 (0.2-1.2) % Lymph # (Auto) 2.82 (0.9-3.2) K/mm3 [place] # (Auto) 0.4 (0.1-0.6) K/mm3 Eos # (Auto) 0.1 (0-0.3) K/mm3 Baso # (Auto) 0.0 (0.0-0.1) K/mm3 Abs Immat Gran (auto) 0.05 H (0.00-0.031) K/mm3 Absolute Neuts (auto) 3.5 (1.3-6.7) K/mm3 Absolute Nucleated RBC 0.000 (0.0-0.012) K/mm3 Nucleated RBC % 0.0 (0.0-0.2) % Sodium 141 (137-145) mmol/L Potassium 4.0 (3.4-5.0) mmol/L Chloride 106 (98-107) mmol/L Carbon Dioxide 26 (22-30) mmol/L Anion Gap 9 (4-12) mmol/L BUN 11 (7-17) mg/dL Creatinine 1.00 (0.7-1.0) mg/dL Estim Creat Clear Calc 46 ml/min Estimated GFR 55 L (59 - ) Glucose 108 (65-110) mg/dL Calcium 9.6 (8.4-10.2) mg/dL Total Bilirubin 0.6 (0.2-1.3) mg/dL AST 30 (14-36) U/L ALT 22 (6-35) U/L Alkaline Phosphatase 79 (38-126) U/L Troponin I < 0.012 (0.000-0.034) ng/mL Total Protein 7.5 (6.3-8.2) g/dL Albumin 4.5 (3.5-5.1) g/dL Urine Color Yellow (Yellow) Urine Appearance Clear (Clear) Urine pH 5.5 (5.0-9.0) Ur Specific [place] 1.013 (1.001-1.035) Urine Protein Negative (Negative) mg/dL Urine Glucose (UA) Negative (Negative) mg/dL Urine Ketones Negative (Negative) mg/dL Ur Blood (Man) Negative (Negative) Urine Nitrate Positive H (Negative) Urine Bilirubin Negative (Negative) Urine Urobilinogen 0.2 (<2.0) mg/dL Leukocyte Esterase Rfl 2+ H (Negative) CITLALLI/UL Urine RBC 0-2 (0-2) /hpf Urine WBC 21-50 H (0-3) /hpf Ur Squamous Epith Cells Occasional (Few) /hpf Urine Bacteria 4+ H /hpf Urine Casts 3-5 Imaging Data Radiologist's impression: ITS Impressions Chest X-Ray 06/24/25 17:28 IMPRESSION: No focal infiltrate or effusion. ECG Data EKG #1: ECG completion date: 06/24/25 ECG completion time: 17:26 EKG Interpretation: normal rate, sinus rhythm, no ST changes, normal QRS and normal QT Discharge Plan Discharge Clinical Impression: Acute UTI, Syncope Patient Disposition: Home Condition: Stable Instructions: Antibiotic Form Additional Instructions: You should return to the emergency department if you develop severe nausea and vomiting and are unable to keep liquids down, if you develop severe back/flank or stomach pain, or if your symptoms are not clearly improving at home. Patient Language: Bangladeshi Prescriptions: New cephalexin 500 mg capsule 500 mg PO Q12H Qty: 14 0RF No Action loratadine 10 mg tablet 10 mg PO DAILY clopidogrel 75 mg Tablet 75 mg PO QAM Qty: 30 0RF aspirin 81 mg Tablet,Delayed Release (Dr/Ec) 81 mg PO QAM Qty: 60 0RF rosuvastatin 10 mg tablet 10 mg PO DAILY Qty: 30 0RF Follow-up/Referrals: Oscar,Fly Marcano MD [Primary Care Provider] - 1 Week
[2025-06-24 17:25] LABS: Alanine Aminotransferase 22 U/L (6-35); Albumin Level 4.5 g/dL (3.5-5.1); Alkaline Phosphatase 79 U/L (38-126); Anion Gap 9 mmol/L (4-12); Aspartate Amino Transferase 30 U/L (14-36); Bilirubin,Total 0.6 mg/dL (0.2-1.3); Blood Urea Nitrogen 11 mg/dL (7-17); Calcium 9.6 mg/dL (8.4-10.2); Carbon Dioxide 26 mmol/L (22-30); Chloride 106 mmol/L (98-107); Estimated CRCL calculation 46 ml/min; Estimated Glomerular Filt Rate 55; Glucose 108 mg/dL (65-110); Potassium 4.0 mmol/L (3.4-5.0); Sodium 141 mmol/L (137-145); Total Protein 7.5 g/dL (6.3-8.2)
[2025-06-24 17:26] LABS: Hematocrit 38.0 % (37.0-47.0); Hemoglobin 12.5 g/dL (12.0-15.0); Immature Granulocyte Percent A 0.7 % (0-0.5); Lymphocytes Absolute Auto 2.82 K/mm3 (0.9-3.2); Mean Corpuscular HGB Conc 32.9 g/dl (32-36); Mean Corpuscular Hemoglobin 29.4 pg (26-34); Mean Corpuscular Volume 89.4 fl (80-100); Nucleated Red Blood Cells Absolute Auto 0.000 K/mm3 (0.0-0.012); Nucleated Red Blood Cells Perc 0.0 % (0.0-0.2); Platelet Count Result 291 k/mm3 (150-375); Red Blood Count 4.25 M/mm3 (4.2-5.4); White Blood Count 6.8 K/mm3 (4.5-10.0)
[2025-06-24 18:26] LABS: Add Urine Microscopic? YES; Appearance Urine Clear (Clear); Glucose Urine UA Negative (Negative); Leukocyte Esterase Ur 2+ LEU/UL (Negative); Nitrate Urine Positive (Negative); Specific Grav Ur 1.013 (1.001-1.035)
[2025-06-24 18:58] LABS: Troponin I < 0.012 ng/mL (0.000-0.034)
== END 2025-06-24 19:58 | disposition home or self-care (01) ==
PROVIDERS: Emergency Provider Emergency Medicine; PCP Family Medicine
DX: N39.0 Urinary tract infection, site not specified (principal); R55 Syncope and collapse; I44.0 Atrioventricular block, first degree; E78.5 Hyperlipidemia, unspecified; I10 Essential (primary) hypertension; Z86.73 Personal history of transient ischemic attack (TIA), and cerebral infarction without residual deficits
CPT/HCPCS: 36415; 71046; 80053; 81001; 84484; 85025; 87086; 93005; 96360; 99284; J7030